=== PATIENT | male | born 1970 | race Caucasian/White ===

== ENCOUNTER 2016-11-20 14:47 | Inpatient (IN) | payer BC, OTHER ==
[~2016-11-20] VITALS: Ht 172.7 cm; Wt 168.8 kg
[2016-11-20] VITALS (13 sets, daily range): BP systolic 85–150; BP diastolic 31–77; PULSE 80–100; TEMP 36.4–36.6; O2SAT 91–98; BMI 57.7
[2016-11-20] MEDS: HEPARIN SOD (PORCINE) 1000 UNIT/ML 10 ML VIAL IV SCH ×2 (01:00→23:15)
[2016-11-20] MEDS ORDERED: BUPR75TA20 PO (15:43)
[2016-11-20] MEDS ORDERED: GLC/500 PO (15:43)
[2016-11-20] MEDS ORDERED: GABA-112 PO (15:43)
[2016-11-20] MEDS ORDERED: ASPI81TA28 PO (15:43)
[2016-11-20] MEDS ORDERED: AMT50 PO (15:43)
[2016-11-20] MEDS ORDERED: ATOR10TA88 PO (15:43)
[2016-11-20] MEDS ORDERED: AZITHROMYCIN IV 500 MG in DEXTROSE 5% 250ML 250 ML IV STA (15:52)
[2016-11-20] MEDS ORDERED: ALBUT/IPRATROP 3MG/0.5MG NEB 3 ML VIAL INH STA (15:52)
[2016-11-20] MEDS ORDERED: MAGNESIUM SULFATE 1GM / D5W 1 GM BAG IV STA (15:52)
[2016-11-20 15:57] LABS: BASO % 0.1 %; BASO ABS # 0.02 K/uL (0-0.2); COMPLETE YES; EOS % 0.9 %; HEMATOCRIT 40.3 % (42-52); IG% 0.5 %; LYMPH ABS # 1.81 K/uL (1.2-3.4); MEAN CORPUSCULAR HEMOGLOBIN 31.1 pg (25-34); MEAN CORPUSCULAR HGB CONC 33.7 g/dl (32-36); MEAN PLATELET VOLUME 9.9 fL (7.4-10.4); NEUT % 80.5 %; PLATELET COUNT 272 K/uL (130-400); RED BLOOD COUNT 4.38 M/uL (4.7-6.1); WHITE BLOOD COUNT 15.06 K/uL (4.8-10.8)
[2016-11-20] MEDS ORDERED: METHYLPREDNISOLONE IV 125 MG in SYRINGE 0 ML IV SCH (16:00)
[2016-11-20] MEDS: ALBUT/IPRATROP 3MG/0.5MG NEB 3 ML VIAL INH SCH ×2 (16:00→16:57)
[2016-11-20] MEDS ORDERED: PIPERACILLIN/TAZOBACTAM 4.5 GM/100ML D5W IV STA (16:07)
[2016-11-20] MEDS ORDERED: VANCOMYCIN INJ 2,750 MG in SODIUM CHLORIDE 0.9% 500ML 500 ML IV STA (16:07)
--- NOTE | 2016-11-20 16:28 | EMERGENCY ROOM VISIT NOTE ---
History Report prepared by Duane: Terrance Payne Under the Supervision of: Dr. Lion Cota M.D. First contact with patient: 14:54 Chief Complaint: DIZZY Stated Complaint: DIZZY, WEAK, KNEE FALLING, DIFF BREATHING, SHAKEY Nursing Triage Summary: pt for the last 2 wks he has had dizziness, falling, SOB pt was told by coworkers to come in and sig other states he has been confused History of Present Illness The patient is a 46 year old male who presents to the Emergency Room with complaints of worsening shortness of breath beginning two weeks ago. The patient also complains of dizziness, and a productive cough. His cough produces a yellow or "dark-white" sputum. He notes that his coworkers and family have found the patient to be confused recently with some slurred speech, and has been falling asleep very easily. The patient denies any fevers, chills, nausea, vomiting, or abnormal diarrhea. He is a smoker and smokes 15 cigarettes per day. He is chronically on Ativan and Percocet. The patient states that he has fallen a few times recently as well. He states that fell out of bed while sleeping, and fell after getting up from a chair quickly. He denies any recent prolonged immobilization. The patient has no history of blood clots. Source of History: patient Onset: Two weeks ago Quality: other (shortness of breath) Timing: worsening Associated Symptoms: + cough, No fevers, No chills, No nausea, No vomiting, No diarrhea (abnormal) Note: Additional symptoms: dizziness, confusion, slurred speech. Review of Systems See HPI for pertinent positives and negatives. A total of ten systems were reviewed and were otherwise negative. Past Medical & Surgical Medical Problems: (1) Anxiety (2) Depression (3) Diabetes mellitus, type II (4) Dyslipidemia (5) HTN (hypertension) (6) Morbid obesity with BMI of 45.0-49.9, adult Surgical Problems: (1) H/O foot surgery (2) History of back surgery Family History No pertinent family history stated. Social History Occupation Status: employed Current/Historical Medications Scheduled Amitriptyline Hcl (Elavil), 25 MG PO HS Aspirin (Aspirin Ec), 81 MG PO DAILY Atorvastatin (Lipitor), 10 MG PO DAILY Bupropion (Wellbutrin), 75 MG PO DAILY Gabapentin (Neurontin), 100 MG PO TID Metformin Hcl (Glucophage), 500 MG PO BID Allergies Coded Allergies: No Known Allergies (Unverified , 11/20/16) Physical Exam Vital Signs Date Time Temp Pulse Resp B/P (MAP) Pulse Ox O2 Delivery O2 Flow Rate FiO2 11/20/16 16:53 96 26 106/62 93 BiPAP 11/20/16 16:53 100 93 4.0 11/20/16 16:18 88 24 91 Nasal Cannula 2.0 11/20/16 15:16 100 11/20/16 14:59 91 Nasal Cannula 4.0 11/20/16 14:59 91 Nasal Cannula 4.0 11/20/16 14:51 36.5 109 22 146/73 87 Room Air Physical Exam GENERAL: Awake, alert, Dyspneic in mild distress HENT: Normocephalic, atraumatic. Oropharynx unremarkable. Dry mucous membranes. EYES: Normal conjunctiva. Sclera non-icteric. NECK: Supple. No nuchal rigidity. FROM. No JVD. RESPIRATORY: Diminished breath sounds throughout with wheezes. Labored breathing with accessory muscle use. CARDIAC: Regular rate, normal rhythm. Extremities warm and well perfused. Pulses equal. ABDOMEN: Obese, soft, non-distended. No tenderness to palpation. No rebound or guarding. No masses. RECTAL: Deferred. MUSCULOSKELETAL: Chest examination reveals no tenderness. The back is symmetrical on inspection without obvious abnormality. There is no CVA tenderness to palpation. No joint edema. LOWER EXTREMITIES: No discoloration. Symmetric 1+ lower extremity edema. NEURO: Normal sensorium. No sensory or motor deficits noted. SKIN: No rash or jaundice noted. Medical Decision & Procedures ER Provider Diagnostic Interpretation: X-ray: Per my interpretation, radiologist review. CHEST ONE VIEW PORTABLE FINDINGS: The study is significantly limited secondary to the patient's body habitus. The heart is enlarged. There is mediastinal widening, possibly secondary to mediastinal fat deposition. There are hazy bibasilar opacities. While likely relating to overlying soft tissue, a right basal airspace opacity cannot be excluded. A PA and lateral study is recommended in follow-up.[ IMPRESSION: 1. Technically limited study 2. Mild cardiomegaly 3. Mediastinal widening, possibly secondary to fat deposition 4. Right basal airspace opacity versus overlying chest wall tissues. A PA and lateral study should be considered in follow-up. Electronically signed by: Immanuel Taylor M.D. 11/20/2016 5:07 PM Laboratory Results 11/20/16 15:40 Red Blood Count 4.38, Mean Corpuscular Volume 92.0, Mean Corpuscular Hemoglobin 31.1, Mean Corpuscular Hemoglobin Concent 33.7, Mean Platelet Volume 9.9, Neutrophils (%) (Auto) 80.5, Lymphocytes (%) (Auto) 12.0, Monocytes (%) (Auto) 6.0, Eosinophils (%) (Auto) 0.9, Basophils (%) (Auto) 0.1, Neutrophils # (Auto) 12.12, Lymphocytes # (Auto) 1.81, Monocytes # (Auto) 0.91, Eosinophils # (Auto) 0.13, Basophils # (Auto) 0.02 Test 11/20/16 00:00 11/20/16 15:40 11/20/16 15:44 11/20/16 16:40 Urine Color YELLOW Urine Appearance CLOUDY (CLEAR) Urine pH 5.0 (4.5-7.5) Urine Specific [place] >= 1.030 (1.000-1.030) Urine Protein 1+ (NEG) Urine Glucose (UA) NEG (NEG) Urine Ketones TRACE (NEG) Urine Occult Blood 2+ (NEG) Urine Nitrite NEG (NEG) Urine Bilirubin NEG (NEG) Urine Urobilinogen NEG (NEG) Urine Leukocyte Esterase NEG (NEG) Urine RBC >30 /hpf (0-4) Urine WBC 5-10 /hpf (0-5) Urine Epithelial Cells >30 /lpf (0-5) Urine Calcium Oxalate Crystals PRESENT (NONE PRSENT) Urine Bacteria NEG (NEG) White Blood Count 15.06 K/uL (4.8-10.8) Red Blood Count 4.38 M/uL (4.7-6.1) Hemoglobin 13.6 g/dL (14.0-18.0) Hematocrit 40.3 % (42-52) Mean Corpuscular Volume 92.0 fL (80-100) Mean Corpuscular Hemoglobin 31.1 pg (25-34) Mean Corpuscular Hemoglobin Concent 33.7 g/dl (32-36) Platelet Count 272 K/uL (130-400) Mean Platelet Volume 9.9 fL (7.4-10.4) Neutrophils (%) (Auto) 80.5 % Lymphocytes (%) (Auto) 12.0 % Monocytes (%) (Auto) 6.0 % Eosinophils (%) (Auto) 0.9 % Basophils (%) (Auto) 0.1 % Neutrophils # (Auto) 12.12 K/uL (1.4-6.5) Lymphocytes # (Auto) 1.81 K/uL (1.2-3.4) Monocytes # (Auto) 0.91 K/uL (0.11-0.59) Eosinophils # (Auto) 0.13 K/uL (0-0.5) Basophils # (Auto) 0.02 K/uL (0-0.2) RDW Standard Deviation 50.9 fL (36.4-46.3) RDW Coefficient of Variation 15.2 % (11.5-14.5) Immature Granulocyte % (Auto) 0.5 % Immature Granulocyte # (Auto) 0.07 K/uL (0.00-0.02) Direct Bilirubin 0.1 mg/dl (0-0.2) Pro-B-Type Natriuretic Peptide 4492 pg/ml (0-450) Procalcitonin 0.26 ng/ml (0-0.5) Hepatitis B Surface Antigen NEG (NEG) Hepatitis B Surface Antibody NEG Bedside Lactic Acid Venous 2.22 mmol/L (0.90-1.70) Venous Blood pH 7.19 (7.36-7.41) Venous Blood Partial Pressure CO2 59 mmHg (38.0-50.0) Venous Blood Partial Pressure O2 38 mmHg Venous Blood HCO3 22 mmol/L Venous Blood Oxygen Saturation < 60.0 % Venous Blood Base Excess -7.1 mEq/L Laboratory results reviewed by me Medications Administered Medications (Trade) Dose Ordered Sig/Marcell Route Start Time Stop Time Status Last Admin Dose Admin Azithromycin 500 mg/Dextrose 255 ml @ 125 mls/hr NOW STAT IV 11/20/16 15:52 11/20/16 17:54 DC 11/20/16 16:53 125 MLS/HR Magnesium Sulfate (Magnesium Sulfate) 2 gm NOW STAT IV 11/20/16 15:52 11/20/16 16:08 DC 11/20/16 15:52 2 GM Vancomycin HCl 2750 mg/Sodium Chloride 555 ml @ 200 mls/hr ONE STAT IV 11/20/16 16:07 11/20/16 18:53 DC 11/20/16 16:53 200 MLS/HR Piperacillin Sod/ Tazobactam Sod (Zosyn Iv) 4.5 gm NOW STAT IV 11/20/16 16:07 11/20/16 16:11 DC 11/20/16 17:24 4.5 GM Calcium Gluconate 2000 mg/Sodium Chloride 70 ml @ 240 mls/hr NOW STAT IV 11/20/16 17:10 11/20/16 17:27 DC 11/20/16 17:51 240 MLS/HR Dextrose (Dextrose 50% 50ML Syringe) 100 ml NOW STAT IV 11/20/16 17:10 11/20/16 17:13 DC 11/20/16 17:52 100 ML Sodium Polystyrene Sulfonate (Kayexalate Susp) 30 gm NOW STAT PO 11/20/16 17:10 11/20/16 17:13 DC 11/20/16 17:53 30 GM Methylprednisolone Sodium Succinate 125 mg/Syringe 2 ml @ 1.5 mls/min 1730 ONCE IV 11/20/16 17:30 11/20/16 17:31 DC 11/20/16 17:49 1.5 MLS/MIN Insulin Human Regular 10 units/ Syringe 10 ml @ 30 mls/min TODAY@1745 ONCE IV 11/20/16 17:45 11/20/16 17:46 DC 11/20/16 17:52 30 MLS/MIN ECG Indication: SOB/dyspnea Rate (beats per minute): 100 Rhythm: normal sinus Findings: other (QRS of 174) Comparison ECG Date: June 22, 2010 Change: QRS significantly prolonged. ED Course 1506: The patient was evaluated in room A10. A complete history and physical exam was performed. 1552: Ordered DuoNeb 45 mL INH, Magnesium Sulfate 2 gm IV, Azithromycin 500 mg/ Dextrose 255 mL @ 125 mL/hr IV. 1600: Ordered DuoNeb 3 mL INH. 1607: Ordered Zosyn 4.5 gm IV, Vancomycin 555 mL @ 200 mL/hr IV. 1710: Ordered Kayexalate Susp 30 gm PO, Dextrose 50% 100 mL IV, Calcium Gluconate 2000 mg/Sodium Chloride 70 ml @ 240 mls/hr IV. 1725: Upon reexamination, the patient was resting comfortably. I discussed the test results and treatment plan with him. The patient will be evaluated for further management. 1730: Ordered Methylprednisolone Sodium Succinate 125 mg 2 mL @ 1.5 mL/min 1745: Ordered Insulin Human Regular 10 units/syringe 10 mL @ 30 mL/min IV. Medical Decision Triage Nursing notes reviewed. The patient's presentation and history were concerning for COPD exacerbation, pneumonia, bronchitis, PE, sepsis, ACS, and renal failure. The patient is a 46-year-old gentleman with a past medical history of 20 years of one pack per day who presents emergency Department with worsening fatigue dyspnea, lightheadedness for the past 3 weeks that became worse today per history of present illness. While the patient is dyspneic in mild distress one or 2 words in in between breath taking, patient is diminished with diffuse wheezes throughout. Bedside echo is limited secondary to body habitus but LV and RV function appear grossly intact. His most consistent with a undiagnosed COPD and exacerbation. 2 with continuous steroids mag, azithro. Lactate elevated at 2. therefore we'll treat with broad-spectrum antibiotics for sepsis. The patient's dyspnea persists despite nebs, placed on BiPAP. VBG with CO2 59, pH 7.19. Received call from lab regarding chemistry, which had been delayed. Cr. 7 and potassium 9. Labs momentarily not pushing over to [employer]. Eventually labs printed confirmed Cr. 7 but with K 6.6 In setting of hyperkalemia patient's EKG concerning for related changes with QRS 170s with RBBB different from prior EkG 2010. Given Calcium, Insulin, dextrose, Kayexalate. I d/w Dr. Barrientos nephrology who will evaluate the patient. I d/w Dr. Gonzalez , ICU rat culturist, and Dr. Arrieta, Medicine hospitalist who will admit the patient to the ICU for further management. Medication Reconcilliation Current Medication List: was personally reviewed by me Blood Pressure Screening Patient's blood pressure: Elevated blood pressure Blood pressure disposition: Elevated BP felt to be situational Consults Time Called: 1715 Consulting Physician: Dr. Barrientos -Nephrology Returned Call: [phone] Discussed the patient's case. Dr. Barrientos will evaluate the patient. Additional Consults: Time Called: 1715 Consulted Physician: Dr. Gonzalez -ICU Returned Call: [phone] Additional Comments: Discussed the patient's case. The patient will be evaluated in the ICU. Time Called: 1723 Consulted Physician: Dr. Berny Hernandez Returned Call: [phone] Additional Comments: Discussed the patient's case. The patient will be evaluated for further treatment and disposition. Impression Primary Impression: Respiratory failure with hypercapnia Additional Impressions: Sepsis Acute renal failure Critical Care I have personally spent greater than 125 minutes of critical care time in the direct management of this patient. This includes bedside care, interpretation of diagnostic studies, and testing, discussion with consultants, patient, and family members, and other required patient management activities. This 125 minutes is in excess of all separately billable procedures. Scribe Attestation The scribe's documentation has been prepared under my direction and personally reviewed by me in its entirety. I confirm that the note above accurately reflects all work, treatment, procedures, and medical decision making performed by me. Departure Information Dispostion Being Evaluated By Hospitalist Referrals Syed Wolff M.D.([facility]) (PCP) Patient Instructions My [facility] Problem Qualifiers
[2016-11-20 16:55] LABS: VEN BLOOD GAS BASE EXCESS -7.1 mEq/L; VENOUS BLOOD GAS PCO2 59 mmHg (38.0-50.0); VENOUS BLOOD GAS PO2 38 mmHg
[2016-11-20 16:57] LABS: VEN BLD GAS O2 SATURATION < 60.0 %
--- NOTE | 2016-11-20 17:05 | EMERGENCY ROOM VISIT NOTE ---
History First contact with patient: 14:55 Chief Complaint: DIZZY Stated Complaint: DIZZY, WEAK, KNEE FALLING, DIFF BREATHING, SHAKEY Nursing Triage Summary: pt for the last 2 wks he has had dizziness, falling, SOB pt was told by coworkers to come in and sig other states he has been confused History of Present Illness The patient is a 46 year old male who presents to the Emergency Room with complaints of two weeks of shortness of breath and wheezing -Pt is accompanied by his sister. -Pt says he came into today because coworkers and family have noticed that he had been confused lately -Pt complains of productive cough during this duration. -Pt has smoked 1 ppd for 23 years -Pt has a PMHx of HTN, HLD, T2DM, anxiety -Pt describes trouble sleeping in the evening and day time somnolence. -Pt denies CP, fevers and upper respiratory symptoms -Pt denies N/V/D Review of Systems see below Constitutional: No fever, No chills, No sweats Respiratory: + cough, + sputum, + wheezing, + shortness of breath, + dyspnea on exertion, + dyspnea at rest Cardiovascular: No chest pain Abdomen: No pain, No nausea, No vomiting Past Medical/Surgical History Medical Problems: (1) Diabetes (2) HTN (hypertension) (3) Hyperkalemia (4) Hyperlipemia (5) Renal failure Social History Smoking Status: Current Every Day Smoker Alcohol Use: none Drug Use: none Marital Status: single Housing Status: lives alone Pt lives alone, works as a gate clerk Current/Historical Medications Scheduled Amitriptyline Hcl (Elavil), 25 MG PO HS Aspirin (Aspirin Ec), 81 MG PO DAILY Atorvastatin (Lipitor), 10 MG PO DAILY Bupropion (Wellbutrin), 75 MG PO DAILY Gabapentin (Neurontin), 100 MG PO TID Metformin Hcl (Glucophage), 500 MG PO BID Physical Exam Vital Signs Date Time Temp Pulse Resp B/P (MAP) Pulse Ox O2 Delivery O2 Flow Rate FiO2 11/20/16 16:53 96 26 106/62 93 BiPAP 11/20/16 16:53 100 93 4.0 11/20/16 16:18 88 24 91 Nasal Cannula 2.0 11/20/16 15:16 100 11/20/16 14:59 91 Nasal Cannula 4.0 11/20/16 14:59 91 Nasal Cannula 4.0 11/20/16 14:51 36.5 109 22 146/73 87 Room Air Physical Exam see below General Appearance: + moderate distress, + obese Head: normocephalic, atraumatic Eyes: normal inspection, sclerae normal ENT: normal ENT inspection, hearing grossly normal, pharynx normal Neck: supple, no adenopathy, + pertinent finding (Pt has thick neck ) Respiratory/Chest: chest non-tender, + respiratory distress, + accessory muscle use, + wheezing (throughout, bilaterally on inspiration and expiration ) Cardiovascular: regular rate, rhythm, no edema, no murmur, + pertinent finding Abdomen / GI: normal bowel sounds, non tender, + distended Extremities: + pedal edema, + swelling Medical Decision & Procedures Laboratory Results 11/20/16 15:40 Red Blood Count 4.38, Mean Corpuscular Volume 92.0, Mean Corpuscular Hemoglobin 31.1, Mean Corpuscular Hemoglobin Concent 33.7, Mean Platelet Volume 9.9, Neutrophils (%) (Auto) 80.5, Lymphocytes (%) (Auto) 12.0, Monocytes (%) (Auto) 6.0, Eosinophils (%) (Auto) 0.9, Basophils (%) (Auto) 0.1, Neutrophils # (Auto) 12.12, Lymphocytes # (Auto) 1.81, Monocytes # (Auto) 0.91, Eosinophils # (Auto) 0.13, Basophils # (Auto) 0.02 11/20/16 15:40 Test 11/20/16 15:40 11/20/16 15:44 11/20/16 16:40 White Blood Count 15.06 K/uL (4.8-10.8) Red Blood Count 4.38 M/uL (4.7-6.1) Hemoglobin 13.6 g/dL (14.0-18.0) Hematocrit 40.3 % (42-52) Mean Corpuscular Volume 92.0 fL (80-100) Mean Corpuscular Hemoglobin 31.1 pg (25-34) Mean Corpuscular Hemoglobin Concent 33.7 g/dl (32-36) Platelet Count 272 K/uL (130-400) Mean Platelet Volume 9.9 fL (7.4-10.4) Neutrophils (%) (Auto) 80.5 % Lymphocytes (%) (Auto) 12.0 % Monocytes (%) (Auto) 6.0 % Eosinophils (%) (Auto) 0.9 % Basophils (%) (Auto) 0.1 % Neutrophils # (Auto) 12.12 K/uL (1.4-6.5) Lymphocytes # (Auto) 1.81 K/uL (1.2-3.4) Monocytes # (Auto) 0.91 K/uL (0.11-0.59) Eosinophils # (Auto) 0.13 K/uL (0-0.5) Basophils # (Auto) 0.02 K/uL (0-0.2) RDW Standard Deviation 50.9 fL (36.4-46.3) RDW Coefficient of Variation 15.2 % (11.5-14.5) Immature Granulocyte % (Auto) 0.5 % Immature Granulocyte # (Auto) 0.07 K/uL (0.00-0.02) Anion Gap 10.0 mmol/L (3-11) Est Creatinine Clear Calc Drug Dose 18.9 ml/min Estimated GFR () 10.0 Estimated GFR (Non- 8.6 BUN/Creatinine Ratio 9.5 (10-20) Calcium Level 8.2 mg/dl (8.5-10.1) Total Bilirubin 0.3 mg/dl (0.2-1) Direct Bilirubin 0.1 mg/dl (0-0.2) Aspartate Amino Transf (AST/SGOT) 17 U/L (15-37) Alanine Aminotransferase (ALT/SGPT) 24 U/L (12-78) Alkaline Phosphatase 66 U/L (45-117) Troponin I < 0.015 ng/ml (0-0.045) Pro-B-Type Natriuretic Peptide 4492 pg/ml (0-450) Total Protein 8.4 gm/dl (6.4-8.2) Albumin 3.6 gm/dl (3.4-5.0) Bedside Lactic Acid Venous 2.22 mmol/L (0.90-1.70) Venous Blood pH 7.19 (7.36-7.41) Venous Blood Partial Pressure CO2 59 mmHg (38.0-50.0) Venous Blood Partial Pressure O2 38 mmHg Venous Blood HCO3 22 mmol/L Venous Blood Oxygen Saturation < 60.0 % Venous Blood Base Excess -7.1 mEq/L Medications Administered Medications (Trade) Dose Ordered Sig/Marcell Route Start Time Stop Time Status Last Admin Dose Admin Azithromycin 500 mg/Dextrose 255 ml @ 125 mls/hr NOW STAT IV 11/20/16 15:52 11/20/16 17:54 DC 11/20/16 16:53 125 MLS/HR Magnesium Sulfate (Magnesium Sulfate) 2 gm NOW STAT IV 11/20/16 15:52 11/20/16 16:08 DC 11/20/16 15:52 2 GM Vancomycin HCl 2750 mg/Sodium Chloride 555 ml @ 200 mls/hr ONE STAT IV 11/20/16 16:07 11/20/16 18:53 11/20/16 16:53 200 MLS/HR Piperacillin Sod/ Tazobactam Sod (Zosyn Iv) 4.5 gm NOW STAT IV 11/20/16 16:07 11/20/16 16:11 DC 11/20/16 17:24 4.5 GM Calcium Gluconate 2000 mg/Sodium Chloride 70 ml @ 240 mls/hr NOW STAT IV 11/20/16 17:10 11/20/16 17:27 DC 11/20/16 17:51 240 MLS/HR Dextrose (Dextrose 50% 50ML Syringe) 100 ml NOW STAT IV 11/20/16 17:10 11/20/16 17:13 DC 11/20/16 17:52 100 ML Sodium Polystyrene Sulfonate (Kayexalate Susp) 30 gm NOW STAT PO 11/20/16 17:10 11/20/16 17:13 DC 11/20/16 17:53 30 GM Methylprednisolone Sodium Succinate 125 mg/Syringe 2 ml @ 1.5 mls/min 1730 ONCE IV 11/20/16 17:30 11/20/16 17:31 DC 11/20/16 17:49 1.5 MLS/MIN Insulin Human Regular 10 units/ Syringe 10 ml @ 30 mls/min TODAY@1745 ONCE IV 11/20/16 17:45 11/20/16 17:46 DC 11/20/16 17:52 30 MLS/MIN ED Course Considering the following differential: New onset obstructive disease: COPD, Asthma, CHF, renal failure 1500 history and physical Ordered preliminary labs and EKG Ordered Duonebs, Bipap, 125 mg Solumedrol IV 1544 Lactate--2.22, WBC--15.06 Started patient empirically on: Azithromycin, Vancomycin and Zosyn Ordered CXR Pt found to have Cr 7 of and K of 6.6. Medical Decision 46 yo male presented today c/o shortness of breath, confusion and dizziness for the past 2 weeks. Initially in the ED course the patient was treated for respiratory distress with Duonebs, solumedrol and BIPAP In addition, as lab works showed elevated lactate and WBC. With this, the patient was started on empiric antibiotic treatment. The patients was found to have an elevated Cr of 7 and K of 6.6. Pt had EKG changes compared with a previous hospitalizations with a RBBB. Thus measures to temporize hyperkalemia with insulin. Additionally, Kayexalate and Ca gluconate were ordered. As precaution, pads were also placed on the patient. Patient was determined to be in renal failure and subsequently consult with nephrology was initiated. In addition, consults with the hospitalist team and the ICU were also initiated. Impression Primary Impression: Renal failure Additional Impressions: Respiratory failure Sepsis Departure Information Dispostion Admitted as an inpatient Referrals Syed Wolff M.D.([facility]) (PCP) Patient Instructions My [facility] Problem Qualifiers
--- NOTE | 2016-11-20 17:08 | DIAGNOSTIC IMAGING REPORT ---
CHEST ONE VIEW PORTABLE CLINICAL HISTORY: Shortness of breath COMPARISON STUDY: 06/22/2010 FINDINGS: The study is significantly limited secondary to the patient's body habitus. The heart is enlarged. There is mediastinal widening, possibly secondary to mediastinal fat deposition. There are hazy bibasilar opacities. While likely relating to overlying soft tissue, a right basal airspace opacity cannot be excluded. A PA and lateral study is recommended in follow-up.[ IMPRESSION: 1. Technically limited study 2. Mild cardiomegaly 3. Mediastinal widening, possibly secondary to fat deposition 4. Right basal airspace opacity versus overlying chest wall tissues. A PA and lateral study should be considered in follow-up. Electronically signed by: Immanuel Taylor M.D. 11/20/2016 5:07 PM Dictated Date/Time: 11/20/2016 5:05 PM
[2016-11-20] MEDS ORDERED: CALCIUM GLUCONATE 10% 2,000 MG in SODIUM CHLORIDE 0.9% 50ML 50 ML IV STA (17:10)
[2016-11-20] MEDS ORDERED: INSULIN HUMAN REGULAR PER UNIT 10 UNITS in SYRINGE 9.9 ML IV STA (17:10)
[2016-11-20] MEDS ORDERED: SODIUM POLYST. SULF SUSP 15G/60ML PO STA (17:10)
[2016-11-20] MEDS ORDERED: DEXTROSE 50% 50 ML SYR IV STA (17:10)
[2016-11-20] MEDS ORDERED: FENTANYL CITRATE 100 MCG 2 ML CARP IV ONE (17:23)
[2016-11-20] MEDS ORDERED: VECURONIUM BROMIDE 10 MG VIAL IV ONE (17:23)
[2016-11-20] MEDS ORDERED: ETOMIDATE 2 MG/ML 20 ML VIAL IV ONE ×2 (17:23→20:00)
[2016-11-20] MEDS ORDERED: ROCURONIUM BROMIDE 10 MG/ML 10 ML VIAL IV ONE (17:23)
[2016-11-20] MEDS ORDERED: METHYLPREDNISOLONE 125 MG in SYRINGE 0 ML IV ONE (17:30)
[2016-11-20] MEDS ORDERED: INSULIN HUMAN REGULAR PER UNIT 10 UNITS in SYRINGE 9.9 ML IV ONE (17:45)
[2016-11-20 17:59] LABS: ALKALINE PHOSPHATASE 66 U/L (45-117); ALT/SGPT 24 U/L (12-78); AST/SGOT 17 U/L (15-37); BLOOD UREA NITROGEN 66 mg/dl (7-18); BUN/CREATININE RATIO 9.5 (10-20); CALCIUM 8.2 mg/dl (8.5-10.1); CARBON DIOXIDE 19 mmol/L (21-32); CHLORIDE 99 mmol/L (98-107); GLUCOSE 93 mg/dl (70-99); POTASSIUM 6.6 mmol/L (3.5-5.1); SODIUM 129 mmol/L (136-145)
[2016-11-20] MEDS ORDERED: HEPARIN SOD 5000 UNIT/0.5 ML CARP SQ SCH (18:15)
[2016-11-20] MEDS ORDERED: ONDANSETRON INJ 2 MG/ML 2 ML VIAL IV PRN (18:15)
[2016-11-20] MEDS ORDERED: LEVALBUTEROL/IPRATROPIUM NEB INH PRN (18:30)
[2016-11-20] MEDS ORDERED: CONSULT PHARMACY STA (18:38)
[2016-11-20] MEDS ORDERED: GLUCOSE 40% GEL 15 GM TUBE PO PRN (18:45)
[2016-11-20] MEDS ORDERED: GLUCAGON FOR INJ 1 MG VIAL SQ PRN (18:45)
[2016-11-20] MEDS ORDERED: GLUCOSE 10 TABS/TUBE PO PRN (18:45)
[2016-11-20] MEDS ORDERED: DEXTROSE 50% 50 ML SYR IV PRN (18:45)
[2016-11-20] MEDS ORDERED: IPRATROPIUM BROMIDE NEB SOLN 0.02% 2.5 ML VIAL INH PRN ×2 (19:00→21:00)
[2016-11-20] MEDS ORDERED: LEVALBUTEROL 1.25MG/0.5ML NEB INH PRN ×2 (19:00→21:00)
[2016-11-20] MEDS: FENTANYL CITRATE INJ 50 MCG/1 ML 2 ML VIAL IV PRN ×2 (19:30→22:51)
[2016-11-20] MEDS ORDERED: PIPERACILL/TAZOBAC CONSULT ACTIVE PRN (19:45)
[2016-11-20] MEDS ORDERED: CIPROFLOXACIN CONSULT ACTIVE PRN ×2 (19:45)
[2016-11-20] MEDS ORDERED: VANCOMYCIN CONSULT ACTIVE PRN (19:45)
[2016-11-20] MEDS ORDERED: RAPID SEQUENCE INDUCTION BAG ONE (19:46)
[2016-11-20] MEDS ORDERED: MIDAZOLAM 125MG/250ML D5W 250 ML IV SCH (19:48)
--- NOTE | 2016-11-20 19:57 | Nephrology Consultation ---
Nephrology Consultation Date of Consultation: Nov 20, 2016. Attending Physician: Dr Cota Requesting Physician: Dr Cota Reason for Consultation: Hyperkalemia History of Present Illness 46 year old male on whom we have few recent records came to ER today w/ confusion reported at work and a few weeks of wheezing and shortness of breath and productive cough w/ yellow sputum. Other PMH includes NIDDM, HTN, HL, 1PPD cigarettes, chronic pain, morbid obesity, depression and anxiety. Labs in ER remarkable for creatinine 7 and K 6.6, C02 19; WBC 15K. His 02 sats were in 80s on arrival; he needed bipap to improve/maintain them. His ECG shows RBBB. He was given kayexalate, calcium, insulin IV, long neb treatment. Repeat bmp is pending as is ABG. He has been here for 3 hrs and has not yet voided. Denies nsaid use. The med list in [facility] reports that he takes hctz, lisinopril; however none of these are listed on meds he reports at hospital today. His sister reports he has been having vertiginal sx for several weeks prior to presentation. The pt denies new/changing voiding sx or flank pain or gross hematuria or recent med change. He is sitting up/leaning forward in mild distress mostly from being restless on bipap. He speaks in full sentences and gives some hx. Does relate, for example, recent fall out of bed and scraped his R conklin doing this. Most recent [facility] records show creatinine of 1.1 in 02/2015. he can give some history tonight but is also confused. Past Medical/Surgical History Medical Problems: (1) Acute kidney injury Status: Acute (2) Hyperkalemia Status: Acute (3) Respiratory failure with hypercapnia Status: Acute (4) Sepsis Status: Acute -as per HPI Family History unable to obtain d/t clinical condition Social History Smoking Status: Current Every Day Smoker Alcohol Use: none Drug Use: none Marital Status: single Housing Status: lives alone Occupation Status: employed Allergies Coded Allergies: No Known Allergies (Unverified , 11/20/16) Medications Current Inpatient Medications Medications (Trade) Dose Ordered Sig/Marcell Route Start Time Stop Time Status Last Admin Dose Admin Albuterol/ Ipratropium (Duoneb) 3 ml Q4R INH 11/20/16 16:00 12/20/16 15:59 Ondansetron HCl (Zofran Inj) 4 mg Q6H PRN IV 11/20/16 18:15 12/20/16 18:14 Methylprednisolone Sodium Succinate 125 mg/Syringe 2 ml @ 1.5 mls/min Q8 IV 11/21/16 02:00 12/21/16 01:59 UNV Miscellaneous Information (Pharmacy Consult) 1 ea NOW STAT N/A 11/20/16 18:38 11/20/16 18:39 UNV Insulin Aspart (novoLOG ASPART) SLIDING SCALE If C... ACHS SC 11/20/16 21:00 12/20/16 20:59 UNV Glucose (Glucose 40% Gel) 15-30 GRAMS 15 GRAMS... UD PRN PO 11/20/16 18:45 12/20/16 18:44 Glucose (Glucose Chew Tab) 4-8 Tablets 4 Tabl... UD PRN PO 11/20/16 18:45 12/20/16 18:44 Dextrose (Dextrose 50% 50ML Syringe) 25-50ML OF 50% DW IV FOR... UD PRN IV 11/20/16 18:45 12/20/16 18:44 Glucagon (Glucagon Inj) 1 mg UD PRN SQ 11/20/16 18:45 12/20/16 18:44 Ipratropium [place] (Atrovent 0.02% 0.5MG/2.5ML Neb) 0.5 mg Q6R INH 11/20/16 21:00 12/20/16 20:59 Levalbuterol (Xopenex 1.25MG/ 0.5ML Neb) 1.25 mg Q6R INH 11/20/16 21:00 12/20/16 20:59 Ipratropium [place] (Atrovent 0.02% 0.5MG/2.5ML Neb) 0.5 mg Q2H PRN INH 11/20/16 19:00 12/20/16 18:59 Levalbuterol (Xopenex 1.25MG/ 0.5ML Neb) 1.25 mg Q2H PRN INH 11/20/16 19:00 12/20/16 18:59 Home Meds and Scripts Medications Dose Route/Sig Max Daily Dose Days Date Category Aspirin Ec (Aspirin) 81 Mg Tab 81 Mg PO DAILY 11/20/16 Reported Elavil (Amitriptyline HCl) 50 Mg Tab 25 Mg PO HS 11/20/16 Reported Neurontin (Gabapentin) 100 Mg Cap 100 Mg PO TID 11/20/16 Reported Wellbutrin (Bupropion HCl) 75 Mg Tab 75 Mg PO DAILY 11/20/16 Reported Glucophage (Metformin Hcl) 500 Mg Tab 500 Mg PO BID 11/20/16 Reported Lipitor (Atorvastatin Calcium) 10 Mg Tab 10 Mg PO DAILY 11/20/16 Reported Review of Systems Constitutional: + weakness, No fever, No chills Eyes: No worsening of vision ENT: No hearing loss Respiratory: + see HPI, + cough, + sputum, + wheezing, + shortness of breath Cardiac: No chest pain, No edema, No palpitations Abdomen: No pain, No nausea, No vomiting, No diarrhea, No constipation Musculoskeletal: No joint pain, No muscle pain Male : No dysuria, No urinary frequency, No hematuria Neuro: + weakness, + balance problems, No memory loss Psych: No depression symptoms, No anxiety Heme: No abnormal bleeding/bruising Endo: + fatigue Skin: No rash, No itch Physical Exam Date Time Temp Pulse Resp B/P (MAP) Pulse Ox O2 Delivery O2 Flow Rate FiO2 11/20/16 19:01 89/61 11/20/16 18:57 94 21 87/36 93 Room Air 11/20/16 18:14 90 24 113/70 94 BiPAP 11/20/16 16:53 96 26 106/62 93 BiPAP 11/20/16 16:53 100 93 4.0 11/20/16 16:18 88 24 91 Nasal Cannula 2.0 11/20/16 15:16 100 11/20/16 14:59 91 Nasal Cannula 4.0 11/20/16 14:59 91 Nasal Cannula 4.0 11/20/16 14:51 36.5 109 22 146/73 87 Room Air General Appearance: WD/WN, + mild distress, + obese, + pertinent finding ( restless on bipap; doses off for 1-2 seconds frequently) Eyes: EOMI ENT: hearing grossly normal Neck: supple Respiratory/Chest: no accessory muscle use, + decreased breath sounds, + wheezing, + expiration Cardiovascular: regular rate, rhythm, no edema Abdomen: normal bowel sounds, non tender, soft Extremities: no pedal edema Neurologic/Psych: alert, oriented x 3, + pertinent finding (oriented x 3 and mostly reasonable historian) Skin: + pertinent finding (abrasion R conklin) Diagnostics Last 24 Hours Test 11/20/16 15:40 11/20/16 15:44 11/20/16 16:40 11/20/16 18:19 White Blood Count 15.06 K/uL Red Blood Count 4.38 M/uL Hemoglobin 13.6 g/dL Hematocrit 40.3 % Mean Corpuscular Volume 92.0 fL Mean Corpuscular Hemoglobin 31.1 pg Mean Corpuscular Hemoglobin Concent 33.7 g/dl Platelet Count 272 K/uL Mean Platelet Volume 9.9 fL Neutrophils (%) (Auto) 80.5 % Lymphocytes (%) (Auto) 12.0 % Monocytes (%) (Auto) 6.0 % Eosinophils (%) (Auto) 0.9 % Basophils (%) (Auto) 0.1 % Neutrophils # (Auto) 12.12 K/uL Lymphocytes # (Auto) 1.81 K/uL Monocytes # (Auto) 0.91 K/uL Eosinophils # (Auto) 0.13 K/uL Basophils # (Auto) 0.02 K/uL RDW Standard Deviation 50.9 fL RDW Coefficient of Variation 15.2 % Immature Granulocyte % (Auto) 0.5 % Immature Granulocyte # (Auto) 0.07 K/uL Sodium Level 129 mmol/L Potassium Level 6.6 mmol/L Chloride Level 99 mmol/L Carbon Dioxide Level 19 mmol/L Anion Gap 10.0 mmol/L Blood Urea Nitrogen 66 mg/dl Creatinine 7.00 mg/dl Est Creatinine Clear Calc Drug Dose 18.9 ml/min Estimated GFR () 10.0 Estimated GFR (Non- 8.6 BUN/Creatinine Ratio 9.5 Random Glucose 93 mg/dl Calcium Level 8.2 mg/dl Total Bilirubin 0.3 mg/dl Direct Bilirubin 0.1 mg/dl Aspartate Amino Transf (AST/SGOT) 17 U/L Alanine Aminotransferase (ALT/SGPT) 24 U/L Alkaline Phosphatase 66 U/L Troponin I < 0.015 ng/ml Pro-B-Type Natriuretic Peptide 4492 pg/ml Total Protein 8.4 gm/dl Albumin 3.6 gm/dl Bedside Lactic Acid Venous 2.22 mmol/L Venous Blood pH 7.19 Venous Blood Partial Pressure CO2 59 mmHg Venous Blood Partial Pressure O2 38 mmHg Venous Blood HCO3 22 mmol/L Venous Blood Oxygen Saturation < 60.0 % Venous Blood Base Excess -7.1 mEq/L Test 11/20/16 18:25 Diagnostic Radiology: cxr > limited by body habitus; ?R base opacity EKG: RBBB Assessment & Plan 46 y/o M w/ NIDDM, HTN, BMI 50, active tobacco abuse, anxiety/depression admitted for hyperkalemia and acute renal and respiratory failure. He reports several weeks of productive cough prior to admission and orthostatic symptoms. Multiple data are pending, including ABG, repeat bmp after initial therapy. Baseline creatinine from about 18 mos ago is 1.1. he may have been using ELIZA/ hctz as outpt; outpt meds still not clear. -place velázquez; strict I/O -f/u pending ABG, f/u pending repeat bmp -check CK -ideally we should attempt a trial of gentle fluids if possible (no pulmonary edema CXR) >> need to see f/u labs to make best recommendation which type; start w/ NS at 100 mL hourly while these are pending -follow bmp q 6h urgent -added mag to admission labs -renal diet when taking po -no indication for emergent dialysis though I cannot rule out need; consent obtained/ on chart in case it is needed Appreciate consult; will follow with you; care coordinated w/ Dr. Gonzalez and w / [facility] hospitalist team
[2016-11-20] MEDS ORDERED: ROCURONIUM BROMIDE 10 MG/ML 10 ML VIAL IV SCH (20:00)
--- NOTE | 2016-11-20 20:00 | History and Physical ---
History & Physical Date & Time of Service: Nov 20, 2016 at 18:54 Chief Complaint: Dizzy, Weak, Knee Falling, Diff Breathing, Shakey Primary Care Physician: Syed Wolff M.D.(ANIYAH) History of Present Illness Source: patient, clinic records This is a 46 y/o male with PMH of DM 2, HTN, morbid obesity, depression, chronic smoker, and other problems listed below who presents to the ED with shortness of breath. Pt reports 2 week history of SOB which worsens with talking , movement, and supine position. He reports associated cough with yellow sputum , dizziness, 2 falls out of bed overnight. He reports chronic diarrhea with 2-3 liquid BM per day. States bilateral LE edema is unchanged from baseline. He reports chronic diarrhea 2-3 episodes per day. Last voided at 3:30 pm today. Denies fever, chills, rhinorrhea, sore throat, chest pain, palpitations, abdominal pain, N/V, dysuria, frequency, urgency. Denies recent abx or hospitalization. Denies hx of pulmonary or renal disease. Denies use of NSAIDs. Past Medical/Surgical History Medical Problems: (1) Anxiety Status: Chronic (2) Depression Status: Chronic (3) Diabetes mellitus, type II Status: Chronic (4) Dyslipidemia Status: Chronic (5) HTN (hypertension) Status: Chronic (6) Morbid obesity with BMI of 45.0-49.9, adult Status: Chronic Family History FH: CAD (coronary artery disease) MOTHER FH: cancer FATHER (prostate) Social History Smoking Status: Current Every Day Smoker (15 cigarettes/ day) Alcohol Use: none Drug Use: none Marital Status: single Immunizations History of Influenza Vaccine: Unknown History of Tetanus Vaccine?: Unknown History of Pneumococcal: Unknown History of Hepatitis B Vaccine: No Allergies Coded Allergies: No Known Allergies (Unverified , 11/20/16) Home Medications Scheduled Amitriptyline Hcl (Elavil), 25 MG PO HS Aspirin (Aspirin Ec), 81 MG PO DAILY Atorvastatin (Lipitor), 10 MG PO DAILY Bupropion (Wellbutrin), 75 MG PO DAILY Gabapentin (Neurontin), 100 MG PO TID Metformin Hcl (Glucophage), 500 MG PO BID Review of Systems Ten systems reviewed and negative except as noted in HPI. Physical Exam Vital Signs Date Time Temp Pulse Resp B/P (MAP) Pulse Ox O2 Delivery O2 Flow Rate FiO2 11/20/16 18:14 90 24 113/70 94 BiPAP 11/20/16 16:53 96 26 106/62 93 BiPAP 11/20/16 16:53 100 93 4.0 11/20/16 16:18 88 24 91 Nasal Cannula 2.0 11/20/16 15:16 100 11/20/16 14:59 91 Nasal Cannula 4.0 11/20/16 14:59 91 Nasal Cannula 4.0 11/20/16 14:51 36.5 109 22 146/73 87 Room Air General Appearance: + mild distress, + obese (morbidly obese), + pertinent finding (sitting up in bed, on BiPAP) Head: normocephalic, atraumatic Eyes: normal inspection, sclerae normal ENT: hearing grossly normal, + pertinent finding (BiPAP in place) Neck: supple, trachea midline Respiratory/Chest: normal breath sounds, no accessory muscle use, + rhonchi, + wheezing, + pertinent finding (mild respiratory distress. speaks in short sentences. saturating well on BiPAP.) Cardiovascular: no murmur, + tachycardia (regular rhythm) Abdomen/GI: normal bowel sounds, non tender, soft Back: normal inspection Extremities/Musculoskelatal: no calf tenderness, + pertinent finding (1+ swelling bilateral LE- chronic per patient) Neurologic/Psych: alert, normal mood/affect, oriented x 3, + pertinent finding (grossly nonfocal) Skin: normal color, warm/dry, + pertinent finding (2 skin tears right anterior lower leg) Diagnostics Laboratory Results Results Past 24 Hours Test 11/20/16 15:40 11/20/16 15:44 11/20/16 16:40 11/20/16 18:19 Range/Units White Blood Count 15.06 4.8-10.8 K/uL Red Blood Count 4.38 4.7-6.1 M/uL Hemoglobin 13.6 14.0-18.0 g/dL Hematocrit 40.3 42-52 % Mean Corpuscular Volume 92.0 80-100 fL Mean Corpuscular Hemoglobin 31.1 25-34 pg Mean Corpuscular Hemoglobin Concent 33.7 32-36 g/dl Platelet Count 272 130-400 K/uL Mean Platelet Volume 9.9 7.4-10.4 fL Neutrophils (%) (Auto) 80.5 % Lymphocytes (%) (Auto) 12.0 % Monocytes (%) (Auto) 6.0 % Eosinophils (%) (Auto) 0.9 % Basophils (%) (Auto) 0.1 % Neutrophils # (Auto) 12.12 1.4-6.5 K/uL Lymphocytes # (Auto) 1.81 1.2-3.4 K/uL Monocytes # (Auto) 0.91 0.11-0.59 K/uL Eosinophils # (Auto) 0.13 0-0.5 K/uL Basophils # (Auto) 0.02 0-0.2 K/uL RDW Standard Deviation 50.9 36.4-46.3 fL RDW Coefficient of Variation 15.2 11.5-14.5 % Immature Granulocyte % (Auto) 0.5 % Immature Granulocyte # (Auto) 0.07 0.00-0.02 K/uL Sodium Level 129 136-145 mmol/L Potassium Level 6.6 3.5-5.1 mmol/L Chloride Level 99 98-107 mmol/L Carbon Dioxide Level 19 21-32 mmol/L Anion Gap 10.0 3-11 mmol/L Blood Urea Nitrogen 66 7-18 mg/dl Creatinine 7.00 0.60-1.40 mg/dl Est Creatinine Clear Calc Drug Dose 18.9 ml/min Estimated GFR () 10.0 Estimated GFR (Non- 8.6 BUN/Creatinine Ratio 9.5 10-20 Random Glucose 93 70-99 mg/dl Calcium Level 8.2 8.5-10.1 mg/dl Total Bilirubin 0.3 0.2-1 mg/dl Direct Bilirubin 0.1 0-0.2 mg/dl Aspartate Amino Transf (AST/SGOT) 17 15-37 U/L Alanine Aminotransferase (ALT/SGPT) 24 12-78 U/L Alkaline Phosphatase 66 45-117 U/L Troponin I < 0.015 0-0.045 ng/ml Pro-B-Type Natriuretic Peptide 4492 0-450 pg/ml Total Protein 8.4 6.4-8.2 gm/dl Albumin 3.6 3.4-5.0 gm/dl Bedside Lactic Acid Venous 2.22 0.90-1.70 mmol/L Venous Blood pH 7.19 7.36-7.41 Venous Blood Partial Pressure CO2 59 38.0-50.0 mmHg Venous Blood Partial Pressure O2 38 mmHg Venous Blood HCO3 22 mmol/L Venous Blood Oxygen Saturation < 60.0 % Venous Blood Base Excess -7.1 mEq/L Test 11/20/16 18:25 Range/Units Microbiology Results 11/20/16 Blood Culture, Received Pending 11/20/16 Blood Culture, Received Pending Diagnostic Radiology CHEST ONE VIEW PORTABLE CLINICAL HISTORY: Shortness of breath COMPARISON STUDY: 06/22/2010 FINDINGS: The study is significantly limited secondary to the patient's body habitus. The heart is enlarged. There is mediastinal widening, possibly secondary to mediastinal fat deposition. There are hazy bibasilar opacities. While likely relating to overlying soft tissue, a right basal airspace opacity cannot be excluded. A PA and lateral study is recommended in follow-up.[ IMPRESSION: 1. Technically limited study 2. Mild cardiomegaly 3. Mediastinal widening, possibly secondary to fat deposition 4. Right basal airspace opacity versus overlying chest wall tissues. A PA and lateral study should be considered in follow-up. EKG sinus rhythm, 100 bpm, RBBB, left posterior fascicular block, Abnormal ECG, When compared with ECG of 22-JUN-2010 10:32, Bifascicular block is now present, as confirmed by cardiology read, also reviewed by me Impression Assessment and Plan ACUTE HYPOXIC RESPIRATORY FAILURE Likely 2/2 COPD exacerbation, possible right sided infiltrate on CXR Placed on BiPAP in ER and treated with Azithromycin, Vancomycin, Zosyn for possible sepsis, pulmonary source (tachycardia, leukocytosis, POC lactic acid 2.22) Blood cultures pending Continue BiPAP, nebs, IV Solu-Medrol, broad spectrum IV abx Check repeat CXR and lactic acid Consult ID ACUTE RENAL FAILURE Creatinine is 7, last creatinine in [facility] was 1.1 in 2016 Unclear etiology. Has underlying HTN and DM Consult nephrology, appreciate recommendations Castañeda catheter Consider adding IVF's HYPERKALEMIA K+ is 6.6 EKG shows RBBB Treated in ER with calcium gluconate, insulin with dextrose, Kayexalate Monitor PRP with mag and phos q6h Telemetry monitoring BORDERLINE HYPOTENSION Possibly due to hypovolemia Hold lisinopril/ HCTZ Noted to have widened mediastinum on CXR, considered stat echo to assess for dissection, discussed with cardiology, echo would be of limited diagnostic value for dissection, considered CTA chest, but unable to obtain due to ARF, recommended noncontrast CT chest, unable to do currently as too unstable to be off the unit Monitor, consider IVF's DM TYPE 2 Hold metformin Novolog sliding scale coverage Anticipate rising BSG's while on IV steroids DEPRESSION Hold home meds while NPO DVT PROPHYLAXIS SCD's FULL CODE Patient seen in collaboration with Dr. Simpson. Please see his addendum. Internal Medicine Attending Physician This is a 46 year old M with morbid obesity and smoking history seen in the ED on BIPAP for acute respiratory distress likely multifactorial from COPD exacerbation, may also have obstructive sleep apnea history and obesity hypoventilation given large body habitus, without clear lobar consolidation on C XR but still may have underlying infectious pulmonary process and has been in the ED given azithromycin, vancomycin, and zosyn. There is a right basal airspace opacity versus overlying chest wall tissues. However there is also mediastinal widening for which this is attributed to fat deposition. While it is less likely to be of vascular concern given lack of chest pain, may be worthwhile to perform imaging studies to rule out cardiac problems such as aortic injuries or pericardial effusions and trend troponins. However, patient appears to be clinically unstable to proceed for imaging study tests given problems with breathing , his large body size habitus possibly difficult to image with ultrasound, patient also found to have acute kidney injury and therefor IV contrast at this time for imaging appears to be detrimental ,with the concern that he may need to be on dialysis. Broad spectrum antibiotics such as vancomycin/zosyn and possibly addition of ciprofloxacin for atypical coverage for pulmonary or inhalation infections may also cause renal injury. Will appreciate renal consultation, ICU physician care and management, and likely will need antibiotics consultation with infectious disease consult. Patient continuing treatment with BIPAP and nebulizer and steroid treatments for respiratory distress and admitted to ICU. High risk for requiring intubation. Will need serial blood gases Resuscitation Status FULL RESUSCITATION VTE Prophylaxis VTE Risk Assessment Done? Y/N: Yes Risk Level: Moderate
[2016-11-20 20:06] LABS: IPAP 12; ISTAT ALLEN TEST Pass; ISTAT ARTERIAL BLOOD GAS HCO3 16 meq/L (19-24); ISTAT ARTERIAL BLOOD GAS PCO2 36 mmHg (35-46); ISTAT ARTERIAL BLOOD GAS PO2 135 mmHg (80-95); ISTAT ARTERIAL BLOOD GAS pH 7.26 (7.35-7.45); ISTAT CARBON DIOXIDE 17 mEq/l (24-31); ISTAT DELIVERY SYSTEM BIPAP; ISTAT FIO2 40 %; ISTAT RATE 12; ISTAT SITE L Radial
[2016-11-20] MEDS ORDERED: SODIUM CHLORIDE 0.9% 1000ML 1,000 ML IV SCH (20:15)
--- NOTE | 2016-11-20 20:41 | Critical Care Consultation ---
Critical Care Consultation Date of Consultation: Nov 20, 2016. Attending Physician: Jun Viveros M.D. Reason for Consultation: Hyperkalemia and NOEMY History of Present Illness Dayo Lemus is a 46-year-old male who presented to the emergency department today with complaints of worsening shortness of breath (worsened with talking, movement and supine position), dizziness or productive cough with yellow/dark white sputum. At that time he stated that had begun approximately 2 weeks earlier. He reported at that time the coworkers, family and his significant other have stated that he has been confused recently and demonstrating slurred speech. He has been falling asleep very easily. Patient stated in the emergency department that he is chronically takes Ativan and Percocet. He stated he has had several falls recently; one, out of bed while sleeping and the second, after getting up out of a chair quickly. Labs in the emergency department demonstrated creatinine of 7, potassium of 6.6, carbon dioxide of 19 and white blood cells of 15,000. His oxygen saturations on arrival were in the 80s and he was placed on BiPAP at that time. The emergency department he was treated for his hyperkalemia with Kayexalate, calcium gluconate, insulin IV and a nebulizer treatment. Per nephrology notes February [address] [facility] records was 1.1. Per my examination of the patient when he arrived to the ICU; his level of confusion has increased to where he is difficult to arouse. Upon reexamination , patient is more altered. With sternal rub he does reach for his chest; however, no corneal reflex is noted. At this time for airway protection due to ultimate status, we elected to intubate the patient. Under rapid sequence intubation patient received 50mg of etomidate, 100 mcg of fentanyl and 20 mg of rocuronium. He was successfully intubated with a 8.0 endotracheal tube via glydescope and is sedated on a Versed drip. Due to patient sedation, intubation and prior altered mental status; I am unable to obtain review of systems. Other background history includes non-insulin dependent diabetes, hypertension, hyperlipidemia and can tin used to smoke 1 pack per day. Diagnosis of chronic pain on medications as listed above. Suspicion of pickwickian and sleep apnea secondary to morbid obesity. Patient suffers from depression and anxiety. Past Medical/Surgical History Medical Problems: Anxiety Depression Diabetes mellitus, type II Dyslipidemia HTN (hypertension) Morbid obesity with BMI of 45.0-49.9, adult Surgical Problems: H/O foot surgery History of back surgery Family History FH: CAD (coronary artery disease) MOTHER FH: cancer FATHER (prostate) Social History Smoking Status: Current Every Day Smoker (15 cigarettes/ day) Alcohol Use: none Drug Use: none Marital Status: single Housing Status: lives alone Allergies Coded Allergies: No Known Allergies (Unverified , 11/20/16) Home Medications Scheduled Amitriptyline Hcl (Elavil), 50 MG PO HS Aspirin (Aspirin Ec), 81 MG PO DAILY Atorvastatin (Atorvastatin Calcium), 40 MG PO DAILY Bupropion Hcl (Wellbutrin Sr), 1 TAB PO BID Gabapentin (Gabapentin), 300 MG PO TID Metformin Hcl (Glucophage), 1 TAB PO BID Sertraline (Zoloft), 200 MG PO DAILY Valacyclovir Hcl (Valtrex), 1 GM PO BID Scheduled PRN Oxycodone/Acetaminophen 10MG/325MG (Percocet 10MG/325MG), 1 TAB PO TID PRN for Pain Current Inpatient Medications Current Inpatient Medications Medications (Trade) Dose Ordered Sig/Macrell Route Start Time Stop Time Status Last Admin Dose Admin Ondansetron HCl (Zofran Inj) 4 mg Q6H PRN IV 11/20/16 18:15 12/20/16 18:14 Methylprednisolone Sodium Succinate 125 mg/Syringe 2 ml @ 1.5 mls/min Q8H IV 11/21/16 02:00 12/21/16 01:59 Insulin Aspart (novoLOG ASPART) SLIDING SCALE If C... ACHS SC 11/20/16 21:00 12/20/16 20:59 Glucose (Glucose 40% Gel) 15-30 GRAMS 15 GRAMS... UD PRN PO 11/20/16 18:45 12/20/16 18:44 Glucose (Glucose Chew Tab) 4-8 Tablets 4 Tabl... UD PRN PO 11/20/16 18:45 12/20/16 18:44 Dextrose (Dextrose 50% 50ML Syringe) 25-50ML OF 50% DW IV FOR... UD PRN IV 11/20/16 18:45 12/20/16 18:44 Glucagon (Glucagon Inj) 1 mg UD PRN SQ 11/20/16 18:45 12/20/16 18:44 Ipratropium [place] (Atrovent 0.02% 0.5MG/2.5ML Neb) 0.5 mg Q6R PRN INH 11/20/16 21:00 12/20/16 20:59 Levalbuterol (Xopenex 1.25MG/ 0.5ML Neb) 1.25 mg Q6R PRN INH 11/20/16 21:00 12/20/16 20:59 Vancomycin HCl (Consult) 1 ea UD PRN N/A 11/20/16 19:45 12/20/16 19:44 Piperacillin Sod/ Tazobactam Sod (Consult) 1 ea UD PRN N/A 11/20/16 19:45 12/20/16 19:44 Ciprofloxacin (Consult) 1 ea UD PRN N/A 11/20/16 19:45 12/20/16 19:44 Piperacillin Sod/ Tazobactam Sod 4.5 gm/Dextrose 120 ml @ 30 mls/hr Q12H IV 11/21/16 02:00 11/27/16 17:59 Rocuronium [place] (Zemuron Inj) 50 mg ONE IV 11/20/16 20:00 11/20/16 23:00 Sodium Chloride 1,000 ml @ 80 mls/hr [id number] IV 11/20/16 20:00 12/20/16 19:59 Fentanyl Citrate (Fentanyl Inj) 100 mcg Q1H PRN IV 11/20/16 20:00 12/04/16 19:59 Midazolam HCl 250 ml @ 0 mls/hr Q0M IV 11/20/16 19:48 12/20/16 19:47 Pantoprazole Sodium 40 mg/ Syringe 10 ml @ 5 mls/min DAILY@2000 IV 11/20/16 20:00 12/20/16 19:59 Review of Systems ROS could not be obtained secondary to patient condition, sedation and intubation. Physical Exam Date Time Temp Pulse Resp B/P (MAP) Pulse Ox O2 Delivery O2 Flow Rate FiO2 11/20/16 19:16 93 98 40 11/20/16 19:01 89/61 11/20/16 18:57 94 21 87/36 93 Room Air 11/20/16 18:14 90 24 113/70 94 BiPAP 11/20/16 16:53 96 26 106/62 93 BiPAP 11/20/16 16:53 100 93 4.0 11/20/16 16:18 88 24 91 Nasal Cannula 2.0 11/20/16 15:16 100 11/20/16 14:59 91 Nasal Cannula 4.0 11/20/16 14:59 91 Nasal Cannula 4.0 11/20/16 14:51 36.5 109 22 146/73 87 Room Air Vital Signs - as noted Laboratory Data - as noted Physical Exam: General - Sedated and Intubated Eyes - pupils equal and slow to respond, No icterus, gaze conjugate ENT -8.[address] in place 28 cm at the teeth, no lesions or candidiasis noted during admission Neck - Supple, trachea midline, no masses or lymphadenopathy, no JVD or bruits Lungs - No paradoxical chest wall movement, coarse to auscultation bilaterally and decreased at bases, no wheezes, rales, or rhonchi Heart - Reg rate and rhythm, No murmur, rubs, clicks, or gallops appreciated Abdomen - BS present, no bruits noted, tympanic to percussion, soft, nontender, obese Extremities - No edema, pedal pulses intact, peripheral vascular disease noted with redness/bronzing of the ankles and calf, 2 open seeping areas on anterior portion of the lower right extremity Neuro - RASS - 3 CN:pupils equal and slow to respond, no facial asymmetry, uvula/tongue midline during intubation, no unilateral signs noted Laboratory Results Last 24 Hours Test 11/20/16 15:40 11/20/16 15:44 11/20/16 16:40 11/20/16 18:19 White Blood Count 15.06 K/uL Red Blood Count 4.38 M/uL Hemoglobin 13.6 g/dL Hematocrit 40.3 % Mean Corpuscular Volume 92.0 fL Mean Corpuscular Hemoglobin 31.1 pg Mean Corpuscular Hemoglobin Concent 33.7 g/dl Platelet Count 272 K/uL Mean Platelet Volume 9.9 fL Neutrophils (%) (Auto) 80.5 % Lymphocytes (%) (Auto) 12.0 % Monocytes (%) (Auto) 6.0 % Eosinophils (%) (Auto) 0.9 % Basophils (%) (Auto) 0.1 % Neutrophils # (Auto) 12.12 K/uL Lymphocytes # (Auto) 1.81 K/uL Monocytes # (Auto) 0.91 K/uL Eosinophils # (Auto) 0.13 K/uL Basophils # (Auto) 0.02 K/uL RDW Standard Deviation 50.9 fL RDW Coefficient of Variation 15.2 % Immature Granulocyte % (Auto) 0.5 % Immature Granulocyte # (Auto) 0.07 K/uL Sodium Level 129 mmol/L Potassium Level 6.6 mmol/L Chloride Level 99 mmol/L Carbon Dioxide Level 19 mmol/L Anion Gap 10.0 mmol/L Blood Urea Nitrogen 66 mg/dl Creatinine 7.00 mg/dl Est Creatinine Clear Calc Drug Dose 18.9 ml/min Estimated GFR () 10.0 Estimated GFR (Non- 8.6 BUN/Creatinine Ratio 9.5 Random Glucose 93 mg/dl Calcium Level 8.2 mg/dl Total Bilirubin 0.3 mg/dl Direct Bilirubin 0.1 mg/dl Aspartate Amino Transf (AST/SGOT) 17 U/L Alanine Aminotransferase (ALT/SGPT) 24 U/L Alkaline Phosphatase 66 U/L Troponin I < 0.015 ng/ml Pro-B-Type Natriuretic Peptide 4492 pg/ml Total Protein 8.4 gm/dl Albumin 3.6 gm/dl Procalcitonin 0.26 ng/ml Bedside Lactic Acid Venous 2.22 mmol/L Venous Blood pH 7.19 Venous Blood Partial Pressure CO2 59 mmHg Venous Blood Partial Pressure O2 38 mmHg Venous Blood HCO3 22 mmol/L Venous Blood Oxygen Saturation < 60.0 % Venous Blood Base Excess -7.1 mEq/L Test 11/20/16 18:25 11/20/16 19:05 11/20/16 19:49 11/20/16 20:02 Blood Gas Sample Site L Radial Bedside Blood Gas pH (LAB) 7.26 Bedside Blood Gas pCO2 (LAB) 36 mmHg Bedside Blood Gas pO2 (LAB) 135 mmHg Bedside Blood Gas HCO3 (LAB) 16 meq/L Bedside Blood Gas Total CO2 17 mEq/l Bedside Blood Gas Base Excess (LAB) -11.0 meq/L Bedside Blood Gas O2 Saturation 99.0 % Crispin Test Pass Oxygen Delivery Device BIPAP Bedside Oxygen Rate (breaths/min) 12 Bedside FiO2 40 % Blood Gas IPAP [address] HEAD WITHOUT CONTRAST (CT) CLINICAL HISTORY: Acute change in mental status COMPARISON STUDY: No previous studies for comparison. TECHNIQUE: Axial CT of the brain is performed from the vertex to the skull base. IV contrast was not administered for this examination. A dose lowering technique was utilized adhering to the principles of ALARA. CT DOSE: 1035.81 mGycm FINDINGS: No intra or extra-axial mass lesions are visualized. There is no CT evidence of acute cortical infarction. There is no evidence of midline shift. There is no acute hemorrhage. No calvarial fractures are visualized. There is no evidence of pathologic ventricular dilatation. There is no evidence of acute sinusitis IMPRESSION: No acute intracranial findings Electronically signed by: Immanuel Taylor M.D. 11/20/2016 8:43 PM Dictated Date/Time: 11/20/2016 8:42 PM CHEST ONE VIEW PORTABLE CLINICAL HISTORY: respiratory failure COMPARISON STUDY: 11/20/2016 FINDINGS: The examination is limited from a technical standpoint secondary to the patient's very large body habitus. This tracheal tube is been placed which is 32 mm above the florencio. A nasogastric tube is also been placed which appears to extend to the stomach. The heart is enlarged. There is mediastinal widening. There are right basilar airspace opacities.[ IMPRESSION: 1. Technically limited study secondary to patient's large body habitus 2. Endotracheal tube 32 mm above the florencio 3. Right basilar airspace opacities, atelectatic versus inflammatory 4. Faint visualization of a nasogastric tube which appears to extend to the stomach 5. Stable cardiomegaly and mediastinal widening Electronically signed by: Immanuel Taylor M.D. 11/20/2016 9:29 PM Dictated Date/Time: 11/20/2016 9:27 PM CHEST ONE VIEW PORTABLE CLINICAL HISTORY: Shortness of breath COMPARISON STUDY: 06/22/2010 FINDINGS: The study is significantly limited secondary to the patient's body habitus. The heart is enlarged. There is mediastinal widening, possibly secondary to mediastinal fat deposition. There are hazy bibasilar opacities. While likely relating to overlying soft tissue, a right basal airspace opacity cannot be excluded. A PA and lateral study is recommended in follow-up.[ IMPRESSION: 1. Technically limited study 2. Mild cardiomegaly 3. Mediastinal widening, possibly secondary to fat deposition 4. Right basal airspace opacity versus overlying chest wall tissues. A PA and lateral study should be considered in follow-up. Electronically signed by: Immanuel Taylor M.D. 11/20/2016 5:07 PM Dictated Date/Time: 11/20/2016 5:05 PM Assessment & Plan PLAN: Fluids/Renal: * Hyperkalemia worsening after treatment in ED: 6.6 to 7.5 * Dr. Gonzalez spoke with Dr. Barrientos: will begin Emergent HD * Dr. Gonzalez and Reyes Awad. PA-C to insert HD Temporary Catheter * Medically treat: CaCl 1g, Insulin 10units/hour, D10 @ 75mL/hr, BiCarb 2Amps, Duoneb * Repeat labs 1hr s/p completion of HD * NOEMY: Cr 7.1, Monitor closely * Avoid Nephrotoxic agents * CrCl improving 12.3 * Castañeda Catheter in place; >500cc out over 6hrs * Strict I&O's * Dr. Barrientos following; appreciate input Neuro: * Altered Mental Status progressing to unresponsive * Intubated and Sedated on Versed * CT Head without acute findings * Consider Neuro consult if no improvement * Obtain Ammonia Level * Monitor for unilateral changes Resp: * Intubated in ICU with Glydescope 10/10; 8.0 ET AC/CMV 16/550/8/60% * (ABG prior to intubation on BiPap: 7.260/36.3/135/16.3) Serial ABGs * Wean FIO2 as tolerated * CXR & ABG in AM * Solu-medrol 125mg q8h * Monitor on telemetry * Continue Respiratory Regimen: Albuterol/Ipratropium q 6h CV: * Hypotensive intermittently: Levophed ordered for HD now * GOAL Map >65 * NSR noted on telemetry, continue to monitor * Pro BNP elevated, Troponin negative x 2 * Stress dose steroids provided * ECHO pending tomorrow ID: * Temp 36.6, WBC 15.06 * Lactic Acid: 1.3 * Continue Broad-Spectrum antibiotics at this time: * Cipro, Azithromycin, Vanco, and Zosyn * Blood and Urine Culture Pending * Procalcitonin Negative * Infectious Disease Consulted GI/Nutrition: * NPO currently * Consider tube feeds in 24-72 hours * Albumin & LFTs WNL * Trend daily * Stress Ulcer Prophylaxis: Protonix 40mg IV push daily Heme: * No gross sign of bleeding, monitor for changes * DVT Prophylaxis: Heparin 5k Units BID * Secondary to skin issues and open wounds, will hold SCDs Endocrine: * Accu-Checks per protocol, started insulin infusion for 2 blood sugars greater than 180 * Know DM diagnosis, controlled without insulin * Insulin at 10u/hr & D10 @ 75mL/hr; Monitor glucose closely Access: Right HD Temp Cath, Left IJ Triple Lumen, Left Arterial Line CCT: 60 Minutes; This time is exclusive of all separately billable procedures. Thank you for involving us in the care of this patient. Please refer to Dr. Jesse Gonzalez's addendum for further recommendations. I have personally evaluated and examined this patient. I agree with assessment and plan of Gissell Gonzalez PA-C. I personally saw the patient in the emergency department initially on 2016. Patient had worsening mental status and became acutely encephalopathic requiring intubation.
--- NOTE | 2016-11-20 20:44 | DIAGNOSTIC IMAGING REPORT ---
CT HEAD WITHOUT CONTRAST (CT) CLINICAL HISTORY: Acute change in mental status COMPARISON STUDY: No previous studies for comparison. TECHNIQUE: Axial CT of the brain is performed from the vertex to the skull base. IV contrast was not administered for this examination. A dose lowering technique was utilized adhering to the principles of ALARA. CT DOSE: 1035.81 mGycm FINDINGS: No intra or extra-axial mass lesions are visualized. There is no CT evidence of acute cortical infarction. There is no evidence of midline shift. There is no acute hemorrhage. No calvarial fractures are visualized. There is no evidence of pathologic ventricular dilatation. There is no evidence of acute sinusitis IMPRESSION: No acute intracranial findings Electronically signed by: Immanuel Taylor M.D. 11/20/2016 8:43 PM Dictated Date/Time: 11/20/2016 8:42 PM
--- NOTE | 2016-11-20 20:45 | Procedure Note ---
Procedure Note Procedure Date Nov 20, 2016. Procedure Description Description: Procedure Date: 11/20/2016 Procedure: Endotracheal intubation Pre-procedure Diagnosis: Altered Mental Status, Respiratory Insufficiency Post-procedure Diagnosis: same as above Prior to Procedure: Informed Consent: Emergent Attending: Staff: Viridiana Gonzalez DO Procedure Performed by: Zohra Gonzalez PA-C Indications: Respiratory Insufficiency The identity of the patient was confirmed and a bedside time out was performed. Description of Procedure: Patient was evaluated and required intubation for respiratory failure. The patient was prepared in the usual fashion, a significant ramp was placed behind pts back to place the tragus at the level of the sternal notch. A MAC 3 via Glyde scope was used. An 8 Fr endotracheal tube was placed endotracheally with a Grade 1 view under fiberoptic view to 28 cm at the teeth. The endotracheal tube was noted to pass through the vocal cords. Chest rise was bilateral. Bilateral breath sounds were heard without air sounds in the abdomen. Mist was noted in the endotracheal tube. End-tidal CO2 measurement was positive. Chest x- ray shows proper endotracheal tube placement. Complications: None Findings: not applicable Specimens: not applicable Estimated blood loss: Zero
[2016-11-20] MEDS: INSULIN ASPART 100 UNITS/ML 3 ML PEN SC SCH (21:00)
[2016-11-20] MEDS ORDERED: LEVALBUTEROL 1.25MG/0.5ML NEB INH SCH (21:00)
[2016-11-20] MEDS ORDERED: IPRATROPIUM BROMIDE NEB SOLN 0.02% 2.5 ML VIAL INH SCH (21:00)
[2016-11-20] MEDS ORDERED: LEVALBUTEROL/IPRATROPIUM NEB INH SCH (21:00)
[2016-11-20] MEDS: PANTOprazole INJ 40 MG in SYRINGE 0 ML IV SCH (21:01)
[2016-11-20] MEDS: SODIUM CHLORIDE 0.9% 1000ML 1,000 ML IV SCH (21:04)
--- NOTE | 2016-11-20 21:31 | DIAGNOSTIC IMAGING REPORT ---
CHEST ONE VIEW PORTABLE CLINICAL HISTORY: respiratory failure COMPARISON STUDY: 11/20/2016 FINDINGS: The examination is limited from a technical standpoint secondary to the patient's very large body habitus. This tracheal tube is been placed which is 32 mm above the florencio. A nasogastric tube is also been placed which appears to extend to the stomach. The heart is enlarged. There is mediastinal widening. There are right basilar airspace opacities.[ IMPRESSION: 1. Technically limited study secondary to patient's large body habitus 2. Endotracheal tube 32 mm above the florencio 3. Right basilar airspace opacities, atelectatic versus inflammatory 4. Faint visualization of a nasogastric tube which appears to extend to the stomach 5. Stable cardiomegaly and mediastinal widening Electronically signed by: Immanuel Taylor M.D. 11/20/2016 9:29 PM Dictated Date/Time: 11/20/2016 9:27 PM
[2016-11-20 21:48] LABS: MAGNESIUM 2.9 mg/dl (1.8-2.4)
[2016-11-20 21:52] LABS: CKMB/CK RATIO 1.4 (0-3.0)
[2016-11-20 21:58] LABS: ALB/GLOB RATIO 0.7 (0.9-2); CALCIUM 8.1 mg/dl (8.5-10.1)
[2016-11-20 22:02] LABS: CREATININE 7.1 mg/dl (0.60-1.40); POTASSIUM 7.5 mmol/L (3.5-5.1)
[2016-11-20] MEDS ORDERED: INSULIN HUMAN REGULAR PER UNIT 10 UNITS in SYRINGE 0 ML IV STA (22:09)
[2016-11-20] MEDS ORDERED: ALBUTEROL 0.083% NEBU SOLN 3 ML VIAL INH STA (22:09)
[2016-11-20] MEDS ORDERED: ALBUMIN HUMAN 25% 12.5 GM/50 ML VIAL IV STA (22:12)
[2016-11-20] MEDS ORDERED: SODIUM BICARB 8.4% INJ 50 MEQ/50 ML SYR IV STA (22:14)
[2016-11-20] MEDS ORDERED: CALCIUM CHLORIDE 10% 10 ML SYR IV STA (22:14)
[2016-11-20] MEDS ORDERED: HEPARIN SOD (PORCINE) 1000 UNIT/ML 10 ML VIAL IV SCH (22:15)
[2016-11-20] MEDS ORDERED: DEXTROSE 10% 1,000 ML IV SCH (22:15)
--- NOTE | 2016-11-20 22:17 | Procedure Note ---
Procedure Note Procedure Date Nov 20, 2016. (Reyes Awad PA-C) I was present and assisted during the entire procedure. (Jesse Gonzalez, D.O.) Procedure Description Procedure Name: LEFT Radial Arterial Line Procedure time out: side/site verified, patient ID confirmed, correct procedure Consent obtained: written, emergent consent implied Time of procedure: 22:00 Performed by: physician library associate Indications: diagnostic, therapeutic Contraindications: none Description: Procedure: Arterial Line Placement Attending: Dr. Gonzalez APC: Reyes Awad PA-C Indication: Monitoring on Pressors Anesthesia: None/Lidocaine 1% A time-out was completed verifying correct patient, procedure, site, positioning , and implant(s) or special equipment if applicable. Allens test was performed to ensure adequate perfusion. Patients LEFT wrist was prepped and draped in the usual sterile fashion. Ultrasound guidance was used to aid needle placement. A 20g Arrow arterial line was introduced into the LEFT Radial artery. Catheter was threaded, and the needle was removed with appropriate blood return. Good waveform was observed. The patient tolerated the procedure well. Confirmation of placement with ultrasound. Images saved to medical record. Blood Loss: Minimal Complications: None Procedural Ultrasound Guidance: Procedure Date: 11/20/2016 Indication: Hemodynamic Monitoring, Serial ABGs Attending: Dr. Gonzalez APC: Reyes Awad PA-C Artery Identified: YES Line confirmed in Artery with ultrasound: YES Complications: NONE Patient tolerated procedure: WELL Complications: none Patient tolerated procedure: well Post-procedure vital signs: reviewed and stable (Reyes Awad PA-C)
--- NOTE | 2016-11-20 22:21 | Pharmacy Progress Note ---
Pharmacy Abx Initial Consult Date of Service Nov 20, 2016. Pharmacy Dosing Scope Date of Consult: 11/20/16 Consultation requested by: Calvin Arrieta Pharmacy is consulted to initiate Vanc, Zosyn and Cipro IV dosing therapy, order appropriate labs and adjust drug dose/frequency. Subjective The patient is a 46 year old male admitted on Nov 20, 2016 at 17:46. Objective Height (Feet): 5 Height (Inches): 8.00 Weight (Kilograms): 172.000 Vital Signs (Past 12Hrs) Vital Signs Past 12 Hours Date Time Temp Pulse Resp B/P (MAP) Pulse Ox O2 Delivery O2 Flow Rate FiO2 11/20/16 21:25 36.4 98 24 106/62 95 BiPAP 40 11/20/16 20:15 80 11/20/16 19:16 93 98 40 11/20/16 19:01 89/61 11/20/16 18:57 94 21 87/36 93 Room Air 11/20/16 18:14 90 24 113/70 94 BiPAP 11/20/16 16:53 96 26 106/62 93 BiPAP 11/20/16 16:53 100 93 4.0 11/20/16 16:18 88 24 91 Nasal Cannula 2.0 11/20/16 15:16 100 11/20/16 14:59 91 Nasal Cannula 4.0 11/20/16 14:59 91 Nasal Cannula 4.0 11/20/16 14:51 36.5 109 22 146/73 87 Room Air Lab Results (24Hrs) Laboratory Tests (24 Hours) Test 11/20/16 15:40 11/20/16 21:13 White Blood Count 15.06 K/uL (4.8-10.8) H Red Blood Count 4.38 M/uL (4.7-6.1) L Hemoglobin 13.6 g/dL (14.0-18.0) L Hematocrit 40.3 % (42-52) L Mean Corpuscular Volume 92.0 fL (80-100) Mean Corpuscular Hemoglobin 31.1 pg (25-34) Mean Corpuscular Hemoglobin Concent 33.7 g/dl (32-36) Platelet Count 272 K/uL (130-400) Mean Platelet Volume 9.9 fL (7.4-10.4) Neutrophils (%) (Auto) 80.5 % Lymphocytes (%) (Auto) 12.0 % Monocytes (%) (Auto) 6.0 % Eosinophils (%) (Auto) 0.9 % Basophils (%) (Auto) 0.1 % Neutrophils # (Auto) 12.12 K/uL (1.4-6.5) H Lymphocytes # (Auto) 1.81 K/uL (1.2-3.4) Monocytes # (Auto) 0.91 K/uL (0.11-0.59) H Eosinophils # (Auto) 0.13 K/uL (0-0.5) Basophils # (Auto) 0.02 K/uL (0-0.2) Procalcitonin 0.26 ng/ml (0-0.5) Lactic Acid Level 1.3 mmol/L (0.4-2.0) Total Creatine Kinase 218 U/L (39-308) Micro Results Date/Time Source Procedure Growth Status 11/20/16 16:40 Blood Blood Culture Pending Received 11/20/16 15:40 Blood Blood Culture Pending Received 11/20/16 19:21 Nasal MRSA DNA Surveillance Screen - Final Specimen Negative for MRSA by DNA Probe Complete Assessment & Plan Assessment 46 year old male ordered empiric antibiotics for treatment of sepsis, pulmonary source Plan Vancomycin IV * 2750 mg (19 mg/kg) IV x 1 dose * Goal trough level for sepsis/pnx : 15 to 20 mcg/mL * Further dosing will be based on random level due to NOEMY * Random level ordered for 11/21/16 Piperacillin/tazobactam * 4.5 g bolus administered over 30 minutes, then 4.5 g IV extended infusion every 12 hours for CrCl 20 mL/min or less and dialysis. * Aggressive dosing selected due to critically ill status/BMI 35 or more/ history of cystic fibrosis. Cipro * Dose of 400 mg IV q12h reduced to q24h for CrCl 5-29 ml/min Pharmacy will continue to follow and will adjust dose/frequency as necessary. Thank you.
[2016-11-20] MEDS ORDERED: CALCIUM CHLORIDE 10% 10 ML SYR ONE (22:22)
[2016-11-20 22:23] LABS: PHOSPHORUS 9.7 mg/dl (2.5-4.9)
[2016-11-20] MEDS ORDERED: NOREPINEPHRINE BIT INJ 8 MG in DEXTROSE 5% 500ML 500 ML IV PRN (22:44)
[2016-11-20] MEDS ORDERED: CIPROFLOXACIN 400MG / D5W IV SCH (23:00)
--- NOTE | 2016-11-20 23:21 | Procedure Note ---
Procedure Note Procedure Date Nov 20, 2016. (Reyes Awad PA-C) I was present and assisted during the entire procedure. (Jesse Gonzalez, D.O.) Central Line Procedure time out: side/site verified, patient ID confirmed, sterile procedure used Consent obtained: written, emergent consent implied Time of procedure: 22:45 Performed by: attending, physician solid waste facility supervisor Indications: poor venous access, long-term access Prep: chlorhexadine prep, sterile drape, sterile procedures used Anesthesia: lidocaine 1% without epi Volume anesthetic (ml's): 5 Central line lumen: double Central line location: other (RIGHT IJ Temporary HD Catheter) Additional details: percutaneous placement, ultrasound guidance, Selinger technique used, line sutured, good blood return CXR: appropriate position Complications: none Patient tolerated procedure: well Post-procedure vital signs: reviewed and stable Comments: Point of Care Bedside Ultrasound Procedure: Procedural Ultrasound Procedure Date: 11/20/2016 Indication: Emergent Hemodialysis Attending: Viridiana Gonzalez DO Resident/Physician Ticket Marker: Reyes Awad PA-C If for central venous access Artery AND Vein visualized: YES Compressible Vein: YES Guidewire or Short Catheter seen in vein prior to dilation: YES Line confirmed in Vein with ultrasound: YES If no lung sliding or not obtained has CXR been ordered: YES Images obtained are saved for permanent record (Reyes Awad PA-C)
--- NOTE | 2016-11-20 23:22 | Procedure Note ---
Procedure Note Procedure Date Nov 20, 2016. (Reyes Awad PA-C) I was present and assisted during the entire procedure. (Jesse Gonzalez, D.O.) Central Line Procedure time out: side/site verified, patient ID confirmed, sterile procedure used Consent obtained: written, emergent consent implied Time of procedure: 23:00 Performed by: physician senior painter Indications: poor venous access, central drug admin., long-term access Prep: chlorhexadine prep, sterile drape, sterile procedures used Anesthesia: lidocaine 1% without epi Volume anesthetic (ml's): 5 Central line lumen: triple Central line location: internal jugular (L) Additional details: percutaneous placement, ultrasound guidance, Selinger technique used, line sutured, good blood return CXR: appropriate position Complications: none Patient tolerated procedure: well Post-procedure vital signs: reviewed and stable Comments: Point of Care Bedside Ultrasound Procedure: Procedural Ultrasound Procedure Date: 11/20/2016 Indication: Central Drug Administration, Poor Venous Access Attending: Viridiana Gonzalez DO Resident/Physician Access Service Representative: Reyes Awad PA-C If for central venous access Artery AND Vein visualized: YES Compressible Vein: YES Guidewire or Short Catheter seen in vein prior to dilation: YES Line confirmed in Vein with ultrasound: YES If no lung sliding or not obtained has CXR been ordered: YES Images obtained are saved for permanent record (Reyes Awad PA-C)
[2016-11-20 23:25] LABS: HEPATITIS B AB NEG
[2016-11-20] MEDS ORDERED: INSULIN REGULAR 250 UNITS in SODIUM CHLORIDE 0.9% 250ML 250 ML IV SCH (23:30)
[2016-11-20 23:36] LABS: MANUAL MICROSCOPIC REQUIRED? YES; REVIEW REQ? NO; URINE APPEARANCE CLOUDY (CLEAR); URINE BILIRUBIN NEG (NEG); URINE COLOR YELLOW; URINE NITRITE NEG (NEG); URINE SPECIFIC GRAVITY >= 1.030 (1.000-1.030); UROBILINOGEN NEG (NEG)
[2016-11-21] VITALS (28 sets, daily range): BP systolic 103–174; BP diastolic 50–87; PULSE 71–103; TEMP 36.6–37.4; O2SAT 92–100; Ht 172.7 cm; Wt 168.8 kg
[2016-11-21] MEDS ORDERED: IPRATROPIUM BROMIDE HFA INHALER INH SCH
[2016-11-21] MEDS ORDERED: ALBUTEROL HFA 8 GM INHALER INH SCH
[2016-11-21 00:05] LABS: URINE RBC >30 /hpf (0-4)
[2016-11-21 00:14] LABS: URINE BACTERIA NEG (NEG)
[2016-11-21] MEDS: HEPARIN SOD (PORCINE) 1000 UNIT/ML 10 ML VIAL IV SCH (00:15)
[2016-11-21 01:19] LABS: ISTAT ARTERIAL BLOOD GAS HCO3 24 meq/L (19-24); ISTAT ARTERIAL BLOOD GAS PCO2 52 mmHg (35-46); ISTAT ARTERIAL BLOOD GAS PO2 96 mmHg (80-95); ISTAT ARTERIAL BLOOD GAS pH 7.27 (7.35-7.45); ISTAT CARBON DIOXIDE 25 mEq/l (24-31); ISTAT HEMATOCRIT 39 % (42-52); ISTAT HEMOGLOBIN 13.3 g/dl (14.0-18.0); ISTAT SODIUM 136 mEq/L (135-144)
[2016-11-21 01:26] LABS: BUN/CREATININE RATIO 11.3 (10-20); CALCIUM 8.4 mg/dl (8.5-10.1); CREATININE 5.2 mg/dl (0.60-1.40); MAGNESIUM 2.5 mg/dl (1.8-2.4); PHOSPHORUS 6.6 mg/dl (2.5-4.9); POTASSIUM 5.9 mmol/L (3.5-5.1)
[2016-11-21] MEDS ORDERED: METHYLPREDNISOLONE IV 125 MG in SYRINGE 0 ML IV SCH (02:00)
[2016-11-21] MEDS ORDERED: PIPERACILL/TAZOBAC IV 4.5 GM in DEXTROSE 5% 100ML IV SCH ×2 (02:00→10:00)
[2016-11-21] MEDS: ALBUTEROL HFA 8 GM INHALER INH SCH ×2 (02:18→07:25)
[2016-11-21] MEDS: IPRATROPIUM BROMIDE HFA INHALER INH SCH ×2 (02:19→07:25)
[2016-11-21 02:20] LABS: ISTAT ARTERIAL BLOOD GAS HCO3 25 meq/L (19-24); ISTAT ARTERIAL BLOOD GAS PCO2 53 mmHg (35-46); ISTAT ARTERIAL BLOOD GAS PO2 93 mmHg (80-95); ISTAT ARTERIAL BLOOD GAS pH 7.29 (7.35-7.45); ISTAT CARBON DIOXIDE 27 mEq/l (24-31); ISTAT HEMATOCRIT 39 % (42-52); ISTAT HEMOGLOBIN 13.3 g/dl (14.0-18.0); ISTAT SODIUM 137 mEq/L (135-144)
[2016-11-21] MEDS ORDERED: INFLUENZA VIRUS QUAD VACCINE 0.5 ML SYR IM. ONE (02:30)
[2016-11-21] MEDS ORDERED: INFLUENZA ADMINISTRATION CHARGE ONE (02:30)
[2016-11-21] MEDS ORDERED: PNEUMOCOCCAL POLYSACCHARIDES 25 MCG/0.5 ML VIAL/SYR IM. ONE (02:30)
[2016-11-21] MEDS ORDERED: PNEUMOCOCCAL ADMINISTRATION CHARGE ONE (02:30)
[2016-11-21 04:13] LABS: VEN BLD GAS O2 SATURATION 97.9 %; VEN BLOOD GAS BASE EXCESS -4.3 mEq/L
[2016-11-21 04:15] LABS: COMPLETE YES; HEMATOCRIT 33.4 % (42-52); IG% 0.4 %; LYMPH % 8.1 %; LYMPH ABS # 0.83 K/uL (1.2-3.4); MEAN CELL VOLUME 91.3 fL (80-100); MEAN CORPUSCULAR HEMOGLOBIN 30.6 pg (25-34); MEAN CORPUSCULAR HGB CONC 33.5 g/dl (32-36); MEAN PLATELET VOLUME 9.8 fL (7.4-10.4); MONO % 3.8 %; NEUT % 87.7 %; PLATELET COUNT 195 K/uL (130-400); RED BLOOD COUNT 3.66 M/uL (4.7-6.1)
[2016-11-21 04:23] LABS: INR 1.1 (0.9-1.1); PROTHROMBIN TIME (PATIENT) 11.4 SECONDS (9.0-12.0)
[2016-11-21 04:44] LABS: BLOOD UREA NITROGEN 39 mg/dl (7-18); CARBON DIOXIDE 23 mmol/L (21-32); CHLORIDE 106 mmol/L (98-107); GLUCOSE 146 mg/dl (70-99); MAGNESIUM 2.2 mg/dl (1.8-2.4); SODIUM 137 mmol/L (136-145)
[2016-11-21 04:49] LABS: CKMB/CK RATIO 1.4 (0-3.0)
[2016-11-21 05:28] LABS: CALCIUM 7.1 mg/dl (8.5-10.1)
--- NOTE | 2016-11-21 07:16 | DIAGNOSTIC IMAGING REPORT ---
BILATERAL LOWER EXTREMITY VENOUS DOPPLER HISTORY: Leg weakness. COMPARISON STUDY: None. FINDINGS: There is normal compressibility, flow, and augmentation within the bilateral lower extremity deep venous systems. Bilateral greater saphenous veins are not identified and may be due to prior vein stripping IMPRESSION: No DVT within the right or left lower extremity. Electronically signed by: Arnaud Aguilera M.D. 11/21/2016 7:15 AM Dictated Date/Time: 11/21/2016 7:15 AM
--- NOTE | 2016-11-21 07:18 | Critical Care Progress Note ---
Critical Care Progress Note Date of Service Nov 21, 2016. ICU Day ICU Day Number: [address] Gonzalez Subjective The patient was seen and examined at bedside. Pt is intubated and sedated. Pt received emergent dialysis yesterday evening. Pt does not respond to sternal rub. Pt is restrained. Urine output was 1200mLs overnight. * Pt was extubated around 1330 today, is now on 5-6L via face mask. Pt is intermittently confused as to where he is and states he is tired. No signs of acute distress. ROS: No chest pain, no SOB, no dyspnea on exertion, no palpitations, no fevers, no chills, no nausea, no vomiting, no diarrhea, no dysuria, no rash. +fatigue Objective Gen: No acute distress. Intubated and sedated. Likely extubation today. Restraints in place. Pt is slightly arousable in the AM - was arousing to echocardiogram but not on my exam which was prior to echo. Pt is morbidly obese. HEENT: Head - normocephalic and atraumatic. Pupils are equal, round, and reactive to light. Extraocular eye muscles are intact and sclera are anicteric. Ears - bilaterally patent canals with noninjected tympanic membranes and no evidence of hemotympanum. Nose - moist nasal mucosa without discharge. Mouth - moist buccal mucosa. Oropharynx is nonerythematous and there is no tonsillar exudate or edema noted. Neck: Supple; no JVD, nuchal rigidity, cervical lymphadenopathy, or auscultated bruits. Heart: Regular rate and rhythm. There is a normal S1 and S2 with no murmurs, clicks, or gallops appreciated. Lungs: Clear to auscultation bilaterally with no wheezes, rales, or rhonchi. Decreased breath sounds in all lung romo. Abdomen: Soft, completely nontender, nondistended, with good bowel sounds. There are no palpable pulsatile masses or hepatosplenomegaly. There is no guarding, rigidity, or rebound noted. Extremities: No evidence of cyanosis, clubbing, or edema. There are easily palpable peripheral pulses. Neuro: In the Afternoon after extubation pt was awake and alert but only oriented to person and not time or place. Muscle strength is 5/5 in all 4 extremities but he has poor fine motor control. The patient has equal television engineer strength and equal pedal push and pull. There are no cerebellar signs. Current SOFA Score SOFA Score Response (Comments) Value Platelets (x10) > 150 0 Bilirubin (mg/dL) < 1.2 0 [place] Coma Score 13 - 14 1 Level of Hypotension No Hypotension 0 Creatinine (mg/dL) 2.0 - 3.4 2 Total 3 Assessment & Plan 46M with a PMHx of smoking 23pk year history, DM2 (metformin), HTN, HLD, Anxiety p/w SOB and AMS (per coworkers). Pt was conversing in the ER. Pt was found to have an elevated potassium level (6.5). Repeat K+ was 7.5 and the pt received emergent dialysis. Mental and respiratory status deteriorated and the patient was intubated overnight 11/20/16. Pt was extubated approximately 1330 today. Continued treatment for COPD exacerbation and close monitoring of electrolytes/renal function. Fluids/Renal: * K+ in ED was 6.6 and increased to 7.5. Pt required emergent HD on 11/20/16 * Today K+ is still trending upwards (4.0-->4.7) * Will repeat BMP at 6pm, may need addition HD if K+ doesn't correct. * M.2, Phosphate 4-->5.2 * Na+ 137-->134 * NOEMY: Creatinine this AM was 3.3-->3.1 * Avoid Nephrotoxic agents * Castañeda Catheter in place; excellent urine output, >100mls/hr. * Dr. Barrientos following. * IVF NSS at 80mls/hr. Neuro: * Pt is Extubated yet is still confused, his encephalopathy in light of a normal procal, no fevers and normal WBC is most certainly metabolic. Aside from the obvious electrolyte abnormalities from renal function the patient was also found to have an elevated ammonia level that could be playing a part. Pt has a 23pack year smoking history yet on admission his ABG was not consistent with hypercarbic encephalopathy. * CT Head without acute findings * Consider Neuro consult if no improvement * Will trend ammonia level. * Monitor for unilateral changes * Mood: Pt was on Wellbutrin 75mg daily at home, will continue to hold due to AMS. * Chronic Pain: Pt is on Neurontin 100mg TID at home, pt is not complaining of any pain. Will continue to hold. Resp: * Currently on 6LNC via Facemask. * ABG in the AM showed metabolic acidosis pH of 7.29, PCO2 of 52 and PO2 of 100. * Will decrease Solu-medrol to 60mg q8h * Albuterol/Ipratropium nebulizers q 6h CV: * NSR noted on telemetry, continue to monitor * Pro BNP elevated, Troponin negative x 2 * Stress dose steroids provided * ECHO results pending. * CAD: Will hold ASA - do not want to further damage kidney. * HLD: Will hold Lipitor in light of elevated ammonia. * HTN: Pt has an A. Line in place, normotensive. ID: * Temp 36.6, WBC 15.06-->10.2, on steroids. * Lactic Acid: 1.3 * Procalcintonin negative. * Blood Cultures Pending. * ID (Dr. French): does not believe the encephalopathy is from an infectious source, no Abx recommended although empiric treatment pending culture results would be reasonable. * Holding all Abx GI/Nutrition: * Extubated, pt states he is hungry. * Albumin & LFTs WNL * Ammonia was 45-->38 * Stress Ulcer Prophylaxis: Protonix 40mg IV push daily * Ordered Low Potassium DM2 Diet. Heme: * No gross sign of bleeding, monitor for changes * DVT Prophylaxis: Heparin 7500 Units SQ TID * Secondary to skin issues and open wounds, will hold SCDs Endocrine: * HBA1C was 6.6 * Diabetic education was given. * ISS + carb coverage. FULL CODE Resident Physician Supervision Note: Dr. Junior was resident physician during care of patient. I separately evaluated patient and did history and exam. I discussed the case with the resident and generally agree with the findings and plan. Patient was able to be successfully extubated later this afternoon. I have stopped all antibiotics this time. I discussed the case with radiology regarding the widened mediastinum, acute renal failure, acute respiratory failure. At this time we will stick the patient for a noncontrast scan of the chest abdomen pelvis. If he is found to have aortic dilatation that will followed up with a contrasted scan.ct chest. We reviewed his CT scan from 2010 which did not demonstrate dilatation of the aorta. If the caliber of the aorta is normal it would highly be unlikely to be related to a aortic dissection, widened mediastinum is likely secondary to mediastinal fatty tissue. Patient is a smoker, does have some CO2 retention. CT scans would further elucidate any scarring of the lung parenchyma, patient is certainly at risk for obesity- related hypoventilation syndrome. I have personally spent 60 minutes of critical care time in the direct management of this patient. This is a life/limb threatening event. This includes time spent evaluating patient, direct bedside care, chart review, placing orders, interpretation of diagnostic studies, discussion with consultants, patient, and family members, as well as other required patient management activities. This time is exclusive of all separately billable procedures, and teaching time and separate from and in addition to any other critical care service time. Documented By: Jesse Gonzalez DO Consults & Procedures Consultants: Infectious Disease - Dr. French Nephrology - Dr. Barrientos Conciliator Procedures: Intubation - 11/20/16 Extubation - 11/21/16 Right HD Temp Cath Left IJ Triple Lumen Left Arterial Line Data Medications: Current Inpatient Medications Medications (Trade) Dose Ordered Sig/Marcell Route Start Time Stop Time Status Last Admin Dose Admin Ondansetron HCl (Zofran Inj) 4 mg Q6H PRN IV 11/20/16 18:15 12/20/16 18:14 Methylprednisolone Sodium Succinate 125 mg/Syringe 2 ml @ 1.5 mls/min Q8H IV 11/21/16 02:00 12/21/16 01:59 11/21/16 02:28 1.5 MLS/MIN Insulin Aspart (novoLOG ASPART) SLIDING SCALE If C... ACHS SC 11/20/16 21:00 12/20/16 20:59 Glucose (Glucose 40% Gel) 15-30 GRAMS 15 GRAMS... UD PRN PO 11/20/16 18:45 12/20/16 18:44 Glucose (Glucose Chew Tab) 4-8 Tablets 4 Tabl... UD PRN PO 11/20/16 18:45 12/20/16 18:44 Dextrose (Dextrose 50% 50ML Syringe) 25-50ML OF 50% DW IV FOR... UD PRN IV 11/20/16 18:45 12/20/16 18:44 Glucagon (Glucagon Inj) 1 mg UD PRN SQ 11/20/16 18:45 12/20/16 18:44 Vancomycin HCl (Consult) 1 ea UD PRN N/A 11/20/16 19:45 12/20/16 19:44 Piperacillin Sod/ Tazobactam Sod (Consult) 1 ea UD PRN N/A 11/20/16 19:45 12/20/16 19:44 Ciprofloxacin (Consult) 1 ea UD PRN N/A 11/20/16 19:45 12/20/16 19:44 Sodium Chloride 1,000 ml @ 80 mls/hr [id number] IV 11/20/16 20:00 12/20/16 19:59 11/20/16 21:04 80 MLS/HR Fentanyl Citrate (Fentanyl Inj) 100 mcg Q1H PRN IV 11/20/16 20:00 12/04/16 19:59 11/20/16 19:30 100 MCG Midazolam HCl 250 ml @ 0 mls/hr Q0M IV 11/20/16 19:48 12/20/16 19:47 11/20/16 21:03 8 MLS/HR Pantoprazole Sodium 40 mg/ Syringe 10 ml @ 5 mls/min DAILY@2000 IV 11/20/16 20:00 12/20/16 19:59 11/20/16 21:01 5 MLS/MIN Albuterol (Ventolin Hfa Inhaler) 4 puffs Q6R INH 11/21/16 03:00 12/21/16 00:00 11/21/16 02:18 4 PUFFS Ipratropium [place] (Atrovent Hfa Inhaler) 4 puffs Q6R INH 11/21/16 03:00 12/21/16 00:00 11/21/16 02:19 4 PUFFS Dextrose 1,000 ml @ 75 mls/hr [id number] IV 11/20/16 22:15 12/20/16 22:14 11/20/16 23:49 75 MLS/HR Ciprofloxacin/ Dextrose 400 mg/ Prmx 200 ml @ 100 mls/hr Q24H IV 11/20/16 23:00 11/27/16 22:59 11/21/16 00:02 100 MLS/HR Norepinephrine Bitartrate 8 mg/ Dextrose 508 ml @ 0 mls/hr Q0M PRN IV 11/20/16 22:44 12/20/16 22:43 11/20/16 23:07 32 MLS/HR Insulin Human Regular 250 units/ Sodium Chloride 252.5 ml @ 0 mls/hr DAILY@1130 IV 11/20/16 23:30 12/20/16 23:29 11/20/16 23:54 10 MLS/HR Heparin Sodium (Porcine) (Heparin Sq 5000 Unit/0.5ml) 5,000 unit Q12H SQ 11/21/16 09:00 12/21/16 08:59 Piperacillin Sod/ Tazobactam Sod 4.5 gm/Dextrose 120 ml @ 30 mls/hr Q8H IV 11/21/16 10:00 11/27/16 17:59 Vital Signs: Date Time Temp Pulse Resp B/P (MAP) Pulse Ox O2 Delivery O2 Flow Rate FiO2 11/21/16 06:00 72 18 123/72 (89) 97 Mechanical Ventilator 11/21/16 05:10 60 11/21/16 04:00 60 11/21/16 04:00 81 20 147/85 (105) 99 Mechanical Ventilator 60 11/21/16 04:00 100 60 11/21/16 03:00 79 18 142/86 (104) 99 Mechanical Ventilator 11/21/16 02:48 36.7 82 125/50 (75) 11/21/16 02:22 60 11/21/16 02:20 83 18 97 Mechanical Ventilator 60 11/21/16 02:00 82 120/52 11/21/16 02:00 82 18 135/77 (96) 97 60 11/21/16 01:45 84 114/50 11/21/16 01:30 84 134/55 11/21/16 01:15 81 149/64 11/21/16 01:04 87 19 103/60 (74) 97 Mechanical Ventilator 11/21/16 01:00 86 103/60 11/21/16 01:00 86 21 103/69 (80) 100 11/21/16 00:48 87 18 146/84 (104) 100 Mechanical Ventilator 11/21/16 00:45 85 174/71 11/21/16 00:30 82 171/67 11/21/16 00:30 84 17 169/70 (103) 100 11/21/16 00:15 81 158/64 11/21/16 00:00 36.6 78 18 141/60 (87) 100 Mechanical Ventilator 11/21/16 00:00 86 140/61 11/21/16 00:00 100 80 11/21/16 00:00 78 18 141/60 (87) 100 11/21/16 00:00 80 11/20/16 23:50 84 146/61 11/20/16 23:45 36.6 87 150/66 (94) 11/20/16 23:35 80 11/20/16 23:30 91 16 145/72 (96) 11/20/16 23:00 86 16 88/44 (59) 96 Mechanical Ventilator 11/20/16 22:42 80 16 85/31 (49) 95 11/20/16 22:30 100 20 116/39 (64) 96 Mechanical Ventilator 11/20/16 22:28 99 8 122/77 (92) 97 11/20/16 22:09 89 16 92 Mechanical Ventilator 11/20/16 22:00 95 12 94 Mechanical Ventilator 11/20/16 21:25 36.4 98 24 106/62 95 BiPAP 40 11/20/16 20:15 80 11/20/16 19:16 93 98 40 11/20/16 19:01 89/61 11/20/16 18:57 94 21 87/36 93 Room Air 11/20/16 18:14 90 24 113/70 94 BiPAP 11/20/16 16:53 96 26 106/62 93 BiPAP 11/20/16 16:53 100 93 4.0 11/20/16 16:18 88 24 91 Nasal Cannula 2.0 11/20/16 15:16 100 11/20/16 14:59 91 Nasal Cannula 4.0 11/20/16 14:59 91 Nasal Cannula 4.0 11/20/16 14:51 36.5 109 22 146/73 87 Room Air Laboratory Results: Last 24 Hours Test 11/20/16 15:40 11/20/16 15:44 11/20/16 16:40 11/20/16 17:51 White Blood Count 15.06 K/uL Red Blood Count 4.38 M/uL Hemoglobin 13.6 g/dL Hematocrit 40.3 % Mean Corpuscular Volume 92.0 fL Mean Corpuscular Hemoglobin 31.1 pg Mean Corpuscular Hemoglobin Concent 33.7 g/dl Platelet Count 272 K/uL Mean Platelet Volume 9.9 fL Neutrophils (%) (Auto) 80.5 % Lymphocytes (%) (Auto) 12.0 % Monocytes (%) (Auto) 6.0 % Eosinophils (%) (Auto) 0.9 % Basophils (%) (Auto) 0.1 % Neutrophils # (Auto) 12.12 K/uL Lymphocytes # (Auto) 1.81 K/uL Monocytes # (Auto) 0.91 K/uL Eosinophils # (Auto) 0.13 K/uL Basophils # (Auto) 0.02 K/uL RDW Standard Deviation 50.9 fL RDW Coefficient of Variation 15.2 % Immature Granulocyte % (Auto) 0.5 % Immature Granulocyte # (Auto) 0.07 K/uL Sodium Level 129 mmol/L Potassium Level 6.6 mmol/L Chloride Level 99 mmol/L Carbon Dioxide Level 19 mmol/L Anion Gap 10.0 mmol/L Blood Urea Nitrogen 66 mg/dl Creatinine 7.00 mg/dl Est Creatinine Clear Calc Drug Dose 18.9 ml/min Estimated GFR () 10.0 Estimated GFR (Non- 8.6 BUN/Creatinine Ratio 9.5 Random Glucose 93 mg/dl Calcium Level 8.2 mg/dl Total Bilirubin 0.3 mg/dl Direct Bilirubin 0.1 mg/dl Aspartate Amino Transf (AST/SGOT) 17 U/L Alanine Aminotransferase (ALT/SGPT) 24 U/L Alkaline Phosphatase 66 U/L Troponin I < 0.015 ng/ml Pro-B-Type Natriuretic Peptide 4492 pg/ml Total Protein 8.4 gm/dl Albumin 3.6 gm/dl Procalcitonin 0.26 ng/ml Hepatitis B Surface Antigen NEG Hepatitis B Surface Antibody NEG Bedside Lactic Acid Venous 2.22 mmol/L Venous Blood pH 7.19 Venous Blood Partial Pressure CO2 59 mmHg Venous Blood Partial Pressure O2 38 mmHg Venous Blood HCO3 22 mmol/L Venous Blood Oxygen Saturation < 60.0 % Venous Blood Base Excess -7.1 mEq/L Bedside Glucose 124 mg/dl Test 11/20/16 18:18 11/20/16 19:49 11/20/16 21:08 11/20/16 21:13 Bedside Glucose 240 mg/dl 156 mg/dl Blood Gas Sample Site L Radial Bedside Blood Gas pH (LAB) 7.26 Bedside Blood Gas pCO2 (LAB) 36 mmHg Bedside Blood Gas pO2 (LAB) 135 mmHg Bedside Blood Gas HCO3 (LAB) 16 meq/L Bedside Blood Gas Total CO2 17 mEq/l Bedside Blood Gas Base Excess (LAB) -11.0 meq/L Bedside Blood Gas O2 Saturation 99.0 % Crispin Test Pass Oxygen Delivery Device BIPAP Bedside Oxygen Rate (breaths/min) 12 Bedside FiO2 40 % Blood Gas IPAP 12 Sodium Level 127 mmol/L Potassium Level 7.5 mmol/L Chloride Level 100 mmol/L Carbon Dioxide Level 19 mmol/L Anion Gap 8.0 mmol/L Blood Urea Nitrogen 71 mg/dl Creatinine 7.10 mg/dl Est Creatinine Clear Calc Drug Dose 20.4 ml/min Estimated GFR () 9.8 Estimated GFR (Non- 8.5 BUN/Creatinine Ratio 10.0 Random Glucose 161 mg/dl Lactic Acid Level 1.3 mmol/L Calcium Level 8.1 mg/dl Phosphorus Level 9.7 mg/dl Magnesium Level 2.9 mg/dl Total Bilirubin 0.6 mg/dl Aspartate Amino Transf (AST/SGOT) 21 U/L Alanine Aminotransferase (ALT/SGPT) 26 U/L Alkaline Phosphatase 65 U/L Total Creatine Kinase 218 U/L Creatine Kinase MB 3.0 ng/ml Creatine Kinase MB Ratio 1.4 Troponin I < 0.015 ng/ml Total Protein 8.2 gm/dl Albumin 3.4 gm/dl Globulin 4.8 gm/dl Albumin/Globulin Ratio 0.7 Test 11/20/16 23:52 11/21/16 00:16 11/21/16 01:09 11/21/16 02:01 Bedside Glucose 158 mg/dl 141 mg/dl Sodium Level 131 mmol/L Potassium Level 5.9 mmol/L Chloride Level 101 mmol/L Carbon Dioxide Level 22 mmol/L Anion Gap 9.0 mmol/L Blood Urea Nitrogen 59 mg/dl Creatinine 5.20 mg/dl Est Creatinine Clear Calc Drug Dose 27.9 ml/min Estimated GFR () 14.3 Estimated GFR (Non- 12.3 BUN/Creatinine Ratio 11.3 Random Glucose 175 mg/dl Calcium Level 8.4 mg/dl Phosphorus Level 6.6 mg/dl Magnesium Level 2.5 mg/dl Bedside Hemoglobin 13.3 g/dl Bedside Hematocrit 39 % Bedside Blood Gas pH (LAB) 7.27 Bedside Blood Gas pCO2 (LAB) 52 mmHg Bedside Blood Gas pO2 (LAB) 96 mmHg Bedside Blood Gas HCO3 (LAB) 24 meq/L Bedside Blood Gas Total CO2 25 mEq/l Bedside Blood Gas Base Excess (LAB) -3.0 meq/L Bedside Blood Gas O2 Saturation 96.0 % Bedside Sodium 136 mEq/L Bedside Potassium 4.7 mEq/L Test 11/21/16 02:05 11/21/16 03:50 11/21/16 04:42 Bedside Hemoglobin 13.3 g/dl Bedside Hematocrit 39 % Bedside Blood Gas pH (LAB) 7.29 Bedside Blood Gas pCO2 (LAB) 53 mmHg Bedside Blood Gas pO2 (LAB) 93 mmHg Bedside Blood Gas HCO3 (LAB) 25 meq/L Bedside Blood Gas Total CO2 27 mEq/l Bedside Blood Gas Base Excess (LAB) -1.0 meq/L Bedside Blood Gas O2 Saturation 96.0 % Bedside Sodium 137 mEq/L Bedside Potassium 4.1 mEq/L White Blood Count 10.20 K/uL Red Blood Count 3.66 M/uL Hemoglobin 11.2 g/dL Hematocrit 33.4 % Mean Corpuscular Volume 91.3 fL Mean Corpuscular Hemoglobin 30.6 pg Mean Corpuscular Hemoglobin Concent 33.5 g/dl Platelet Count 195 K/uL Mean Platelet Volume 9.8 fL Neutrophils (%) (Auto) 87.7 % Lymphocytes (%) (Auto) 8.1 % Monocytes (%) (Auto) 3.8 % Eosinophils (%) (Auto) 0.0 % Basophils (%) (Auto) 0.0 % Neutrophils # (Auto) 8.94 K/uL Lymphocytes # (Auto) 0.83 K/uL Monocytes # (Auto) 0.39 K/uL Eosinophils # (Auto) 0.00 K/uL Basophils # (Auto) 0.00 K/uL RDW Standard Deviation 49.6 fL RDW Coefficient of Variation 14.9 % Immature Granulocyte % (Auto) 0.4 % Immature Granulocyte # (Auto) 0.04 K/uL Prothrombin Time 11.4 SECONDS Prothromb Time International Ratio 1.1 Venous Blood pH 7.33 Venous Blood Partial Pressure CO2 41 mmHg Venous Blood Partial Pressure O2 111 mmHg Venous Blood HCO3 21 mmol/L Venous Blood Oxygen Saturation 97.9 % Venous Blood Base Excess -4.3 mEq/L Sodium Level 137 mmol/L Potassium Level 4.0 mmol/L Chloride Level 106 mmol/L Carbon Dioxide Level 23 mmol/L Anion Gap 8.0 mmol/L Blood Urea Nitrogen 39 mg/dl Creatinine 3.30 mg/dl Est Creatinine Clear Calc Drug Dose 43.9 ml/min Estimated GFR () 24.8 Estimated GFR (Non- 21.4 BUN/Creatinine Ratio 12.0 Random Glucose 146 mg/dl Calcium Level 7.1 mg/dl Phosphorus Level 4.0 mg/dl Magnesium Level 2.2 mg/dl Ammonia 45.0 umol/L Total Creatine Kinase 138 U/L Creatine Kinase MB 2.0 ng/ml Creatine Kinase MB Ratio 1.4 Troponin I < 0.015 ng/ml Random Vancomycin Level 18.8 mcg/ml Bedside Glucose 146 mg/dl Resident Involvement: Resident Care Provided Care Provided: Adult Hospital Medicine
[2016-11-21] MEDS: INSULIN ASPART 100 UNITS/ML 3 ML PEN SC SCH ×4 (07:23→20:44)
--- NOTE | 2016-11-21 07:32 | DIAGNOSTIC IMAGING REPORT ---
CHEST ONE VIEW PORTABLE HISTORY: Right HD Cath and Left CVL Placement COMPARISON: Chest 11/20/2016. FINDINGS: The endotracheal tube terminates approximately 3.5 cm from the florencio. Nasogastric tube terminates below the diaphragm. The tip is not included on this study. Left jugular central venous catheter and right jugular central venous catheter remaining at the expected location of the SVC. No pneumothorax. Persistent mediastinal widening.. Small bilateral pleural effusions and bibasilar densities, right greater than left persist. Mild central pulmonary vascular congestion without overt edema. IMPRESSION: 1. Satisfactory support line placement. 2. No definite pneumothorax. 3. Bibasilar densities and small bilateral pleural effusions persist. 4. Persistent mediastinal widening. Electronically signed by: Arnaud Aguilera M.D. 11/21/2016 7:30 AM Dictated Date/Time: 11/21/2016 7:28 AM
[2016-11-21] MEDS ORDERED: PERFLUTREN LIPID MICROSPHERE (DEFINITY) IV ONE (07:51)
[2016-11-21 07:59] LABS: ESTIMATED AVERAGE GLUCOSE 143 mg/dl; HA1C FLAG Normal (Normal)
--- NOTE | 2016-11-21 08:28 | Clinical Documentation Query ---
CLINICAL DOCUMENTATION QUERY 46-y/o male with possible sepsis and acute respiratory failure who present with reported confusion and ultimately becoming more confused and lethargic requiring intubation. In your clinical opinion is this patient being managed for: ( ) Metabolic encephalopathy ( ) Septic encephalopathy ( ) Acute Hepatic encephalopathy ( ) Not Agree ( ) Other explanation of clinical findings (Please Explain) ( ) Unable to determine (Please Define) ( ) Need to Discuss The medical record reflects the following clinical findings, treatment, and risk factors. Clinical Indicators: Reported confusion. Became more unresponsive once transferred to ICU. WBC 15.06, Potassium 7.5, Creatinine 7.0, Calcium 8.2, Serum Lactic acid 2.22, Phosphorus 9.7, Magnesium 2.9, hypotension. Treatment: Intubation and mechanical ventilation, ICU hemodynamic monitoring, IV Solumedrol, IV Vancomycin, IV Zosyn, IV Calcium gluconate, IV Kayexalate, IV Insulin, IV Norepinephrine, IV Cipro, Risk Factors: Sepsis, hyperkalemia, Please clarify and document your clinical opinion in the progress notes and discharge summary. Terms such as "probable", "suspected", "likely", "questionable", "possible", or "still to be ruled out" are acceptable. IF IN AGREEMENT, YOU MUST DOCUMENT ABOVE DIAGNOSTIC STATEMENT IN DAILY PROGRESS NOTES AND DISCHARGE SUMMARY. This document is not part of the patient's record. Thank You, Jens García, GLORIA [phone]
--- NOTE | 2016-11-21 08:29 | Clinical Documentation Query ---
CLINICAL DOCUMENTATION QUERY 46-y/o male with possible sepsis and acute respiratory failure who present with reported confusion and ultimately becoming more confused and lethargic requiring intubation. In your clinical opinion is this patient being managed for: ( ) Metabolic encephalopathy ( ) Septic encephalopathy ( ) Acute Hepatic encephalopathy ( ) Not Agree (x ) Other explanation of clinical findings (Encephalopathy of unknown origin, metabolic vs hypercapnia - respiratory) ( ) Unable to determine (Please Define) ( ) Need to Discuss The medical record reflects the following clinical findings, treatment, and risk factors. Clinical Indicators: Reported confusion. Became more unresponsive once transferred to ICU. WBC 15.06, Potassium 7.5, Creatinine 7.0, Calcium 8.2, Serum Lactic acid 2.22, Phosphorus 9.7, Magnesium 2.9, hypotension. Treatment: Intubation and mechanical ventilation, ICU hemodynamic monitoring, IV Solumedrol, IV Vancomycin, IV Zosyn, IV Calcium gluconate, IV Kayexalate, IV Insulin, IV Norepinephrine, IV Cipro, Risk Factors: Sepsis, hyperkalemia, Please clarify and document your clinical opinion in the progress notes and discharge summary. Terms such as "probable", "suspected", "likely", "questionable", "possible", or "still to be ruled out" are acceptable. IF IN AGREEMENT, YOU MUST DOCUMENT ABOVE DIAGNOSTIC STATEMENT IN DAILY PROGRESS NOTES AND DISCHARGE SUMMARY. This document is not part of the patient's record. Thank You, Jens García, GLORIA [phone]
[2016-11-21] MEDS ORDERED: HEPARIN SOD 5000 UNIT/0.5 ML CARP SQ SCH (09:00)
[2016-11-21] MEDS: SODIUM CHLORIDE 0.9% 1000ML 1,000 ML IV SCH ×2 (09:25→20:42)
[2016-11-21] MEDS ORDERED: MIDAZOLAM HCL 1 MG/ML 2ML VIAL IV PRN ×2 (09:30→10:00)
--- NOTE | 2016-11-21 09:54 | DIAGNOSTIC IMAGING REPORT ---
CHEST ONE VIEW PORTABLE HISTORY: Intubation COMPARISON: Chest 11/20/2016. FINDINGS: Endotracheal tube terminates 4.5 cm from the florencio. Remaining lines and tubes remain unchanged in position. No pneumothorax. The heart and mediastinum remain enlarged. Mild pulmonary edema. Right basilar densities persist. IMPRESSION: 1. Satisfactory support line placement. 2. Mild pulmonary edema and right basilar densities persist. 3. No change in the mediastinal and cardiac enlargement. Electronically signed by: Arnaud Aguilera M.D. 11/21/2016 9:53 AM Dictated Date/Time: 11/21/2016 9:51 AM
[2016-11-21] MEDS ORDERED: HEPARIN SQ 5000 UNIT/0.5ML 7,500 UNIT in SYRINGE 0 ML SC SCH (10:00)
[2016-11-21] MEDS ORDERED: INSULIN GLARGINE SOLOSTAR 100 UNITS/ML 3 ML PEN SC ONE (10:00)
--- NOTE | 2016-11-21 10:10 | Nephrology Progress Note ---
Nephrology Progress Note Date of Service: Nov 21, 2016. Subjective K trended up last evening despite med tx > 7.5 >> pt had emergent HD middle of night 2.5 hr tx on large dialyzer, 1K bath w/ good response on K this am 4.0; had TTE today, results pending; required intubation shortly after ICU arrival d/ t worsening mental/resp status - ICU team hopeful for extubation today Objective Date Time Temp Pulse Resp B/P (MAP) Pulse Ox O2 Delivery O2 Flow Rate FiO2 11/21/16 07:26 60 11/21/16 06:00 72 18 123/72 (89) 97 Mechanical Ventilator 11/21/16 05:10 60 11/21/16 04:00 60 11/21/16 04:00 81 20 147/85 (105) 99 Mechanical Ventilator 60 11/21/16 04:00 100 60 11/21/16 03:00 79 18 142/86 (104) 99 Mechanical Ventilator 11/21/16 02:48 36.7 82 125/50 (75) 11/21/16 02:22 60 11/21/16 02:20 83 18 97 Mechanical Ventilator 60 11/21/16 02:00 82 120/52 11/21/16 02:00 82 18 135/77 (96) 97 60 11/21/16 01:45 84 114/50 11/21/16 01:30 84 134/55 11/21/16 01:15 81 149/64 11/21/16 01:04 87 19 103/60 (74) 97 Mechanical Ventilator 11/21/16 01:00 86 103/60 11/21/16 01:00 86 21 103/69 (80) 100 11/21/16 00:48 87 18 146/84 (104) 100 Mechanical Ventilator 11/21/16 00:45 85 174/71 11/21/16 00:30 82 171/67 11/21/16 00:30 84 17 169/70 (103) 100 11/21/16 00:15 81 158/64 11/21/16 00:00 36.6 78 18 141/60 (87) 100 Mechanical Ventilator 11/21/16 00:00 86 140/61 11/21/16 00:00 100 80 11/21/16 00:00 78 18 141/60 (87) 100 11/21/16 00:00 80 11/20/16 23:50 84 146/61 11/20/16 23:45 36.6 87 150/66 (94) 11/20/16 23:35 80 11/20/16 23:30 91 16 145/72 (96) 11/20/16 23:00 86 16 88/44 (59) 96 Mechanical Ventilator 11/20/16 22:42 80 16 85/31 (49) 95 11/20/16 22:30 100 20 116/39 (64) 96 Mechanical Ventilator 11/20/16 22:28 99 8 122/77 (92) 97 11/20/16 22:09 89 16 92 Mechanical Ventilator 11/20/16 22:00 95 12 94 Mechanical Ventilator 11/20/16 21:25 36.4 98 24 106/62 95 BiPAP 40 11/20/16 20:15 80 11/20/16 19:16 93 98 40 11/20/16 19:01 89/61 11/20/16 18:57 94 21 87/36 93 Room Air 11/20/16 18:14 90 24 113/70 94 BiPAP 11/20/16 16:53 96 26 106/62 93 BiPAP 11/20/16 16:53 100 93 4.0 11/20/16 16:18 88 24 91 Nasal Cannula 2.0 11/20/16 15:16 100 11/20/16 14:59 91 Nasal Cannula 4.0 11/20/16 14:59 91 Nasal Cannula 4.0 11/20/16 14:51 36.5 109 22 146/73 87 Room Air Physical Exam: General Appearance: WD/WN, intubated, sedated, obese Eyes: EOMI ENT: ett, og Neck: supple Respiratory/Chest: + decreased breath sounds, Cardiovascular: regular rate, rhythm, no edema Abdomen: normal bowel sounds, non tender, soft; velázquez w/ ample urine Extremities: no pedal edema Neurologic/Psych: sedated Skin: + pertinent finding (abrasion R conklin) Current Inpatient Medications Medications (Trade) Dose Ordered Sig/Marcell Route Start Time Stop Time Status Last Admin Dose Admin Ondansetron HCl (Zofran Inj) 4 mg Q6H PRN IV 11/20/16 18:15 12/20/16 18:14 Methylprednisolone Sodium Succinate 125 mg/Syringe 2 ml @ 1.5 mls/min Q8H IV 11/21/16 02:00 12/21/16 01:59 11/21/16 02:28 1.5 MLS/MIN Insulin Aspart (novoLOG ASPART) SLIDING SCALE If C... ACHS SC 11/20/16 21:00 12/20/16 20:59 Glucose (Glucose 40% Gel) 15-30 GRAMS 15 GRAMS... UD PRN PO 11/20/16 18:45 12/20/16 18:44 Glucose (Glucose Chew Tab) 4-8 Tablets 4 Tabl... UD PRN PO 11/20/16 18:45 12/20/16 18:44 Dextrose (Dextrose 50% 50ML Syringe) 25-50ML OF 50% DW IV FOR... UD PRN IV 11/20/16 18:45 12/20/16 18:44 Glucagon (Glucagon Inj) 1 mg UD PRN SQ 11/20/16 18:45 12/20/16 18:44 Vancomycin HCl (Consult) 1 ea UD PRN N/A 11/20/16 19:45 12/20/16 19:44 Piperacillin Sod/ Tazobactam Sod (Consult) 1 ea UD PRN N/A 11/20/16 19:45 12/20/16 19:44 Ciprofloxacin (Consult) 1 ea UD PRN N/A 11/20/16 19:45 12/20/16 19:44 Sodium Chloride 1,000 ml @ 80 mls/hr [id number] IV 11/20/16 20:00 12/20/16 19:59 11/21/16 09:25 80 MLS/HR Fentanyl Citrate (Fentanyl Inj) 100 mcg Q1H PRN IV 11/20/16 20:00 12/04/16 19:59 11/20/16 19:30 100 MCG Pantoprazole Sodium 40 mg/ Syringe 10 ml @ 5 mls/min DAILY@1999 IV 11/20/16 20:00 12/20/16 19:59 11/20/16 21:01 5 MLS/MIN Albuterol (Ventolin Hfa Inhaler) 4 puffs Q6R INH 11/21/16 03:00 12/21/16 00:00 11/21/16 07:25 4 PUFFS Ipratropium [place] (Atrovent Hfa Inhaler) 4 puffs Q6R INH 11/21/16 03:00 12/21/16 00:00 11/21/16 07:25 4 PUFFS Ciprofloxacin/ Dextrose 400 mg/ Prmx 200 ml @ 100 mls/hr Q24H IV 11/20/16 23:00 11/27/16 22:59 11/21/16 00:02 100 MLS/HR Norepinephrine Bitartrate 8 mg/ Dextrose 508 ml @ 0 mls/hr Q0M PRN IV 11/20/16 22:44 12/20/16 22:43 11/20/16 23:07 32 MLS/HR Insulin Human Regular 250 units/ Sodium Chloride 252.5 ml @ 0 mls/hr DAILY@1130 IV 11/20/16 23:30 12/20/16 23:29 11/20/16 23:54 10 MLS/HR Heparin Sodium (Porcine) (Heparin Sq 5000 Unit/0.5ml) 5,000 unit Q12H SQ 11/21/16 09:00 12/21/16 08:59 Piperacillin Sod/ Tazobactam Sod 4.5 gm/Dextrose 120 ml @ 30 mls/hr Q8H IV 11/21/16 10:00 11/27/16 17:59 Midazolam HCl (Versed Inj) 2 mg Q1H PRN IV 11/21/16 09:30 12/21/16 09:29 Heparin Sodium (Porcine) 7500 unit/Syringe 0.75 ml @ 0 mls/sec Q8H SC 11/21/16 10:00 12/21/16 09:59 Last 24 Hours Test 11/20/16 15:40 11/20/16 15:44 11/20/16 16:40 11/20/16 17:51 White Blood Count 15.06 K/uL Red Blood Count 4.38 M/uL Hemoglobin 13.6 g/dL Hematocrit 40.3 % Mean Corpuscular Volume 92.0 fL Mean Corpuscular Hemoglobin 31.1 pg Mean Corpuscular Hemoglobin Concent 33.7 g/dl Platelet Count 272 K/uL Mean Platelet Volume 9.9 fL Neutrophils (%) (Auto) 80.5 % Lymphocytes (%) (Auto) 12.0 % Monocytes (%) (Auto) 6.0 % Eosinophils (%) (Auto) 0.9 % Basophils (%) (Auto) 0.1 % Neutrophils # (Auto) 12.12 K/uL Lymphocytes # (Auto) 1.81 K/uL Monocytes # (Auto) 0.91 K/uL Eosinophils # (Auto) 0.13 K/uL Basophils # (Auto) 0.02 K/uL RDW Standard Deviation 50.9 fL RDW Coefficient of Variation 15.2 % Immature Granulocyte % (Auto) 0.5 % Immature Granulocyte # (Auto) 0.07 K/uL Sodium Level 129 mmol/L Potassium Level 6.6 mmol/L Chloride Level 99 mmol/L Carbon Dioxide Level 19 mmol/L Anion Gap 10.0 mmol/L Blood Urea Nitrogen 66 mg/dl Creatinine 7.00 mg/dl Est Creatinine Clear Calc Drug Dose 18.9 ml/min Estimated GFR () 10.0 Estimated GFR (Non- 8.6 BUN/Creatinine Ratio 9.5 Random Glucose 93 mg/dl Calcium Level 8.2 mg/dl Total Bilirubin 0.3 mg/dl Direct Bilirubin 0.1 mg/dl Aspartate Amino Transf (AST/SGOT) 17 U/L Alanine Aminotransferase (ALT/SGPT) 24 U/L Alkaline Phosphatase 66 U/L Troponin I < 0.015 ng/ml Pro-B-Type Natriuretic Peptide 4492 pg/ml Total Protein 8.4 gm/dl Albumin 3.6 gm/dl Procalcitonin 0.26 ng/ml Hepatitis B Surface Antigen NEG Hepatitis B Surface Antibody NEG Bedside Lactic Acid Venous 2.22 mmol/L Venous Blood pH 7.19 Venous Blood Partial Pressure CO2 59 mmHg Venous Blood Partial Pressure O2 38 mmHg Venous Blood HCO3 22 mmol/L Venous Blood Oxygen Saturation < 60.0 % Venous Blood Base Excess -7.1 mEq/L Bedside Glucose 124 mg/dl Test 11/20/16 18:18 11/20/16 19:49 11/20/16 21:08 11/20/16 21:13 Bedside Glucose 240 mg/dl 156 mg/dl Blood Gas Sample Site L Radial Bedside Blood Gas pH (LAB) 7.26 Bedside Blood Gas pCO2 (LAB) 36 mmHg Bedside Blood Gas pO2 (LAB) 135 mmHg Bedside Blood Gas HCO3 (LAB) 16 meq/L Bedside Blood Gas Total CO2 17 mEq/l Bedside Blood Gas Base Excess (LAB) -11.0 meq/L Bedside Blood Gas O2 Saturation 99.0 % Crispin Test Pass Oxygen Delivery Device BIPAP Bedside Oxygen Rate (breaths/min) 12 Bedside FiO2 40 % Blood Gas IPAP 12 Sodium Level 127 mmol/L Potassium Level 7.5 mmol/L Chloride Level 100 mmol/L Carbon Dioxide Level 19 mmol/L Anion Gap 8.0 mmol/L Blood Urea Nitrogen 71 mg/dl Creatinine 7.10 mg/dl Est Creatinine Clear Calc Drug Dose 20.4 ml/min Estimated GFR () 9.8 Estimated GFR (Non- 8.5 BUN/Creatinine Ratio 10.0 Random Glucose 161 mg/dl Lactic Acid Level 1.3 mmol/L Calcium Level 8.1 mg/dl Phosphorus Level 9.7 mg/dl Magnesium Level 2.9 mg/dl Total Bilirubin 0.6 mg/dl Aspartate Amino Transf (AST/SGOT) 21 U/L Alanine Aminotransferase (ALT/SGPT) 26 U/L Alkaline Phosphatase 65 U/L Total Creatine Kinase 218 U/L Creatine Kinase MB 3.0 ng/ml Creatine Kinase MB Ratio 1.4 Troponin I < 0.015 ng/ml Total Protein 8.2 gm/dl Albumin 3.4 gm/dl Globulin 4.8 gm/dl Albumin/Globulin Ratio 0.7 Test 11/20/16 23:52 11/21/16 00:16 11/21/16 01:09 11/21/16 02:01 Bedside Glucose 158 mg/dl 141 mg/dl Sodium Level 131 mmol/L Potassium Level 5.9 mmol/L Chloride Level 101 mmol/L Carbon Dioxide Level 22 mmol/L Anion Gap 9.0 mmol/L Blood Urea Nitrogen 59 mg/dl Creatinine 5.20 mg/dl Est Creatinine Clear Calc Drug Dose 27.9 ml/min Estimated GFR () 14.3 Estimated GFR (Non- 12.3 BUN/Creatinine Ratio 11.3 Random Glucose 175 mg/dl Calcium Level 8.4 mg/dl Phosphorus Level 6.6 mg/dl Magnesium Level 2.5 mg/dl Bedside Hemoglobin 13.3 g/dl Bedside Hematocrit 39 % Bedside Blood Gas pH (LAB) 7.27 Bedside Blood Gas pCO2 (LAB) 52 mmHg Bedside Blood Gas pO2 (LAB) 96 mmHg Bedside Blood Gas HCO3 (LAB) 24 meq/L Bedside Blood Gas Total CO2 25 mEq/l Bedside Blood Gas Base Excess (LAB) -3.0 meq/L Bedside Blood Gas O2 Saturation 96.0 % Bedside Sodium 136 mEq/L Bedside Potassium 4.7 mEq/L Test 11/21/16 02:05 11/21/16 03:50 11/21/16 04:42 Bedside Hemoglobin 13.3 g/dl Bedside Hematocrit 39 % Bedside Blood Gas pH (LAB) 7.29 Bedside Blood Gas pCO2 (LAB) 53 mmHg Bedside Blood Gas pO2 (LAB) 93 mmHg Bedside Blood Gas HCO3 (LAB) 25 meq/L Bedside Blood Gas Total CO2 27 mEq/l Bedside Blood Gas Base Excess (LAB) -1.0 meq/L Bedside Blood Gas O2 Saturation 96.0 % Bedside Sodium 137 mEq/L Bedside Potassium 4.1 mEq/L White Blood Count 10.20 K/uL Red Blood Count 3.66 M/uL Hemoglobin 11.2 g/dL Hematocrit 33.4 % Mean Corpuscular Volume 91.3 fL Mean Corpuscular Hemoglobin 30.6 pg Mean Corpuscular Hemoglobin Concent 33.5 g/dl Platelet Count 195 K/uL Mean Platelet Volume 9.8 fL Neutrophils (%) (Auto) 87.7 % Lymphocytes (%) (Auto) 8.1 % Monocytes (%) (Auto) 3.8 % Eosinophils (%) (Auto) 0.0 % Basophils (%) (Auto) 0.0 % Neutrophils # (Auto) 8.94 K/uL Lymphocytes # (Auto) 0.83 K/uL Monocytes # (Auto) 0.39 K/uL Eosinophils # (Auto) 0.00 K/uL Basophils # (Auto) 0.00 K/uL RDW Standard Deviation 49.6 fL RDW Coefficient of Variation 14.9 % Immature Granulocyte % (Auto) 0.4 % Immature Granulocyte # (Auto) 0.04 K/uL Prothrombin Time 11.4 SECONDS Prothromb Time International Ratio 1.1 Venous Blood pH 7.33 Venous Blood Partial Pressure CO2 41 mmHg Venous Blood Partial Pressure O2 111 mmHg Venous Blood HCO3 21 mmol/L Venous Blood Oxygen Saturation 97.9 % Venous Blood Base Excess -4.3 mEq/L Sodium Level 137 mmol/L Potassium Level 4.0 mmol/L Chloride Level 106 mmol/L Carbon Dioxide Level 23 mmol/L Anion Gap 8.0 mmol/L Blood Urea Nitrogen 39 mg/dl Creatinine 3.30 mg/dl Est Creatinine Clear Calc Drug Dose 43.9 ml/min Estimated GFR () 24.8 Estimated GFR (Non- 21.4 BUN/Creatinine Ratio 12.0 Random Glucose 146 mg/dl Estimated Average Glucose 143 mg/dl Hemoglobin A1c 6.6 % Calcium Level 7.1 mg/dl Phosphorus Level 4.0 mg/dl Magnesium Level 2.2 mg/dl Ammonia 45.0 umol/L Total Creatine Kinase 138 U/L Creatine Kinase MB 2.0 ng/ml Creatine Kinase MB Ratio 1.4 Troponin I < 0.015 ng/ml Random Vancomycin Level 18.8 mcg/ml Bedside Glucose 146 mg/dl Date/Time Source Procedure Growth Status 11/20/16 16:40 Blood Blood Culture Pending Received 11/20/16 15:40 Blood Blood Culture Pending Received 11/20/16 19:21 Nasal MRSA DNA Surveillance Screen - Final Specimen Negative for MRSA by DNA Probe Complete Assessment & Plan 46 y/o M w/ NIDDM, HTN, BMI 50, active tobacco abuse, anxiety/depression admitted 11/20 for hyperkalemia and acute renal and respiratory failure. He reported several weeks of productive cough prior to admission and orthostatic symptoms. His presenting K was 6.6, presenting creatinine 7. He was intubated on evening of admission d/t worsening mental/respiratory status > presenting sx most c/w COPD exacerbation. He needed emergent dialysis overnight on night of admission d/t K worsening to 7.5 despite medical therapy. Baseline creatinine from about 18 mos ago is 1.1. he may have been using ELIZA/hctz as outpt; outpt meds still not clear. Acute non oliguric renal failure > favor ischemia > prerenal versus progression to ATN; GN a remote possibility as well (need to be mindful of this with presenting respiratory sx); doubt interstitial nephritis based on this sediment (though AIN notoriously difficult to dx accurately w/o bx) ketones, >1030 sG, crystalluria > no UTI; could easily be prerenal; some blood and protein as well -brisk urine output a good sign as is improved BP (some hypotension on presentation/early last evening; needed pressor support during HD); no need for pressor support or IVF at this time -f/u repeat creatinine trend as we get further out from HD -do not remove temp HD cath just yet; no indication at this time for permanent one -no further HD planned currently but follow clinically for need -ordered repeat UACM today and get prot/creat ratio; hold off on serologies pending ratio; FENa, FE may be useful clinically <> will check -renal imaging when stable > not unreasonable to start w/ CT C/A/P 9see below) -if vancomycin therapy ongoing, monitor levels closely/frequently and avoid troughs >25 Hyperkalemia failed medical therapy; treated w/ emergent HD 11/20; other chemistries acceptable/near normal now (phos, Na, mag have normalized/improved w/ supportive care) -cause unclear >> CK wnl; lactate normalized quickly; possible offending outpt med (ACEI) + dehydration -cont q6h urgent bmp x at least 2 more checks Hypotension, reported orthostatic sx and observed progressive confusion prior to intubation -f/u pending cxs and TTE -?carotid studies -mediastinal widening persistently reported on imaging (may be artifact in large ?malpositioned pt) >> w/ respiratory and renal failure, low threshold for CT chest Appreciate consult; will follow with you
[2016-11-21] MEDS: HEPARIN SQ 5000 UNIT/0.5ML 7,500 UNIT in SYRINGE 0 ML SC SCH ×2 (10:15→19:48)
--- NOTE | 2016-11-21 10:30 | Progress Note ---
Progress Note Date of Service Nov 21, 2016. Progress Note ID Consult Dictated #[id number] A/P: 1. Leukocytosis -Suspect reactive, now improved. -No clear infection identified,cultures pending, could continue for additional 24-48 pending culture results -Continue supportive care -thank you
--- NOTE | 2016-11-21 11:35 | INFECT. DISEASE CONSULTATION ---
DATE OF CONSULTATION: 11/21/2016 REQUESTING PHYSICIAN: Dr. Viveros. HISTORY OF PRESENT ILLNESS: This is a 46-year-old gentleman who was admitted to the hospital with progressive shortness of breath over the period of the last 2 weeks. He did have a negative chest x-ray with the exception of an enlarged heart and widened mediastinum. He had a questionable infiltrate versus atelectasis; however, all of his imaging has been portable and poor quality secondary to his body habitus. He was found initially to have a white blood cell count of 15, which has improved to 10. His ammonia was elevated at 45. He also was found to be hyperkalemic with a creatinine of 7. He has been given fluids. Urinalysis was unremarkable with only 5-10 WBCs. Blood and urine cultures were ordered as part of his initial workup and he was placed on multiple antibiotics. Throughout the evening, he had worsening or change in mental status and subsequently was intubated. His procalcitonin is negative. Infectious disease was consulted because the patient is on broad spectrum antibiotics. On my examination, he is intubated and sedated on a ventilator and unable to provide any review of systems. He is being followed by nephrology and critical care as well. PAST MEDICAL HISTORY: Significant for anxiety, depression, type 2 diabetes, high cholesterol, hypertension and morbid obesity. FAMILY HISTORY: Noncontributory. SOCIAL HISTORY: Significant for daily tobacco use. There is no known history of alcohol or drug use. ALLERGIES: He has no known drug allergies. MEDICATIONS: Include Solu-Medrol, subQ heparin, Versed, albuterol, Atrovent, norepinephrine, insulin, Tylenol, Protonix and Zofran. He was given multiple antibiotics consisting of Zosyn, Cipro, vancomycin, and azithromycin, which have subsequently been discontinued this morning. PHYSICAL EXAMINATION: VITAL SIGNS: He is afebrile, pulse 72, respiratory rate 18, blood pressure 123/72, and oxygen saturation is 90% on 60% FiO2. GENERAL: He is sedated on the ventilator. HEART: Regular. LUNGS: Clear with decreased breath sounds at the bases bilaterally. ABDOMEN: Nondistended. There is no edema bilaterally. There are chronic stasis changes of his extremities and a superficial ulceration over the anterior conklin on the right lower extremity. LABORATORY STUDIES: CBC today reveals a white blood cell count of 10.2, hemoglobin 11.2, and platelets are 195. Chemistry panel this morning, sodium 137, potassium 4.0, chloride 106, bicarbonate 23, BUN 39, creatinine 3.3, and glucose 146. Urinalysis was negative. Hepatitis antibody for hepatitis B is negative. MRSA swab was negative. Blood and urine cultures are pending. His most recent chest x-ray was done this morning, which shows mild pulmonary edema. Echo is pending. ASSESSMENT AND PLAN: Leukocytosis. At this time, I suspect leukocytosis is secondary to other metabolic abnormalities, which are being treated in the intensive care unit. His procalcitonin is negative and he has been afebrile; however, cultures are pending. It would not be reasonable to continue antibiotics for the next 24-48 hours pending any culture results. I do not see any clear source of infection at this time. Thank you for this consultation. SOLEDAD
[2016-11-21] MEDS: METHYLPREDNISOLONE IV 60 MG in SYRINGE 0 ML IV SCH ×2 (11:37→19:47)
[2016-11-21 11:52] LABS: URINE APPEARANCE CLEAR (CLEAR); URINE BILIRUBIN NEG (NEG); URINE COLOR YELLOW; URINE EPITHELIAL CELL AUTO 0-5 /lpf (0-5); URINE NITRITE NEG (NEG); URINE SPECIFIC GRAVITY 1.025 (1.000-1.030); UROBILINOGEN NEG (NEG)
[2016-11-21 11:53] LABS: MANUAL MICROSCOPIC REQUIRED? NO; REVIEW REQ? NO
[2016-11-21 12:29] LABS: ISTAT ARTERIAL BLOOD GAS HCO3 24 meq/L (19-24); ISTAT ARTERIAL BLOOD GAS PCO2 52 mmHg (35-46); ISTAT ARTERIAL BLOOD GAS PO2 98 mmHg (80-95); ISTAT ARTERIAL BLOOD GAS pH 7.28 (7.35-7.45); ISTAT CARBON DIOXIDE 25 mEq/l (24-31); ISTAT DELIVERY SYSTEM Ventilator; ISTAT FIO2 50 %; ISTAT PEEP 8; ISTAT SITE Art Line
[2016-11-21 12:49] LABS: URINE PROTIEN/CREAT RATIO 0.3 (0-0.2); URINE TOTAL PROTEIN 65.3 mg/dl (0-11.9)
[2016-11-21 12:49] LABS: BUN/CREATININE RATIO 15.2 (10-20); CALCIUM 8.6 mg/dl (8.5-10.1); CREATININE 3.1 mg/dl (0.60-1.40); MAGNESIUM 2.4 mg/dl (1.8-2.4); PHOSPHORUS 5.2 mg/dl (2.5-4.9); POTASSIUM 4.7 mmol/L (3.5-5.1)
[2016-11-21] MEDS ORDERED: VALA1TAB31 PO (14:35)
[2016-11-21] MEDS ORDERED: OXYC-59 PO (14:35)
[2016-11-21] MEDS ORDERED: BUPR150T7 PO (14:35)
[2016-11-21] MEDS ORDERED: METF1000 PO (14:35)
[2016-11-21] MEDS ORDERED: LPT40 PO (14:35)
[2016-11-21] MEDS ORDERED: NRN300 PO (14:35)
[2016-11-21] MEDS ORDERED: AMT50 PO (14:35)
[2016-11-21] MEDS ORDERED: SERT-234 PO (14:35)
[2016-11-21] MEDS: ALBUTEROL 0.083% NEBU SOLN 3 ML VIAL INH SCH ×2 (15:00→20:27)
--- NOTE | 2016-11-21 15:08 | Pharmacy Progress Note ---
Glycemic Control Intl Consult Date of Service Nov 21, 2016. Scope Glycemic Pharmacist consulted by Dr Gonzalez on 11/21/16 for glycemic control and to write orders per [facility] inpatient glycemic control protocol Objective Weight (Kilograms): 171.700 Accuchecks BSG (last 24hrs): Test 11/20/16 15:40 11/20/16 17:51 11/20/16 18:18 11/20/16 21:08 Random Glucose 93 mg/dl (70-99) Bedside Glucose 124 mg/dl (70-99) 240 mg/dl (70-99) 156 mg/dl (70-99) Test 11/20/16 21:13 11/20/16 23:52 11/21/16 00:16 11/21/16 02:01 Random Glucose 161 mg/dl (70-99) 175 mg/dl (70-99) Bedside Glucose 158 mg/dl (70-99) 141 mg/dl (70-99) Test 11/21/16 03:50 11/21/16 04:42 11/21/16 11:43 11/21/16 12:03 Random Glucose 146 mg/dl (70-99) 128 mg/dl (70-99) Bedside Glucose 146 mg/dl (70-99) 124 mg/dl (70-99) Laboratory Data (last 24hrs) Test 11/20/16 15:40 11/20/16 21:13 11/21/16 00:16 11/21/16 03:50 Anion Gap 10.0 mmol/L 8.0 mmol/L 9.0 mmol/L 8.0 mmol/L BUN/Creatinine Ratio 9.5 10.0 11.3 12.0 Blood Urea Nitrogen 66 mg/dl 71 mg/dl 59 mg/dl 39 mg/dl Creatinine 7.00 mg/dl 7.10 mg/dl 5.20 mg/dl 3.30 mg/dl Potassium Level 6.6 mmol/L 7.5 mmol/L 5.9 mmol/L 4.0 mmol/L Sodium Level 129 mmol/L 127 mmol/L 131 mmol/L 137 mmol/L White Blood Count 15.06 K/uL 10.20 K/uL Red Blood Count 4.38 M/uL 3.66 M/uL Hemoglobin 13.6 g/dL 11.2 g/dL Hematocrit 40.3 % 33.4 % Mean Corpuscular Volume 92.0 fL 91.3 fL Mean Corpuscular Hemoglobin 31.1 pg 30.6 pg Mean Corpuscular Hemoglobin Concent 33.7 g/dl 33.5 g/dl Platelet Count 272 K/uL 195 K/uL Mean Platelet Volume 9.9 fL 9.8 fL Neutrophils (%) (Auto) 80.5 % 87.7 % Lymphocytes (%) (Auto) 12.0 % 8.1 % Monocytes (%) (Auto) 6.0 % 3.8 % Eosinophils (%) (Auto) 0.9 % 0.0 % Basophils (%) (Auto) 0.1 % 0.0 % Neutrophils # (Auto) 12.12 K/uL 8.94 K/uL Lymphocytes # (Auto) 1.81 K/uL 0.83 K/uL Monocytes # (Auto) 0.91 K/uL 0.39 K/uL Eosinophils # (Auto) 0.13 K/uL 0.00 K/uL Basophils # (Auto) 0.02 K/uL 0.00 K/uL Hemoglobin A1c 6.6 % Test 11/21/16 12:03 Anion Gap 9.0 mmol/L BUN/Creatinine Ratio 15.2 Blood Urea Nitrogen 47 mg/dl Creatinine 3.10 mg/dl Potassium Level 4.7 mmol/L Sodium Level 134 mmol/L HbA1c Test 11/21/16 03:50 Hemoglobin A1c 6.6 % (4.5-5.6) H Recent Pertinent Medications Outpatient Anti-diabetic Regimen: * Metformin 500mg PO BID * A1c = 6.6 % 11/21/16 The patient is currently receiving: * IV insulin infusion was running overnight at 10 units/hour * Novolog SQ Q 6 hrs * Goal range 140 - 180mg/dL * Correction factor 10mg/dL/unit * Carb ratio 1 unit per 4 grams carbs eaten Risk Factors for Insulin Resistance: * Steroids: Solu-Medrol 125mg IV Q 8 hrs --> decreased to 60mg IV Q 8 hrs * Pressors: did received Norepi infusion for a short while during HD session yesterday - this has remained off since * IVF: D10W @ 75cc/hr running until ~0900 * Diet: NPO * Mechanical Ventilation: possible extubation today Assessment & Plan ASSESSMENT: 11/21/16 * Type 2 diabetic, reasonably well controlled w/ metformin monotherapy - admitted with diarrhea, cough, SOB and increased sputum production; found to have NOEMY w/ hyperkalemia requiring hemodialysis. Also requiring intubation for hypoxemia. * Renal fxn appears to be improving based upon U.O. and SCr. Patient may be extubated later today. * IV insulin infusion + D10W initiated for management of hyperkalemia - both of which have been d/c'd this AM * BSGs ranged 140-150's on insulin infusion @10 units/hr + D10W at 75cc/hr * IV steroid therapy continues at this time. If he does begin enteral nutrition today he will likely become hyperglycemic without aggressive SQ regimen * Will begin a basal/bolus SQ regimen based upon an anticipated total daily insulin requirement of ~0.6+units/kg/day with current steroid dose PLAN FOR INPATIENT GLYCEMIC CONTROL: * Lantus 30 units SQ x 1 STAT, then begin 25 units SQ BID * Novolog SQ ACHS and at 0200 tonight * Correction factor 10 mg/dl/unit * Carb ratio to 1 unit per 4 grams CHO consumed * Goal range Low 140 mg/dL - High 180 mg/dL * Please note that the plan above was derived based on current level of insulin resistance and hospital stress. These recommendations are appropriate for inpatient admission only. Plan of care upon discharge will need to be reassessed to avoid potential outpatient hypo/hyperglycemia. Thank you.
[2016-11-21] MEDS ORDERED: PHARMACY GLYCEMIC MGMT CONSULT PRN (16:00)
--- NOTE | 2016-11-21 16:56 | ECHOCARDIOGRAM REPORT ---
*NOTICE TO RECEIVING CONSTITUTION PARTY AGENCY This information is strictly Confidential and protected under [place] law. [place] law prohibits you from making any further disclosure of this information unless further disclosure is expressly permitted by the written consent of the person to whom it pertains or is authorized by law. A general authorization for the release of medical or other information is not sufficient for this purpose. Hospital accepts no responsibility if the information is made available to any other person, INCLUDING THE PATIENT. Interpretation Summary * Name: KARL HANDLEY Study Date: 11/21/2016 06:37 AM BP: 147/85 mmHg * Patient Location: .MSICU\S\E103\S\1 HR: 81 * : 1970 (M/d/yyyy) Gender: Male Height: 68 in * Age: 46 yrs Ethnicity: CA Weight: 326 lb * Ordering Physician: Radha Arrieta * Referring Physician: Self, Referred * Performed By: Marco Antonio De León RCS * * Reason For Study: Respiratory Failure, Hypotension * BSA: 2.5 m2 * The study was technically limited. * Grossly normal valvular structure and function. * -- Conclusions -- * The study was technically limited. * The left ventricular ejection fraction is grossly normal. * Grossly normal valvular structure and function. Procedure Details * A complete two-dimensional transthoracic echocardiogram was performed (2D, M-mode, Doppler and color flow Doppler). * The study was technically difficult. * The study was technically limited. * There were technical limitations due to patient'ssupine positioning while on mechanical ventilation * A contrast injection of Definity was performed to improve assessment of LV function. * Contrast was injected into an intravenous site in the central line. * One vial of Definity ultrasound contrast was diluted in normal saline to a total volume of 10 ml. A total of '3' ml of solution was administered during imaging. * Lot # [id number] of Definity utilized for procedure. * Expiration date . * The attending nurse who injected the contrast agent was Viridiana Vergara RN. Left Ventricle * The left ventricle is not well visualized. * The left ventricle is grossly normal size. * The left ventricular ejection fraction is grossly normal. Right Ventricle * The right ventricle is not well visualized. Atria * The left atrium is not well visualized. * Right atrium not well visualized. Mitral Valve * The mitral valve is not well visualized. * Significant mitral regurgitation is absent. Tricuspid Valve * The tricuspid valve is not well visualized. * Significant tricuspid regurgitation is absent. Aortic Valve * The aortic valve is not well visualized. * No hemodynamically significant valvular aortic stenosis. * There is no significant aortic regurgitation. Pulmonic Valve * The pulmonic valve is not well visualized. MMode 2D Measurements and Calculations IVSd 1.1 cm IVSs 1.4 cm LVIDd 5.0 cm LVIDs 4.2 cm LVPWd 1.1 cm LVPWs 1.4 cm IVS/LVPW 0.98 FS 14.5 % EDV(Teich) 116.6 ml ESV(Teich) 80.7 ml EF(Teich) 30.8 % EDV(cubed) 122.7 ml ESV(cubed) 76.6 ml EF(cubed) 37.6 % % IVS thick 23.7 % % LVPW thick 25.3 % LV mass(C)d 208.2 grams LV mass(C)dI 82.8 grams/m\S\2 LV mass(C)s 224.3 grams LV mass(C)sI 89.2 grams/m\S\2 SV(Teich) 35.9 ml SI(Teich) 14.3 ml/m\S\2 SV(cubed) 46.1 ml SI(cubed) 18.3 ml/m\S\2 Ao root diam 3.6 cm Ao root area 9.9 cm\S\2 ACS 1.7 cm LA dimension 3.3 cm asc Aorta Diam 2.9 cm LA/Ao 0.94 LVAd ap4 37.1 cm\S\2 LVLd ap4 8.6 cm EDV(MOD-sp4) 136.1 ml EDV(sp4-el) 135.6 ml LVAs ap4 26.9 cm\S\2 LVLs ap4 7.2 cm ESV(MOD-sp4) 100.5 ml ESV(sp4-el) 85.8 ml EF(MOD-sp4) 26.1 % EF(sp4-el) 36.7 % LVAd ap2 31.2 cm\S\2 LVLd ap2 7.9 cm EDV(MOD-sp2) 118.2 ml EDV(sp2-el) 104.8 ml LVAs ap2 26.5 cm\S\2 LVLs ap2 7.9 cm ESV(MOD-sp2) 81.9 ml ESV(sp2-el) 75.3 ml EF(MOD-sp2) 30.7 % EF(sp2-el) 28.1 % LVLs %diff 9.2 % ESV(MOD-bp) 83.3 ml SV(MOD-sp4) 35.5 ml SI(MOD-sp4) 14.1 ml/m\S\2 SV(MOD-sp2) 36.3 ml SI(MOD-sp2) 14.4 ml/m\S\2 SV(sp4-el) 49.8 ml SI(sp4-el) 19.8 ml/m\S\2 SV(sp2-el) 29.5 ml SI(sp2-el) 11.7 ml/m\S\2 Doppler Measurements and Calculations MV E max nathalia 86.7 cm/sec MV A max nathalia 60.4 cm/sec MV E/A 1.4 MV P1/2t max nathalia 83.0 cm/sec MV P1/2t 96.2 msec MVA(P1/2t) 2.3 cm\S\2 MV dec slope 252.9 cm/sec\S\2 MV dec time 0.22 sec Ao V2 max 113.1 cm/sec Ao max PG 5.1 mmHg Ao max PG (full) 0.62 mmHg LV V1 max PG 4.5 mmHg LV V1 max 106.0 cm/sec PA V2 max 92.5 cm/sec PA max PG 3.4 mmHg TR max nathalia 189.7 cm/sec
--- NOTE | 2016-11-21 17:21 | Progress Note ---
Medicine Progress Note Date & Time of Visit: Nov 21, 2016 at 16:42. Subjective Pt was seen and examined Sedated and intubated on vent support Objective Last 8 Hrs Date Time Temp Pulse Resp B/P (MAP) Pulse Ox O2 Delivery O2 Flow Rate FiO2 11/21/16 14:27 83 18 95 Mask 4.0 11/21/16 14:00 102 20 107/64 (78) 98 Oxymask 6.0 11/21/16 12:00 Mechanical Ventilator 40 11/21/16 12:00 40 11/21/16 12:00 37.4 102 20 134/73 (93) 98 Mechanical Ventilator 40 113/65 (81) 11/21/16 11:44 60 11/21/16 10:25 Mechanical Ventilator 40 11/21/16 10:00 71 21 140/87 (104) 98 Mechanical Ventilator 50 Physical Exam: General- sedated Head- atraumatic Eyes- PERRL ENT- intubated Neck- supple, no JVD Lungs- coarse bs Heart- regular rhythm Abdomen- normal bowel sounds Extremities- +edema Neuro- Sedated Skin- warm & dry Laboratory Results: Last 24 Hours Test 11/20/16 17:51 11/20/16 18:18 11/20/16 19:49 11/20/16 21:08 Bedside Glucose 124 mg/dl 240 mg/dl 156 mg/dl Blood Gas Sample Site L Radial Bedside Blood Gas pH (LAB) 7.26 Bedside Blood Gas pCO2 (LAB) 36 mmHg Bedside Blood Gas pO2 (LAB) 135 mmHg Bedside Blood Gas HCO3 (LAB) 16 meq/L Bedside Blood Gas Total CO2 17 mEq/l Bedside Blood Gas Base Excess (LAB) -11.0 meq/L Bedside Blood Gas O2 Saturation 99.0 % Crispin Test Pass Oxygen Delivery Device BIPAP Bedside Oxygen Rate (breaths/min) 12 Bedside FiO2 40 % Blood Gas IPAP 12 Test 11/20/16 21:13 11/20/16 23:52 11/21/16 00:16 11/21/16 01:09 Sodium Level 127 mmol/L 131 mmol/L Potassium Level 7.5 mmol/L 5.9 mmol/L Chloride Level 100 mmol/L 101 mmol/L Carbon Dioxide Level 19 mmol/L 22 mmol/L Anion Gap 8.0 mmol/L 9.0 mmol/L Blood Urea Nitrogen 71 mg/dl 59 mg/dl Creatinine 7.10 mg/dl 5.20 mg/dl Est Creatinine Clear Calc Drug Dose 20.4 ml/min 27.9 ml/min Estimated GFR () 9.8 14.3 Estimated GFR (Non- 8.5 12.3 BUN/Creatinine Ratio 10.0 11.3 Random Glucose 161 mg/dl 175 mg/dl Lactic Acid Level 1.3 mmol/L Calcium Level 8.1 mg/dl 8.4 mg/dl Phosphorus Level 9.7 mg/dl 6.6 mg/dl Magnesium Level 2.9 mg/dl 2.5 mg/dl Total Bilirubin 0.6 mg/dl Aspartate Amino Transf (AST/SGOT) 21 U/L Alanine Aminotransferase (ALT/SGPT) 26 U/L Alkaline Phosphatase 65 U/L Total Creatine Kinase 218 U/L Creatine Kinase MB 3.0 ng/ml Creatine Kinase MB Ratio 1.4 Troponin I < 0.015 ng/ml Total Protein 8.2 gm/dl Albumin 3.4 gm/dl Globulin 4.8 gm/dl Albumin/Globulin Ratio 0.7 Bedside Glucose 158 mg/dl Bedside Hemoglobin 13.3 g/dl Bedside Hematocrit 39 % Bedside Blood Gas pH (LAB) 7.27 Bedside Blood Gas pCO2 (LAB) 52 mmHg Bedside Blood Gas pO2 (LAB) 96 mmHg Bedside Blood Gas HCO3 (LAB) 24 meq/L Bedside Blood Gas Total CO2 25 mEq/l Bedside Blood Gas Base Excess (LAB) -3.0 meq/L Bedside Blood Gas O2 Saturation 96.0 % Bedside Sodium 136 mEq/L Bedside Potassium 4.7 mEq/L Test 11/21/16 02:01 11/21/16 02:05 11/21/16 03:50 11/21/16 04:42 Bedside Glucose 141 mg/dl 146 mg/dl Bedside Hemoglobin 13.3 g/dl Bedside Hematocrit 39 % Bedside Blood Gas pH (LAB) 7.29 Bedside Blood Gas pCO2 (LAB) 53 mmHg Bedside Blood Gas pO2 (LAB) 93 mmHg Bedside Blood Gas HCO3 (LAB) 25 meq/L Bedside Blood Gas Total CO2 27 mEq/l Bedside Blood Gas Base Excess (LAB) -1.0 meq/L Bedside Blood Gas O2 Saturation 96.0 % Bedside Sodium 137 mEq/L Bedside Potassium 4.1 mEq/L White Blood Count 10.20 K/uL Red Blood Count 3.66 M/uL Hemoglobin 11.2 g/dL Hematocrit 33.4 % Mean Corpuscular Volume 91.3 fL Mean Corpuscular Hemoglobin 30.6 pg Mean Corpuscular Hemoglobin Concent 33.5 g/dl Platelet Count 195 K/uL Mean Platelet Volume 9.8 fL Neutrophils (%) (Auto) 87.7 % Lymphocytes (%) (Auto) 8.1 % Monocytes (%) (Auto) 3.8 % Eosinophils (%) (Auto) 0.0 % Basophils (%) (Auto) 0.0 % Neutrophils # (Auto) 8.94 K/uL Lymphocytes # (Auto) 0.83 K/uL Monocytes # (Auto) 0.39 K/uL Eosinophils # (Auto) 0.00 K/uL Basophils # (Auto) 0.00 K/uL RDW Standard Deviation 49.6 fL RDW Coefficient of Variation 14.9 % Immature Granulocyte % (Auto) 0.4 % Immature Granulocyte # (Auto) 0.04 K/uL Prothrombin Time 11.4 SECONDS Prothromb Time International Ratio 1.1 Venous Blood pH 7.33 Venous Blood Partial Pressure CO2 41 mmHg Venous Blood Partial Pressure O2 111 mmHg Venous Blood HCO3 21 mmol/L Venous Blood Oxygen Saturation 97.9 % Venous Blood Base Excess -4.3 mEq/L Sodium Level 137 mmol/L Potassium Level 4.0 mmol/L Chloride Level 106 mmol/L Carbon Dioxide Level 23 mmol/L Anion Gap 8.0 mmol/L Blood Urea Nitrogen 39 mg/dl Creatinine 3.30 mg/dl Est Creatinine Clear Calc Drug Dose 43.9 ml/min Estimated GFR () 24.8 Estimated GFR (Non- 21.4 BUN/Creatinine Ratio 12.0 Random Glucose 146 mg/dl Estimated Average Glucose 143 mg/dl Hemoglobin A1c 6.6 % Calcium Level 7.1 mg/dl Phosphorus Level 4.0 mg/dl Magnesium Level 2.2 mg/dl Ammonia 45.0 umol/L Total Creatine Kinase 138 U/L Creatine Kinase MB 2.0 ng/ml Creatine Kinase MB Ratio 1.4 Troponin I < 0.015 ng/ml Random Vancomycin Level 18.8 mcg/ml Test 11/21/16 10:50 11/21/16 11:43 11/21/16 12:03 11/21/16 12:17 Urine Color YELLOW Urine Appearance CLEAR Urine pH 5.0 Urine Specific [place] 1.025 Urine Protein TRACE Urine Glucose (UA) NEG Urine Ketones NEG Urine Occult Blood 3+ Urine Nitrite NEG Urine Bilirubin NEG Urine Urobilinogen NEG Urine Leukocyte Esterase NEG Urine WBC (Auto) 1-5 /hpf Urine RBC (Auto) 5-10 /hpf Urine Hyaline Casts (Auto) 0 /lpf Urine Epithelial Cells (Auto) 0-5 /lpf Urine Bacteria (Auto) NEG Urine Random Creatinine 200.0 mg/dl Urine Random Total Protein 65.3 mg/dl Urine Random Sodium 40 mEq/L Urine Protein/Creatinine Ratio 0.3 Bedside Glucose 124 mg/dl Sodium Level 134 mmol/L Potassium Level 4.7 mmol/L Chloride Level 101 mmol/L Carbon Dioxide Level 24 mmol/L Anion Gap 9.0 mmol/L Blood Urea Nitrogen 47 mg/dl Creatinine 3.10 mg/dl Est Creatinine Clear Calc Drug Dose 46.7 ml/min Estimated GFR () 26.7 Estimated GFR (Non- 23.0 BUN/Creatinine Ratio 15.2 Random Glucose 128 mg/dl Calcium Level 8.6 mg/dl Phosphorus Level 5.2 mg/dl Magnesium Level 2.4 mg/dl Ammonia 38.3 umol/L Blood Gas Sample Site Art Line Bedside Blood Gas pH (LAB) 7.28 Bedside Blood Gas pCO2 (LAB) 52 mmHg Bedside Blood Gas pO2 (LAB) 98 mmHg Bedside Blood Gas HCO3 (LAB) 24 meq/L Bedside Blood Gas Total CO2 25 mEq/l Bedside Blood Gas Base Excess (LAB) -3.0 meq/L Bedside Blood Gas O2 Saturation 96.0 % Crispin Test NA Oxygen Delivery Device Ventilator Bedside FiO2 50 % Blood Gas PEEP 8 Date/Time Source Procedure Growth Status 11/20/16 19:21 Nasal MRSA DNA Surveillance Screen - Final Specimen Negative for MRSA by DNA Probe Complete Assessment & Plan ACUTE HYPOXIC RESPIRATORY FAILURE Related to COPD exacerbation Intubated on vent support sedated with versed Blood cultures pending received empirical abx that was d/c after procalcitonin was normal CXR on admission showed Mediastinal widening, possibly secondary to fat deposition Right basal airspace opacity versus overlying chest wall tissues ID on board, recommended to d/c abx since there is any clear source of infection at this time. On solumedrol Plan to wean off vent today Continue monitor in the ICU ACUTE RENAL FAILURE Creatinine on admission 7, last creatinine in [facility] was 1.1 in 2016 Had emergent HD done last night after failed medical therapy for hyperkalemia Nephrology on board No further HD for now, will continue monitor Avoid nephrotoxic agent Continue to hold ACEI Monitor BMP HYPERKALEMIA K was 6.6 on admission In the ER received calcium gluconate, insulin with dextrose, Kayexalate, Repeat K last night was 7.5 Underwent emergent HD K today 4.7 continue monitor BMP HYPOTENSION Possibly due to hypovolemia Hold lisinopril/ HCTZ Off levophed Echo pending BP stable Widened Mediastinum Seen on CXR Consider CT chest once stable Encephalopathy Elevated ammonia, hypoxia, CT head was negative Unable to assess now since pt is sedated on versed Plan to titrate off sedation and reeval DM TYPE 2 Hold metformin Novolog sliding scale coverage Anticipate rising BSG's while on IV steroids DEPRESSION Hold home meds while NPO DVT PROPHYLAXIS on heparin subq CODE STATUS FULL CODE Consultants: Nephrology ID Critical care Current Inpatient Medications: Current Inpatient Medications Medications (Trade) Dose Ordered Sig/Marcell Route Start Time Stop Time Status Last Admin Dose Admin Insulin Aspart (novoLOG ASPART) SLIDING SCALE If C... ACHS SC 11/20/16 21:00 12/20/16 20:59 Glucose (Glucose 40% Gel) 15-30 GRAMS 15 GRAMS... UD PRN PO 11/20/16 18:45 12/20/16 18:44 Glucose (Glucose Chew Tab) 4-8 Tablets 4 Tabl... UD PRN PO 11/20/16 18:45 12/20/16 18:44 Dextrose (Dextrose 50% 50ML Syringe) 25-50ML OF 50% DW IV FOR... UD PRN IV 11/20/16 18:45 12/20/16 18:44 Glucagon (Glucagon Inj) 1 mg UD PRN SQ 11/20/16 18:45 12/20/16 18:44 Sodium Chloride 1,000 ml @ 80 mls/hr [id number] IV 11/20/16 20:00 12/20/16 19:59 11/21/16 09:25 80 MLS/HR Fentanyl Citrate (Fentanyl Inj) 100 mcg Q1H PRN IV 11/20/16 20:00 12/04/16 19:59 11/20/16 19:30 100 MCG Pantoprazole Sodium 40 mg/ Syringe 10 ml @ 5 mls/min DAILY@1999 IV 11/20/16 20:00 12/20/16 19:59 11/20/16 21:01 5 MLS/MIN Norepinephrine Bitartrate 8 mg/ Dextrose 508 ml @ 0 mls/hr Q0M PRN IV 11/20/16 22:44 12/20/16 22:43 11/20/16 23:07 32 MLS/HR Heparin Sodium (Porcine) 7500 unit/Syringe 0.75 ml @ 0 mls/sec Q8H SC 11/21/16 10:00 12/21/16 09:59 11/21/16 10:15 5,000 MLS/SEC Midazolam HCl (Versed Inj) 2 mg Q1H PRN IV 11/21/16 10:00 12/21/16 09:59 Methylprednisolone Sodium Succinate 60 mg/Syringe 0.96 ml @ 1.5 mls/min Q8H IV 11/21/16 12:00 12/21/16 11:59 11/21/16 11:37 1.5 MLS/MIN Albuterol Sulfate (Ventolin 0.083% 2.5MG/3ML Neb) 2.5 mg Q6R INH 11/21/16 15:00 12/21/16 14:59 11/21/16 15:00 2.5 MG Ipratropium [place] (Atrovent 0.02% 0.5MG/2.5ML Neb) 0.5 mg Q6R INH 11/21/16 21:00 12/21/16 20:59 Insulin Aspart (novoLOG ASPART) SLIDING SCALE If C... TODAY@0200 ONCE SC 11/22/16 02:00 11/22/16 02:01 Insulin Glargine (Lantus Solostar Pen) See Protocol Text BID SC 11/21/16 21:00 12/21/16 20:59 Miscellaneous Information (Consult Glycemic Management Pharmacy) 1 ea UD PRN N/A 11/21/16 16:00 12/21/16 15:59
--- NOTE | 2016-11-21 17:57 | DIAGNOSTIC IMAGING REPORT ---
CT OF THE CHEST WITHOUT IV CONTRAST CLINICAL HISTORY: Respiratory failure. Widened mediastinum. COMPARISON STUDY: Chest CT June 22, 2010 and chest radiograph performed earlier today. CT DOSE: 3524.01 mGy.cm TECHNIQUE: Axial images of the chest were obtained without IV contrast. Images were reviewed in the axial, sagittal, and coronal planes. IV contrast was not administered for this examination. A dose lowering technique was utilized adhering to the principles of ALARA. No intravenous contrast was administered given relative renal insufficiency. FINDINGS: The endotracheal tube has been removed. Bilateral internal jugular central lines remain in place. The size of the heart is normal. There is extensive mediastinal fat which accounts for mediastinal widening on prior chest radiographs. The caliber of the thoracic aorta is normal, measuring 3.4 cm at the level of the main pulmonary artery. There is extensive coronary artery calcification, greater than expected for age. There is no evidence for intramural hematoma within the thoracic aorta. The sensitivity for detection of thoracic aortic dissection is diminished on this unenhanced exam but the caliber of the thoracic aorta is normal. Central airways are patent. There is mild bronchial wall thickening. Subpleural right lower lobe opacity suggest atelectasis. There is no pneumothorax. There is no thoracic lymphadenopathy. There is a trace right pleural effusion. Mild groundglass opacities within the lungs are noted. IMPRESSION: 1. No evidence of intramural hematoma within the thoracic aorta. Decreased sensitivity for detection of thoracic aortic dissection on this unenhanced exam but normal caliber thoracic aorta. 2. Mild multifocal ground glass opacities within the lungs. The findings could reflect pulmonary edema or an infectious process such as bronchopneumonia. No lobar consolidation. 3. Extensive coronary artery calcification, greater than expected for age. 4. Trace right pleural effusion. No pneumothorax. Electronically signed by: William Chang M.D. 11/21/2016 5:55 PM Dictated Date/Time: 11/21/2016 5:49 PM
--- NOTE | 2016-11-21 18:00 | DIAGNOSTIC IMAGING REPORT ---
CT SCAN OF THE ABDOMEN AND PELVIS WITHOUT CONTRAST CLINICAL HISTORY: Acute renal failure. Mediastinal widening. Possible dissection. COMPARISON STUDY: No previous studies for comparison. TECHNIQUE: CT scan of the abdomen and pelvis was performed from the lung bases to the proximal femurs. Images are reviewed in the axial, sagittal, and coronal planes. IV contrast was not administered for this examination. A dose lowering technique was utilized adhering to the principles of ALARA. CT DOSE: FINDINGS: Lower chest: There are bibasilar opacities, likely atelectatic. There is a trace right pleural effusion. Liver: The unenhanced liver is normal in size, contour, and attenuation. There is no intrahepatic biliary ductal dilatation. Gallbladder: Cholelithiasis Spleen: Normal in size and attenuation. Pancreas: Unremarkable. Adrenal glands: Unremarkable. Kidneys: No renal, ureteral, or bladder calculi are visualized. There is mild bilateral perinephric stranding. There is minimal fullness the right renal pelvis. There is no ureteral dilatation. Bowel: There are no transition zones indicate bowel obstruction. There are no findings to indicate acute appendicitis. There are no findings to indicate acute diverticulitis. Peritoneum: No free air is visualized. There is a small amount of pelvic fluid present. There is a fat-containing umbilical hernia. Vasculature: There is no evidence of abdominal aortic dilatation. Adenopathy: None. Pelvic viscera: There is indwelling Castañeda catheter. Skeletal structures: No destructive osseous lesions are seen. IMPRESSION: 1. No evidence of abdominal aortic dilatation 2. Bibasilar opacities likely atelectatic. Trace right pleural effusion 3. No evidence of bowel obstruction. No evidence of free air 4. Cholelithiasis 5. Minimal fullness the right renal collecting system. Mild perinephric stranding. No renal, ureteral, or bladder calculi identified 6. Fat-containing umbilical hernia 7. Small amount of free fluid within the pelvis Electronically signed by: Immanuel Taylor M.D. 11/21/2016 5:59 PM Dictated Date/Time: 11/21/2016 5:54 PM
[2016-11-21 18:30] LABS: BUN/CREATININE RATIO 18.9 (10-20); CALCIUM 8.4 mg/dl (8.5-10.1); CREATININE 2.4 mg/dl (0.60-1.40); MAGNESIUM 2.3 mg/dl (1.8-2.4); PHOSPHORUS 4.9 mg/dl (2.5-4.9); POTASSIUM 4.9 mmol/L (3.5-5.1)
[2016-11-21] MEDS: PANTOprazole INJ 40 MG in SYRINGE 0 ML IV SCH (19:47)
[2016-11-21] MEDS: IPRATROPIUM BROMIDE NEB SOLN 0.02% 2.5 ML VIAL INH SCH (20:27)
[2016-11-21] MEDS: INSULIN GLARGINE SOLOSTAR 100 UNITS/ML 3 ML PEN SC SCH (20:44)
[2016-11-21] MEDS ORDERED: INSULIN GLARGINE SOLOSTAR 100 UNITS/ML 3 ML PEN SC SCH (21:00)
[2016-11-22] VITALS (19 sets, daily range): BP systolic 110–155; BP diastolic 59–89; PULSE 76–96; TEMP 36.6–36.9; O2SAT 92–98
[2016-11-22] MEDS: ALBUTEROL 0.083% NEBU SOLN 3 ML VIAL INH SCH ×4 (01:49→20:02)
[2016-11-22] MEDS: IPRATROPIUM BROMIDE NEB SOLN 0.02% 2.5 ML VIAL INH SCH ×4 (01:49→20:02)
[2016-11-22] MEDS ORDERED: INSULIN ASPART 100 UNITS/ML 3 ML PEN SC ONE (02:00)
[2016-11-22] MEDS: HEPARIN SQ 5000 UNIT/0.5ML 7,500 UNIT in SYRINGE 0 ML SC SCH ×3 (02:11→18:04)
[2016-11-22] MEDS ORDERED: OXYCODONE/ACETAMINOPHEN 5-325 TAB PO PRN (02:30)
[2016-11-22] MEDS ORDERED: OXYCODONE/ACETAMINOPHEN 5-325 TAB ONE (02:37)
[2016-11-22] MEDS: METHYLPREDNISOLONE IV 60 MG in SYRINGE 0 ML IV SCH (04:14)
[2016-11-22 06:01] LABS: HEMATOCRIT 38.1 % (42-52); MEAN CELL VOLUME 90.7 fL (80-100); MEAN CORPUSCULAR HEMOGLOBIN 30.5 pg (25-34); MEAN CORPUSCULAR HGB CONC 33.6 g/dl (32-36); MEAN PLATELET VOLUME 9.9 fL (7.4-10.4); PLATELET COUNT 255 K/uL (130-400); WHITE BLOOD COUNT 13.38 K/uL (4.8-10.8)
[2016-11-22 06:34] LABS: BUN/CREATININE RATIO 29.1 (10-20); CALCIUM 8.2 mg/dl (8.5-10.1); CREATININE 1.7 mg/dl (0.60-1.40); MAGNESIUM 2.4 mg/dl (1.8-2.4); POTASSIUM 4.8 mmol/L (3.5-5.1)
[2016-11-22 06:38] LABS: PHOSPHORUS 3.3 mg/dl (2.5-4.9)
--- NOTE | 2016-11-22 06:42 | Nephrology Progress Note ---
Nephrology Progress Note Date of Service: Nov 22, 2016. Subjective 46 yo male with obesity, hypertension, diabetes who presented with copd exacerbation and found to have merry and hyperkalemia requiring emergent dialysis treatment. pt urinating well over 2 liters yesterday and creatinine continues to trend down. pt comfortable. ate dinner last night. has not had a bm yet since being admitted. passing gas. Objective Date Time Temp Pulse Resp B/P (MAP) Pulse Ox O2 Delivery O2 Flow Rate FiO2 11/22/16 04:00 Nasal Cannula 3.0 11/22/16 04:00 36.6 88 22 111/63 (79) 93 Nasal Cannula 3.0 11/22/16 03:00 94 23 115/62 (79) 92 Nasal Cannula 3.0 11/22/16 02:00 93 25 112/59 (76) 98 Nasal Cannula 3.0 11/22/16 01:50 96 18 96 Nasal Cannula 3.0 11/22/16 01:00 92 22 133/68 (89) 95 Nasal Cannula 3.0 11/22/16 00:00 36.6 96 18 110/72 (85) 94 Nasal Cannula 3.0 11/22/16 00:00 Nasal Cannula 3.0 11/21/16 22:00 102 25 113/81 (92) 93 Nasal Cannula 3.0 11/21/16 20:27 103 18 97 Nasal Cannula 5.0 11/21/16 20:00 Nasal Cannula 5.0 11/21/16 20:00 36.8 102 21 130/83 (99) 96 Nasal Cannula 5.0 11/21/16 18:01 99 21 119/75 (90) 96 Nasal Cannula 5.0 11/21/16 17:00 103 23 128/87 (101) 94 Oxymask 5.0 11/21/16 16:00 37.0 101 22 119/75 (90) 95 Oxymask 5.0 11/21/16 16:00 Oxymask 5.0 11/21/16 15:00 102 24 131/86 (101) 92 Oxymask 5.0 11/21/16 14:27 83 18 95 Mask 4.0 11/21/16 14:00 102 20 107/64 (78) 98 Oxymask 6.0 11/21/16 12:00 Mechanical Ventilator 40 11/21/16 12:00 40 11/21/16 12:00 37.4 102 20 134/73 (93) 98 Mechanical Ventilator 40 113/65 (81) 11/21/16 11:44 60 11/21/16 10:25 Mechanical Ventilator 40 11/21/16 10:00 71 21 140/87 (104) 98 Mechanical Ventilator 50 11/21/16 08:00 60 11/21/16 08:00 Mechanical Ventilator 60 11/21/16 08:00 37.0 81 20 134/73 (93) 100 Mechanical Ventilator 60 11/21/16 07:26 60 Physical Exam: General-aaox3, obese Eyes-no scleral icterus ENT-mmm Neck-supple Lungs-+end expiratory wheezing Heart-distant heart sounds Abdomen-bs+ s/nt/nd Extremities-no c/c/e Neuro-nonfocal Current Inpatient Medications Medications (Trade) Dose Ordered Sig/Marcell Route Start Time Stop Time Status Last Admin Dose Admin Insulin Aspart (novoLOG ASPART) SLIDING SCALE If C... ACHS SC 11/20/16 21:00 12/20/16 20:59 Glucose (Glucose 40% Gel) 15-30 GRAMS 15 GRAMS... UD PRN PO 11/20/16 18:45 12/20/16 18:44 Glucose (Glucose Chew Tab) 4-8 Tablets 4 Tabl... UD PRN PO 11/20/16 18:45 12/20/16 18:44 Dextrose (Dextrose 50% 50ML Syringe) 25-50ML OF 50% DW IV FOR... UD PRN IV 11/20/16 18:45 12/20/16 18:44 Glucagon (Glucagon Inj) 1 mg UD PRN SQ 11/20/16 18:45 12/20/16 18:44 Sodium Chloride 1,000 ml @ 80 mls/hr [id number] IV 11/20/16 20:00 12/20/16 19:59 11/21/16 20:42 80 MLS/HR Fentanyl Citrate (Fentanyl Inj) 100 mcg Q1H PRN IV 11/20/16 20:00 12/04/16 19:59 11/20/16 19:30 100 MCG Pantoprazole Sodium 40 mg/ Syringe 10 ml @ 5 mls/min DAILY@2000 IV 11/20/16 20:00 11/9/17 19:59 11/21/16 19:47 5 MLS/MIN Norepinephrine Bitartrate 8 mg/ Dextrose 508 ml @ 0 mls/hr Q0M PRN IV 11/20/16 22:44 12/20/16 22:43 11/20/16 23:07 32 MLS/HR Heparin Sodium (Porcine) 7500 unit/Syringe 0.75 ml @ 0 mls/sec Q8H SC 11/21/16 10:00 12/21/16 09:59 11/22/16 02:11 0.75 MLS/SEC Midazolam HCl (Versed Inj) 2 mg Q1H PRN IV 11/21/16 10:00 12/21/16 09:59 Methylprednisolone Sodium Succinate 60 mg/Syringe 0.96 ml @ 1.5 mls/min Q8H IV 11/21/16 12:00 12/21/16 11:59 11/22/16 04:14 1.5 MLS/MIN Albuterol Sulfate (Ventolin 0.083% 2.5MG/3ML Neb) 2.5 mg Q6R INH 11/21/16 15:00 12/21/16 14:59 11/22/16 01:49 2.5 MG Ipratropium [place] (Atrovent 0.02% 0.5MG/2.5ML Neb) 0.5 mg Q6R INH 11/21/16 21:00 12/21/16 20:59 11/22/16 01:49 0.5 MG Insulin Glargine (Lantus Solostar Pen) See Protocol Text BID SC 11/21/16 21:00 12/21/16 20:59 11/21/16 20:44 12 UNITS Miscellaneous Information (Consult Glycemic Management Pharmacy) 1 ea UD PRN N/A 11/21/16 16:00 12/21/16 15:59 Heparin Sodium (Porcine) (Heparin 10 Unit/ ml 5 ml Flush) 5 ml PRN PRN FLUSH 11/22/16 01:30 12/22/16 01:29 Oxycodone/ Acetaminophen (Percocet 5-325mg Tab) 1 tab Q6 PRN PO 11/22/16 02:30 12/06/16 02:29 Last 24 Hours Test 11/21/16 10:50 11/21/16 11:43 11/21/16 12:03 11/21/16 12:17 Urine Color YELLOW Urine Appearance CLEAR Urine pH 5.0 Urine Specific [place] 1.025 Urine Protein TRACE Urine Glucose (UA) NEG Urine Ketones NEG Urine Occult Blood 3+ Urine Nitrite NEG Urine Bilirubin NEG Urine Urobilinogen NEG Urine Leukocyte Esterase NEG Urine WBC (Auto) 1-5 /hpf Urine RBC (Auto) 5-10 /hpf Urine Hyaline Casts (Auto) 0 /lpf Urine Epithelial Cells (Auto) 0-5 /lpf Urine Bacteria (Auto) NEG Urine Random Creatinine 200.0 mg/dl Urine Random Total Protein 65.3 mg/dl Urine Random Sodium 40 mEq/L Urine Protein/Creatinine Ratio 0.3 Bedside Glucose 124 mg/dl Sodium Level 134 mmol/L Potassium Level 4.7 mmol/L Chloride Level 101 mmol/L Carbon Dioxide Level 24 mmol/L Anion Gap 9.0 mmol/L Blood Urea Nitrogen 47 mg/dl Creatinine 3.10 mg/dl Est Creatinine Clear Calc Drug Dose 46.7 ml/min Estimated GFR () 26.7 Estimated GFR (Non- 23.0 BUN/Creatinine Ratio 15.2 Random Glucose 128 mg/dl Calcium Level 8.6 mg/dl Phosphorus Level 5.2 mg/dl Magnesium Level 2.4 mg/dl Ammonia 38.3 umol/L Blood Gas Sample Site Art Line Bedside Blood Gas pH (LAB) 7.28 Bedside Blood Gas pCO2 (LAB) 52 mmHg Bedside Blood Gas pO2 (LAB) 98 mmHg Bedside Blood Gas HCO3 (LAB) 24 meq/L Bedside Blood Gas Total CO2 25 mEq/l Bedside Blood Gas Base Excess (LAB) -3.0 meq/L Bedside Blood Gas O2 Saturation 96.0 % Crispin Test NA Oxygen Delivery Device Ventilator Bedside FiO2 50 % Blood Gas PEEP 8 Test 11/21/16 16:57 11/21/16 17:58 11/21/16 20:40 11/22/16 02:09 Bedside Glucose 130 mg/dl 129 mg/dl 118 mg/dl Sodium Level 136 mmol/L Potassium Level 4.9 mmol/L Chloride Level 103 mmol/L Carbon Dioxide Level 26 mmol/L Anion Gap 7.0 mmol/L Blood Urea Nitrogen 45 mg/dl Creatinine 2.40 mg/dl Est Creatinine Clear Calc Drug Dose 60.3 ml/min Estimated GFR () 36.4 Estimated GFR (Non- 31.4 BUN/Creatinine Ratio 18.9 Random Glucose 128 mg/dl Calcium Level 8.4 mg/dl Phosphorus Level 4.9 mg/dl Magnesium Level 2.3 mg/dl Ammonia 32.0 umol/L Test 11/22/16 05:52 White Blood Count 13.38 K/uL Red Blood Count 4.20 M/uL Hemoglobin 12.8 g/dL Hematocrit 38.1 % Mean Corpuscular Volume 90.7 fL Mean Corpuscular Hemoglobin 30.5 pg Mean Corpuscular Hemoglobin Concent 33.6 g/dl RDW Standard Deviation 48.2 fL RDW Coefficient of Variation 14.6 % Platelet Count 255 K/uL Mean Platelet Volume 9.9 fL Sodium Level 135 mmol/L Potassium Level 4.8 mmol/L Chloride Level 102 mmol/L Carbon Dioxide Level 25 mmol/L Anion Gap 8.0 mmol/L Blood Urea Nitrogen 50 mg/dl Creatinine 1.70 mg/dl Est Creatinine Clear Calc Drug Dose 85.1 ml/min Estimated GFR () 55.2 Estimated GFR (Non- 47.6 BUN/Creatinine Ratio 29.1 Random Glucose 134 mg/dl Calcium Level 8.2 mg/dl Phosphorus Level 3.3 mg/dl Magnesium Level 2.4 mg/dl Assessment & Plan JWD-ihn-wgdlyiei-creatinine improving. continue low rate normal saline. tolerating it well. ok from renal perspective to remove temporary dialysis catheter. creatinine improved from 7 to 1.7 with baseline of 1.1. hyperkalemia-k levels improving. did require emergent dialysis on admission. no dialysis indicated at this time.
[2016-11-22] MEDS: INSULIN GLARGINE SOLOSTAR 100 UNITS/ML 3 ML PEN SC SCH ×2 (08:19→21:00)
--- NOTE | 2016-11-22 08:23 | Critical Care Progress Note ---
Critical Care Progress Note Date of Service Nov 22, 2016. ICU Day ICU Day Number: [address] Gonzalez Subjective Feels much better, does not have much memory of initial ICU admission. Objective Gen: No acute distress. HEENT: Head - normocephalic and atraumatic. Neck: Supple; no JVD, nuchal rigidity, cervical lymphadenopathy, or auscultated bruits. Bilateral central venous catheters Heart: Regular rate and rhythm. There is a normal S1 and S2 with no murmurs, clicks, or gallops appreciated. Lungs: Clear to auscultation bilaterally with no wheezes, rales, or rhonchi. Abdomen: Soft, completely nontender, nondistended, with good bowel sounds. There are no palpable pulsatile masses or hepatosplenomegaly. There is no guarding, rigidity, or rebound noted. Extremities: No evidence of cyanosis, clubbing, or edema. There are easily palpable peripheral pulses. Current SOFA Score SOFA Score Response (Comments) Value Platelets (x10) > 150 0 Bilirubin (mg/dL) < 1.2 0 Douglas Coma Score 15 0 Level of Hypotension No Hypotension 0 Creatinine (mg/dL) 1.2 - 1.9 1 Total 1 Previous SOFA Scores 3: 11/21/2016 Assessment & Plan PLAN: Neuro: Restarting Wellbutrin and Neurontin today Resp: Will require follow-up with primary care doc for possible elective sleep apnea evaluation, tobacco cessation education CV: Restarting Lipitor and baby aspirin Fluids/Renal: Discontinuing IV fluids, able to take meds orally. Discontinue Velázquez catheter ID: No evidence of active infection at this time GI/Nutrition: Diabetic diet, still holding metformin, will possibly restart tomorrow, insulin coverage and meantime Heme: Heparin 7500 3 times a day Endocrine: Insulin coverage, discontinuing steroids. Discontinuing central venous catheters and velázquez today. Physical and occupational therapy consult. Stable for downgraded out of ICU today. Consults & Procedures Consultants: Infectious Disease - Dr. French Nephrology - Dr. Barrientos Information Coordinator Procedures: Intubation - 11/20/16 Extubation - 11/21/16 Right HD Temp Cath Left IJ Triple Lumen Left Arterial Line Data Medications: Current Inpatient Medications Medications (Trade) Dose Ordered Sig/Marcell Route Start Time Stop Time Status Last Admin Dose Admin Insulin Aspart (novoLOG ASPART) SLIDING SCALE If C... ACHS SC 11/20/16 21:00 12/20/16 20:59 Glucose (Glucose 40% Gel) 15-30 GRAMS 15 GRAMS... UD PRN PO 11/20/16 18:45 12/20/16 18:44 Glucose (Glucose Chew Tab) 4-8 Tablets 4 Tabl... UD PRN PO 11/20/16 18:45 12/20/16 18:44 Dextrose (Dextrose 50% 50ML Syringe) 25-50ML OF 50% DW IV FOR... UD PRN IV 11/20/16 18:45 12/20/16 18:44 Glucagon (Glucagon Inj) 1 mg UD PRN SQ 11/20/16 18:45 12/20/16 18:44 Sodium Chloride 1,000 ml @ 80 mls/hr [id number] IV 11/20/16 20:00 12/20/16 19:59 11/21/16 20:42 80 MLS/HR Fentanyl Citrate (Fentanyl Inj) 100 mcg Q1H PRN IV 11/20/16 20:00 12/04/16 19:59 11/20/16 19:30 100 MCG Pantoprazole Sodium 40 mg/ Syringe 10 ml @ 5 mls/min DAILY@2000 IV 11/20/16 20:00 12/20/16 19:59 11/21/16 19:47 5 MLS/MIN Norepinephrine Bitartrate 8 mg/ Dextrose 508 ml @ 0 mls/hr Q0M PRN IV 11/20/16 22:44 12/20/16 22:43 11/20/16 23:07 32 MLS/HR Heparin Sodium (Porcine) 7500 unit/Syringe 0.75 ml @ 0 mls/sec Q8H SC 11/21/16 10:00 12/21/16 09:59 11/22/16 02:11 0.75 MLS/SEC Midazolam HCl (Versed Inj) 2 mg Q1H PRN IV 11/21/16 10:00 12/21/16 09:59 Methylprednisolone Sodium Succinate 60 mg/Syringe 0.96 ml @ 1.5 mls/min Q8H IV 11/21/16 12:00 12/21/16 11:59 11/22/16 04:14 1.5 MLS/MIN Albuterol Sulfate (Ventolin 0.083% 2.5MG/3ML Neb) 2.5 mg Q6R INH 11/21/16 15:00 12/21/16 14:59 11/22/16 07:24 2.5 MG Ipratropium [place] (Atrovent 0.02% 0.5MG/2.5ML Neb) 0.5 mg Q6R INH 11/21/16 21:00 12/21/16 20:59 11/22/16 07:24 0.5 MG Insulin Glargine (Lantus Solostar Pen) See Protocol Text BID SC 11/21/16 21:00 12/21/16 20:59 11/21/16 20:44 12 UNITS Miscellaneous Information (Consult Glycemic Management Pharmacy) 1 ea UD PRN N/A 11/21/16 16:00 12/21/16 15:59 Heparin Sodium (Porcine) (Heparin 10 Unit/ ml 5 ml Flush) 5 ml PRN PRN FLUSH 11/22/16 01:30 12/22/16 01:29 Oxycodone/ Acetaminophen (Percocet 5-325mg Tab) 1 tab Q6 PRN PO 11/22/16 02:30 12/06/16 02:29 Vital Signs: Date Time Temp Pulse Resp B/P (MAP) Pulse Ox O2 Delivery O2 Flow Rate FiO2 11/22/16 07:25 76 21 96 Nasal Cannula 3.0 11/22/16 06:00 79 22 126/80 (95) 95 Nasal Cannula 3.0 11/22/16 04:00 Nasal Cannula 3.0 11/22/16 04:00 36.6 88 22 111/63 (79) 93 Nasal Cannula 3.0 11/22/16 03:00 94 23 115/62 (79) 92 Nasal Cannula 3.0 11/22/16 02:00 93 25 112/59 (76) 98 Nasal Cannula 3.0 11/22/16 01:50 96 18 96 Nasal Cannula 3.0 11/22/16 01:00 92 22 133/68 (89) 95 Nasal Cannula 3.0 11/22/16 00:00 36.6 96 18 110/72 (85) 94 Nasal Cannula 3.0 11/22/16 00:00 Nasal Cannula 3.0 11/21/16 22:00 102 25 113/81 (92) 93 Nasal Cannula 3.0 11/21/16 20:27 103 18 97 Nasal Cannula 5.0 11/21/16 20:00 Nasal Cannula 5.0 11/21/16 20:00 36.8 102 21 130/83 (99) 96 Nasal Cannula 5.0 11/21/16 18:01 99 21 119/75 (90) 96 Nasal Cannula 5.0 11/21/16 17:00 103 23 128/87 (101) 94 Oxymask 5.0 11/21/16 16:00 37.0 101 22 119/75 (90) 95 Oxymask 5.0 11/21/16 16:00 Oxymask 5.0 11/21/16 15:00 102 24 131/86 (101) 92 Oxymask 5.0 11/21/16 14:27 83 18 95 Mask 4.0 11/21/16 14:00 102 20 107/64 (78) 98 Oxymask 6.0 11/21/16 12:00 Mechanical Ventilator 40 11/21/16 12:00 40 11/21/16 12:00 37.4 102 20 134/73 (93) 98 Mechanical Ventilator 40 113/65 (81) 11/21/16 11:44 60 11/21/16 10:25 Mechanical Ventilator 40 11/21/16 10:00 71 21 140/87 (104) 98 Mechanical Ventilator 50 Laboratory Results: Last 24 Hours Test 11/21/16 10:50 11/21/16 11:43 11/21/16 12:03 11/21/16 12:17 Urine Color YELLOW Urine Appearance CLEAR Urine pH 5.0 Urine Specific [place] 1.025 Urine Protein TRACE Urine Glucose (UA) NEG Urine Ketones NEG Urine Occult Blood 3+ Urine Nitrite NEG Urine Bilirubin NEG Urine Urobilinogen NEG Urine Leukocyte Esterase NEG Urine WBC (Auto) 1-5 /hpf Urine RBC (Auto) 5-10 /hpf Urine Hyaline Casts (Auto) 0 /lpf Urine Epithelial Cells (Auto) 0-5 /lpf Urine Bacteria (Auto) NEG Urine Random Creatinine 200.0 mg/dl Urine Random Total Protein 65.3 mg/dl Urine Random Sodium 40 mEq/L Urine Protein/Creatinine Ratio 0.3 Bedside Glucose 124 mg/dl Sodium Level 134 mmol/L Potassium Level 4.7 mmol/L Chloride Level 101 mmol/L Carbon Dioxide Level 24 mmol/L Anion Gap 9.0 mmol/L Blood Urea Nitrogen 47 mg/dl Creatinine 3.10 mg/dl Est Creatinine Clear Calc Drug Dose 46.7 ml/min Estimated GFR () 26.7 Estimated GFR (Non- 23.0 BUN/Creatinine Ratio 15.2 Random Glucose 128 mg/dl Calcium Level 8.6 mg/dl Phosphorus Level 5.2 mg/dl Magnesium Level 2.4 mg/dl Ammonia 38.3 umol/L Blood Gas Sample Site Art Line Bedside Blood Gas pH (LAB) 7.28 Bedside Blood Gas pCO2 (LAB) 52 mmHg Bedside Blood Gas pO2 (LAB) 98 mmHg Bedside Blood Gas HCO3 (LAB) 24 meq/L Bedside Blood Gas Total CO2 25 mEq/l Bedside Blood Gas Base Excess (LAB) -3.0 meq/L Bedside Blood Gas O2 Saturation 96.0 % Crispin Test NA Oxygen Delivery Device Ventilator Bedside FiO2 50 % Blood Gas PEEP 8 Test 11/21/16 16:57 11/21/16 17:58 11/21/16 20:40 11/22/16 02:09 Bedside Glucose 130 mg/dl 129 mg/dl 118 mg/dl Sodium Level 136 mmol/L Potassium Level 4.9 mmol/L Chloride Level 103 mmol/L Carbon Dioxide Level 26 mmol/L Anion Gap 7.0 mmol/L Blood Urea Nitrogen 45 mg/dl Creatinine 2.40 mg/dl Est Creatinine Clear Calc Drug Dose 60.3 ml/min Estimated GFR () 36.4 Estimated GFR (Non- 31.4 BUN/Creatinine Ratio 18.9 Random Glucose 128 mg/dl Calcium Level 8.4 mg/dl Phosphorus Level 4.9 mg/dl Magnesium Level 2.3 mg/dl Ammonia 32.0 umol/L Test 11/22/16 05:52 White Blood Count 13.38 K/uL Red Blood Count 4.20 M/uL Hemoglobin 12.8 g/dL Hematocrit 38.1 % Mean Corpuscular Volume 90.7 fL Mean Corpuscular Hemoglobin 30.5 pg Mean Corpuscular Hemoglobin Concent 33.6 g/dl RDW Standard Deviation 48.2 fL RDW Coefficient of Variation 14.6 % Platelet Count 255 K/uL Mean Platelet Volume 9.9 fL Sodium Level 135 mmol/L Potassium Level 4.8 mmol/L Chloride Level 102 mmol/L Carbon Dioxide Level 25 mmol/L Anion Gap 8.0 mmol/L Blood Urea Nitrogen 50 mg/dl Creatinine 1.70 mg/dl Est Creatinine Clear Calc Drug Dose 85.1 ml/min Estimated GFR () 55.2 Estimated GFR (Non- 47.6 BUN/Creatinine Ratio 29.1 Random Glucose 134 mg/dl Calcium Level 8.2 mg/dl Phosphorus Level 3.3 mg/dl Magnesium Level 2.4 mg/dl
[2016-11-22] MEDS: INSULIN ASPART 100 UNITS/ML 3 ML PEN SC SCH ×4 (08:27→21:00)
[2016-11-22] MEDS: BuPROPion SR 150 MG TABCR PO SCH ×2 (10:12→19:46)
--- NOTE | 2016-11-22 12:40 | Pharmacy Progress Note ---
Glycemic Control Progress Note Date of Service Nov 22, 2016. Scope Glycemic Pharmacist consulted for glycemic control to write orders per [facility] inpatient glycemic control protocol. Objective Accuchecks BSG (last 24hrs): Test 11/21/16 16:57 11/21/16 17:58 11/21/16 20:40 11/22/16 02:09 Bedside Glucose 130 mg/dl (70-99) 129 mg/dl (70-99) 118 mg/dl (70-99) Random Glucose 128 mg/dl (70-99) Test 11/22/16 05:52 11/22/16 10:56 Random Glucose 134 mg/dl (70-99) Bedside Glucose 117 mg/dl (70-99) HbA1c: Test 11/21/16 03:50 Hemoglobin A1c 6.6 % (4.5-5.6) H Recent Pertinent Medications Outpatient Anti-diabetic Regimen: * Metformin 500mg PO BID * A1c = 6.6 % 11/21/16 The patient is currently receiving: * Lantus: 30 units in the AM + 12 units in the PM yesterday * Novolog SQ Q 6 hrs * Goal range 140 - 180mg/dL * Correction factor 10mg/dL/unit * Carb ratio 1 unit per 4 grams carbs eaten Risk Factors for Insulin Resistance: * Steroids: Solu-Medrol 60mg IV Q 8 hrs --> d/c'd after 0400 dose * Diet: ordered T2DM diet, ate 28gm CHO this AM Outpatient Anti-Diabetic Meds Metformin 500mg PO BID Assessment & Plan ASSESSMENT: 11/21/16 * Type 2 diabetic, reasonably well controlled w/ metformin monotherapy - admitted with diarrhea, cough, SOB and increased sputum production; found to have NOEMY w/ hyperkalemia requiring hemodialysis. Also requiring intubation for hypoxemia. * Renal fxn appears to be improving based upon U.O. and SCr. Patient may be extubated later today. * IV insulin infusion + D10W initiated for management of hyperkalemia - both of which have been d/c'd this AM * BSGs ranged 140-150's on insulin infusion @10 units/hr + D10W at 75cc/hr * IV steroid therapy continues at this time. If he does begin enteral nutrition today he will likely become hyperglycemic without aggressive SQ regimen * Will begin a basal/bolus SQ regimen based upon an anticipated total daily insulin requirement of ~0.6+units/kg/day with current steroid dose 11/22/16 * Patient extubated yesterday, IV steroids stopped this AM, renal fxn improving...risk factors for insulin resistance decreasing * BSGs well controlled over the last 24 hrs: BSGs ranged 118-134 all while fasting and w/ 42 units of basal insulin on board * With lessening stressors, will begin to titrate insulin doses downward somewhat. Of note, he was well controlled w/ metformin monotherapy prior to admission * Continue Lantus BID w/ dosing scale to protect against hypoglycemia PLAN FOR INPATIENT GLYCEMIC CONTROL: * Lantus SQ BID: * BSG less than 100, give 0 units * BSG 100-139, give 12 units * BSG 140 or greater, give 25units * Change correction factor to 15 mg/dl/unit * Change carb ratio to 1 unit per 5 grams CHO consumed * Continue goal range Low 140 mg/dL - High 180 mg/dL * Please note that the plan above was derived based on current level of insulin resistance and hospital stress. These recommendations are appropriate for inpatient admission only. Plan of care upon discharge will need to be reassessed to avoid potential outpatient hypo/hyperglycemia. Thank you.
--- NOTE | 2016-11-22 13:56 | Progress Note ---
Medicine Progress Note Date & Time of Visit: Nov 22, 2016 at 13:35. Subjective Pt was seen and examined Lying in bed with no distress he was extubated yesterday He said that he feels much better denies any chest pain, palpitation, dizziness Objective Last 8 Hrs Date Time Temp Pulse Resp B/P (MAP) Pulse Ox O2 Delivery O2 Flow Rate FiO2 11/22/16 10:45 90 23 132/73 (92) 98 Nasal Cannula 3.0 11/22/16 10:30 91 155/79 (104) 11/22/16 10:15 91 18 155/79 (104) 97 Nasal Cannula 3.0 11/22/16 10:00 91 18 155/79 (104) 97 Nasal Cannula 3.0 11/22/16 10:00 95 24 132/89 (103) 93 Nasal Cannula 3.0 11/22/16 08:00 Oxymask 3.0 11/22/16 08:00 Nasal Cannula 11/22/16 08:00 36.7 96 16 134/78 (96) 96 Nasal Cannula 3.0 11/22/16 07:25 76 21 96 Nasal Cannula 3.0 11/22/16 06:00 79 22 126/80 (95) 95 Nasal Cannula 3.0 Physical Exam: General- no acute distress Head- atraumatic Eyes- PERRL ENT- intubated Neck- supple, no JVD Lungs- coarse bs Heart- regular rhythm Abdomen- normal bowel sounds Extremities- +edema Neuro- follow commands, speech fluent, no focal neuro deficit Skin- warm & dry Laboratory Results: Last 24 Hours Test 11/21/16 16:57 11/21/16 17:58 11/21/16 20:40 11/22/16 02:09 Bedside Glucose 130 mg/dl 129 mg/dl 118 mg/dl Sodium Level 136 mmol/L Potassium Level 4.9 mmol/L Chloride Level 103 mmol/L Carbon Dioxide Level 26 mmol/L Anion Gap 7.0 mmol/L Blood Urea Nitrogen 45 mg/dl Creatinine 2.40 mg/dl Est Creatinine Clear Calc Drug Dose 60.3 ml/min Estimated GFR () 36.4 Estimated GFR (Non- 31.4 BUN/Creatinine Ratio 18.9 Random Glucose 128 mg/dl Calcium Level 8.4 mg/dl Phosphorus Level 4.9 mg/dl Magnesium Level 2.3 mg/dl Ammonia 32.0 umol/L Test 11/22/16 05:52 11/22/16 10:56 White Blood Count 13.38 K/uL Red Blood Count 4.20 M/uL Hemoglobin 12.8 g/dL Hematocrit 38.1 % Mean Corpuscular Volume 90.7 fL Mean Corpuscular Hemoglobin 30.5 pg Mean Corpuscular Hemoglobin Concent 33.6 g/dl RDW Standard Deviation 48.2 fL RDW Coefficient of Variation 14.6 % Platelet Count 255 K/uL Mean Platelet Volume 9.9 fL Sodium Level 135 mmol/L Potassium Level 4.8 mmol/L Chloride Level 102 mmol/L Carbon Dioxide Level 25 mmol/L Anion Gap 8.0 mmol/L Blood Urea Nitrogen 50 mg/dl Creatinine 1.70 mg/dl Est Creatinine Clear Calc Drug Dose 85.1 ml/min Estimated GFR () 55.2 Estimated GFR (Non- 47.6 BUN/Creatinine Ratio 29.1 Random Glucose 134 mg/dl Calcium Level 8.2 mg/dl Phosphorus Level 3.3 mg/dl Magnesium Level 2.4 mg/dl Bedside Glucose 117 mg/dl Assessment & Plan ACUTE HYPOXIC RESPIRATORY FAILURE Related to COPD exacerbation Intubated on vent support sedated with versed Blood cultures pending received empirical abx that was d/c after procalcitonin was normal CXR on admission showed Mediastinal widening, possibly secondary to fat deposition Right basal airspace opacity versus overlying chest wall tissues ID on board, recommended to d/c abx since there is any clear source of infection at this time. On solumedrol Plan to wean off vent today Continue monitor in the ICU 11/22 S/P day 1 extubation Clinically improved Off sedation since yesterday blood cx and urine cx no growth IV solumedrol d/c will transfer to telemetry ACUTE RENAL FAILURE Creatinine on admission 7, last creatinine in [facility] was 1.1 in 2016 Had emergent HD done last night after failed medical therapy for hyperkalemia Nephrology on board No further HD for now, will continue monitor Avoid nephrotoxic agent Continue to hold ACEI Monitor BMP 11/22 Creatine continue to improve to 1.7 Dialysis catheter removed has good urinary output continue monitor BMP HYPERKALEMIA K was 6.6 on admission In the ER received calcium gluconate, insulin with dextrose, Kayexalate, Repeat K last night was 7.5 Underwent emergent HD K today 4.8 continue monitor BMP avoid nephrotoxic agent HYPOTENSION Possibly due to hypovolemia Hold lisinopril/ HCTZ Off levophed BP started to elevated will add low dose hydralazine prn ECHO done showed * The study was technically limited. * The left ventricular ejection fraction is grossly normal. * Grossly normal valvular structure and function. Widened Mediastinum Seen on CXR CT chest showed no evidence of intramural hematoma within the thoracic aorta. Decreased sensitivity for detection of thoracic aortic dissection on this unenhanced exam but normal caliber thoracic aorta. Encephalopathy Elevated ammonia, hypoxia, CT head was negative Unable to assess now since pt is sedated on versed Plan to titrate off sedation and reeval 11/22 Off sedation yesterday mental status is at baseline Resolved DM TYPE 2 Hold metformin Novolog sliding scale coverage Anticipate rising BSG's while on IV steroids IV Solumedrol was d/c DEPRESSION will resume home psych med DVT PROPHYLAXIS on heparin subq CODE STATUS FULL CODE DISPOSITION will transfer to Telemetry Consultants: Nephrology ID Critical care Current Inpatient Medications: Current Inpatient Medications Medications (Trade) Dose Ordered Sig/Marcell Route Start Time Stop Time Status Last Admin Dose Admin Insulin Aspart (novoLOG ASPART) SLIDING SCALE If C... ACHS SC 11/20/16 21:00 12/20/16 20:59 11/22/16 12:37 12 UNITS Glucose (Glucose 40% Gel) 15-30 GRAMS 15 GRAMS... UD PRN PO 11/20/16 18:45 12/20/16 18:44 Glucose (Glucose Chew Tab) 4-8 Tablets 4 Tabl... UD PRN PO 11/20/16 18:45 12/20/16 18:44 Dextrose (Dextrose 50% 50ML Syringe) 25-50ML OF 50% DW IV FOR... UD PRN IV 11/20/16 18:45 12/20/16 18:44 Glucagon (Glucagon Inj) 1 mg UD PRN SQ 11/20/16 18:45 12/20/16 18:44 Heparin Sodium (Porcine) 7500 unit/Syringe 0.75 ml @ 0 mls/sec Q8H SC 11/21/16 10:00 12/21/16 09:59 11/22/16 10:11 5,000 MLS/SEC Albuterol Sulfate (Ventolin 0.083% 2.5MG/3ML Neb) 2.5 mg Q6R INH 11/21/16 15:00 12/21/16 14:59 11/22/16 07:24 2.5 MG Ipratropium [employer] (Atrovent 0.02% 0.5MG/2.5ML Neb) 0.5 mg Q6R INH 11/21/16 21:00 12/21/16 20:59 11/22/16 07:24 0.5 MG Insulin Glargine (Lantus Solostar Pen) See Protocol Text BID SC 11/21/16 21:00 12/21/16 20:59 11/22/16 08:19 12 UNITS Miscellaneous Information (Consult Glycemic Management Pharmacy) 1 ea UD PRN N/A 11/21/16 16:00 12/21/16 15:59 Oxycodone/ Acetaminophen (Percocet 5-325mg Tab) 1 tab Q6 PRN PO 11/22/16 02:30 12/06/16 02:29 11/22/16 08:18 1 TAB Aspirin (Ecotrin Tab) 81 mg QAM PO 11/22/16 14:00 12/22/16 13:59 Atorvastatin Calcium (Lipitor Tab) 40 mg QAM PO 11/23/16 09:00 12/23/16 08:59 Gabapentin (Neurontin Cap) 300 mg TID PO 11/22/16 14:00 12/22/16 13:59 Bupropion HCl (Wellbutrin-Sr Tab) 150 mg BID PO 11/22/16 11:00 12/22/16 10:59 11/22/16 10:12 150 MG
[2016-11-22] MEDS: ASPIRIN 81 MG ECTAB PO SCH (13:59)
[2016-11-22] MEDS: GABAPENTIN 300 MG CAP PO SCH ×2 (13:59→19:46)
[2016-11-23] VITALS (12 sets, daily range): BP systolic 99–141; BP diastolic 72–88; PULSE 77–99; TEMP 36.4–36.8; O2SAT 90–96
[2016-11-23] MEDS: HEPARIN SQ 5000 UNIT/0.5ML 7,500 UNIT in SYRINGE 0 ML SC SCH ×3 (01:53→17:46)
[2016-11-23 05:49] LABS: HEMATOCRIT 39.3 % (42-52); MEAN CELL VOLUME 92.7 fL (80-100); MEAN CORPUSCULAR HGB CONC 32.3 g/dl (32-36); MEAN PLATELET VOLUME 9.8 fL (7.4-10.4); PLATELET COUNT 254 K/uL (130-400); RED BLOOD COUNT 4.24 M/uL (4.7-6.1); WHITE BLOOD COUNT 12.66 K/uL (4.8-10.8)
[2016-11-23 06:21] LABS: BUN/CREATININE RATIO 35.8 (10-20); CALCIUM 8.6 mg/dl (8.5-10.1); CREATININE 1.5 mg/dl (0.60-1.40); MAGNESIUM 2.5 mg/dl (1.8-2.4); POTASSIUM 4.6 mmol/L (3.5-5.1)
[2016-11-23] MEDS: INSULIN ASPART 100 UNITS/ML 3 ML PEN SC SCH ×4 (06:26→20:16)
[2016-11-23] MEDS: ALBUT/IPRATROP 3MG/0.5MG NEB 3 ML VIAL INH SCH ×4 (07:28→18:59)
--- NOTE | 2016-11-23 09:22 | Progress Note ---
Subjective Date of Service: Nov 23, 2016. Subjective abx stopped, pt remains afebrile. all cultures negative. for likely transfer from ICU. remains stable off of abx. Problem List Medical Problems: (1) Acute kidney injury Status: Acute (2) Acute renal failure Status: Acute (3) Hyperkalemia Status: Acute (4) Respiratory failure with hypercapnia Status: Acute (5) Sepsis Status: Acute Objective Vital Signs Date Time Temp Pulse Resp B/P (MAP) Pulse Ox O2 Delivery O2 Flow Rate FiO2 11/23/16 07:29 83 20 94 Mask 3.0 11/23/16 06:00 92 23 121/80 (94) 90 Room Air 11/23/16 05:00 81 16 141/88 (105) 95 Room Air 11/23/16 04:00 36.8 77 17 111/76 (88) 96 Room Air 11/23/16 04:00 Room Air 11/23/16 00:01 Room Air 11/23/16 00:01 36.4 85 16 99/74 (82) 91 Room Air 11/22/16 20:03 92 20 92 Nasal Cannula 3.0 11/22/16 20:00 Room Air 11/22/16 19:50 36.8 82 16 119/74 (89) 95 Room Air 11/22/16 16:00 36.9 78 20 129/80 (96) 96 Room Air 11/22/16 16:00 Room Air 11/22/16 14:14 88 20 93 Room Air 11/22/16 14:05 93 11/22/16 12:00 Nasal Cannula 3.0 11/22/16 12:00 36.7 89 20 144/84 (104) 96 Nasal Cannula 3.0 11/22/16 10:45 90 23 132/73 (92) 98 Nasal Cannula 3.0 11/22/16 10:30 91 155/79 (104) 11/22/16 10:15 91 18 155/79 (104) 97 Nasal Cannula 3.0 11/22/16 10:00 91 18 155/79 (104) 97 Nasal Cannula 3.0 11/22/16 10:00 95 24 132/89 (103) 93 Nasal Cannula 3.0 Laboratory Results Item Value Date Time Blood Culture - Preliminary Resulted 11/20/16 1640 Blood NO GROWTH TO DATE. Blood Culture - Preliminary Resulted 11/20/16 1540 Blood NO GROWTH TO DATE. Last 24 Hours Test 11/22/16 10:56 11/22/16 16:20 11/22/16 21:02 11/23/16 05:25 Bedside Glucose 117 mg/dl 94 mg/dl 76 mg/dl White Blood Count 12.66 K/uL Red Blood Count 4.24 M/uL Hemoglobin 12.7 g/dL Hematocrit 39.3 % Mean Corpuscular Volume 92.7 fL Mean Corpuscular Hemoglobin 30.0 pg Mean Corpuscular Hemoglobin Concent 32.3 g/dl RDW Standard Deviation 50.0 fL RDW Coefficient of Variation 14.9 % Platelet Count 254 K/uL Mean Platelet Volume 9.8 fL Sodium Level 137 mmol/L Potassium Level 4.6 mmol/L Chloride Level 103 mmol/L Carbon Dioxide Level 26 mmol/L Anion Gap 8.0 mmol/L Blood Urea Nitrogen 54 mg/dl Creatinine 1.50 mg/dl Est Creatinine Clear Calc Drug Dose 95.5 ml/min Estimated GFR () 64.2 Estimated GFR (Non- 55.4 BUN/Creatinine Ratio 35.8 Random Glucose 84 mg/dl Calcium Level 8.6 mg/dl Phosphorus Level 4.0 mg/dl Magnesium Level 2.5 mg/dl Test 11/23/16 06:21 Bedside Glucose 83 mg/dl Assessment and Plan (1) Leukocytosis Assessment & Plan: likely reactive, agree to follow off of abx. all cultures negative. will sign off. please call with questions.
[2016-11-23] MEDS: ASPIRIN 81 MG ECTAB PO SCH (09:47)
[2016-11-23] MEDS: BuPROPion SR 150 MG TABCR PO SCH ×2 (09:48→19:53)
[2016-11-23] MEDS: ATORVASTATIN 40 MG TAB PO SCH (09:48)
[2016-11-23] MEDS: GABAPENTIN 300 MG CAP PO SCH ×3 (09:48→19:53)
--- NOTE | 2016-11-23 10:02 | Pharmacy Progress Note ---
Glycemic Control Progress Note Date of Service Nov 23, 2016. Scope Glycemic Pharmacist consulted for glycemic control to write orders per [facility] inpatient glycemic control protocol. Objective Accuchecks BSG (last 24hrs): Test 11/22/16 10:56 11/22/16 16:20 11/22/16 21:02 11/23/16 05:25 Bedside Glucose 117 mg/dl (70-99) 94 mg/dl (70-99) 76 mg/dl (70-99) Random Glucose 84 mg/dl (70-99) Test 11/23/16 06:21 Bedside Glucose 83 mg/dl (70-99) HbA1c: Test 11/21/16 03:50 Hemoglobin A1c 6.6 % (4.5-5.6) H Recent Pertinent Medications Outpatient Anti-diabetic Regimen: * Metformin 500mg PO BID * A1c = 6.6 % 11/21/16 The patient is currently receiving: * Lantus: SQ BID: 0 units if BSG less than 100; 12 units if BSG 100-139, 25 units if BSG 140 or greater * Novolog SQ Q 6 hrs * Goal range 140 - 180mg/dL * Correction factor 10mg/dL/unit * Carb ratio 1 unit per 4 grams carbs eaten Risk Factors for Insulin Resistance: * Diet: ordered T2DM diet and appears to be tolerating well Assessment & Plan ASSESSMENT: 11/21/16 * Type 2 diabetic, reasonably well controlled w/ metformin monotherapy - admitted with diarrhea, cough, SOB and increased sputum production; found to have NOEMY w/ hyperkalemia requiring hemodialysis. Also requiring intubation for hypoxemia. * Renal fxn appears to be improving based upon U.O. and SCr. Patient may be extubated later today. * IV insulin infusion + D10W initiated for management of hyperkalemia - both of which have been d/c'd this AM * BSGs ranged 140-150's on insulin infusion @10 units/hr + D10W at 75cc/hr * IV steroid therapy continues at this time. If he does begin enteral nutrition today he will likely become hyperglycemic without aggressive SQ regimen * Will begin a basal/bolus SQ regimen based upon an anticipated total daily insulin requirement of ~0.6+units/kg/day with current steroid dose 11/22/16 * Patient extubated yesterday, IV steroids stopped this AM, renal fxn improving...risk factors for insulin resistance decreasing * BSGs well controlled over the last 24 hrs: BSGs ranged 118-134 all while fasting and w/ 42 units of basal insulin on board * With lessening stressors, will begin to titrate insulin doses downward somewhat. Of note, he was well controlled w/ metformin monotherapy prior to admission * Continue Lantus BID w/ dosing scale to protect against hypoglycemia 11/23/16 * BSGs have ranged 76-117 over the last 24 hrs. * He is clearly more insulin sensitive now that steroid therapy has been stopped * Will d/c the basal insulin at this time and lessen correction and prandial doses to lessen risk of hypoglycemia * Renal fxn continues to improve. Best estimate of CrCl > 60cc/min at this time. No IV contrast was given recently. Will restart metformin this evening. PLAN FOR INPATIENT GLYCEMIC CONTROL: * D/C Lantus * Change correction factor to 25 mg/dl/unit * Change carb ratio to 1 unit per 9 grams CHO consumed * Change goal range to Low 120 mg/dL - High 150 mg/dL * Restart metformin this evening * Please note that the plan above was derived based on current level of insulin resistance and hospital stress. These recommendations are appropriate for inpatient admission only. Plan of care upon discharge will need to be reassessed to avoid potential outpatient hypo/hyperglycemia. Thank you.
--- NOTE | 2016-11-23 11:49 | Progress Note ---
Medicine Progress Note Date & Time of Visit: Nov 23, 2016 at 11:42. Subjective Pt was seen and examined Lying in bed with no distress Pt said that he feels much better He said that he is breathing seems to improve Pt said denies any chest pain, palpitation, dizziness and sob Objective Last 8 Hrs Date Time Temp Pulse Resp B/P (MAP) Pulse Ox O2 Delivery O2 Flow Rate FiO2 11/23/16 11:12 87 20 90 Room Air 11/23/16 10:43 36.5 89 20 129/85 (100) 91 Room Air 11/23/16 08:00 36.7 91 16 117/72 (87) 95 Nasal Cannula 3.0 11/23/16 07:29 83 20 94 Mask 3.0 11/23/16 06:00 92 23 121/80 (94) 90 Room Air 11/23/16 05:00 81 16 141/88 (105) 95 Room Air 11/23/16 04:00 36.8 77 17 111/76 (88) 96 Room Air 11/23/16 04:00 Room Air Physical Exam: General- no acute distress Head- atraumatic Eyes- PERRL ENT- intubated Neck- supple, no JVD Lungs- No wheezing Heart- regular rhythm Abdomen- normal bowel sounds Extremities- +edema Neuro- follow commands, speech fluent, no focal neuro deficit Skin- warm & dry Laboratory Results: Last 24 Hours Test 11/22/16 16:20 11/22/16 21:02 11/23/16 05:25 11/23/16 06:21 Bedside Glucose 94 mg/dl 76 mg/dl 83 mg/dl White Blood Count 12.66 K/uL Red Blood Count 4.24 M/uL Hemoglobin 12.7 g/dL Hematocrit 39.3 % Mean Corpuscular Volume 92.7 fL Mean Corpuscular Hemoglobin 30.0 pg Mean Corpuscular Hemoglobin Concent 32.3 g/dl RDW Standard Deviation 50.0 fL RDW Coefficient of Variation 14.9 % Platelet Count 254 K/uL Mean Platelet Volume 9.8 fL Sodium Level 137 mmol/L Potassium Level 4.6 mmol/L Chloride Level 103 mmol/L Carbon Dioxide Level 26 mmol/L Anion Gap 8.0 mmol/L Blood Urea Nitrogen 54 mg/dl Creatinine 1.50 mg/dl Est Creatinine Clear Calc Drug Dose 95.5 ml/min Estimated GFR () 64.2 Estimated GFR (Non- 55.4 BUN/Creatinine Ratio 35.8 Random Glucose 84 mg/dl Calcium Level 8.6 mg/dl Phosphorus Level 4.0 mg/dl Magnesium Level 2.5 mg/dl Test 11/23/16 11:06 Bedside Glucose 83 mg/dl Assessment & Plan ACUTE HYPOXIC RESPIRATORY FAILURE Related to COPD exacerbation Intubated on vent support sedated with versed Blood cultures pending received empirical abx that was d/c after procalcitonin was normal CXR on admission showed Mediastinal widening, possibly secondary to fat deposition Right basal airspace opacity versus overlying chest wall tissues ID on board, recommended to d/c abx since there is any clear source of infection at this time. On solumedrol Plan to wean off vent today Continue monitor in the ICU 11/23 S/P day 2 extubation Clinically improved blood cx and urine cx no growth IV solumedrol d/c will transfer to medical Pt said that he has appointment coming to get sleep study done Not on any home med for his resp will get overnight oximetry tonight 2 step exercise on discharge ACUTE RENAL FAILURE Creatinine on admission 7, last creatinine in [facility] was 1.1 in 2016 Had emergent HD done last night after failed medical therapy for hyperkalemia Nephrology on board No further HD for now, will continue monitor Avoid nephrotoxic agent Continue to hold ACEI Monitor BMP 11/22 Creatine continue to improve to 1.5 today Dialysis catheter removed has good urinary output continue monitor BMP HYPERKALEMIA K was 6.6 on admission In the ER received calcium gluconate, insulin with dextrose, Kayexalate, Repeat K last night was 7.5 Underwent emergent HD K today 4.6 continue monitor BMP avoid nephrotoxic agent HYPOTENSION Possibly due to hypovolemia Hold lisinopril/ HCTZ Off levophed BP started to elevated will add low dose hydralazine prn ECHO done showed * The study was technically limited. * The left ventricular ejection fraction is grossly normal. * Grossly normal valvular structure and function. Widened Mediastinum Seen on CXR CT chest showed no evidence of intramural hematoma within the thoracic aorta. Decreased sensitivity for detection of thoracic aortic dissection on this unenhanced exam but normal caliber thoracic aorta. Encephalopathy Elevated ammonia, hypoxia, CT head was negative Unable to assess now since pt is sedated on versed Plan to titrate off sedation and reeval 11/23 Off sedation yesterday mental status is at baseline Resolved DM TYPE 2 Hold metformin Novolog sliding scale coverage Anticipate rising BSG's while on IV steroids IV Solumedrol was d/c DEPRESSION will resume home psych med DVT PROPHYLAXIS on heparin subq CODE STATUS FULL CODE DISPOSITION will transfer to Telemetry Consultants: Nephrology ID Critical care Current Inpatient Medications: Current Inpatient Medications Medications (Trade) Dose Ordered Sig/Marcell Route Start Time Stop Time Status Last Admin Dose Admin Insulin Aspart (novoLOG ASPART) SLIDING SCALE If C... ACHS SC 11/20/16 21:00 12/20/16 20:59 11/22/16 18:03 8 UNITS Glucose (Glucose 40% Gel) 15-30 GRAMS 15 GRAMS... UD PRN PO 11/20/16 18:45 12/20/16 18:44 Glucose (Glucose Chew Tab) 4-8 Tablets 4 Tabl... UD PRN PO 11/20/16 18:45 12/20/16 18:44 Dextrose (Dextrose 50% 50ML Syringe) 25-50ML OF 50% DW IV FOR... UD PRN IV 11/20/16 18:45 12/20/16 18:44 Glucagon (Glucagon Inj) 1 mg UD PRN SQ 11/20/16 18:45 12/20/16 18:44 Heparin Sodium (Porcine) 7500 unit/Syringe 0.75 ml @ 0 mls/sec Q8H SC 11/21/16 10:00 12/21/16 09:59 11/23/16 09:51 5,000 MLS/SEC Miscellaneous Information (Consult Glycemic Management Pharmacy) 1 ea UD PRN N/A 11/21/16 16:00 12/21/16 15:59 Oxycodone/ Acetaminophen (Percocet 5-325mg Tab) 1 tab Q6 PRN PO 11/22/16 02:30 12/06/16 02:29 11/22/16 08:18 1 TAB Aspirin (Ecotrin Tab) 81 mg QAM PO 11/22/16 14:00 12/22/16 13:59 11/23/16 09:47 81 MG Atorvastatin Calcium (Lipitor Tab) 40 mg QAM PO 11/23/16 09:00 12/23/16 08:59 11/23/16 09:48 40 MG Gabapentin (Neurontin Cap) 300 mg TID PO 11/22/16 14:00 12/22/16 13:59 11/23/16 09:48 300 MG Bupropion HCl (Wellbutrin-Sr Tab) 150 mg BID PO 11/22/16 11:00 12/22/16 10:59 11/23/16 09:48 150 MG Albuterol/ Ipratropium (Duoneb) 3 ml QIDR INH 11/23/16 08:00 12/23/16 07:59 11/23/16 11:07 3 ML Insulin Aspart (novoLOG ASPART) SLIDING SCALE If C... ACHS SC 11/24/16 06:30 12/24/16 06:44 Metformin HCl (Glucophage Tab) 500 mg BIDM PO 11/23/16 16:30 12/23/16 16:29
[2016-11-23] MEDS ORDERED: SERTRALINE HCL 100 MG TAB PO ONE (12:30)
[2016-11-23] MEDS: METFORMIN HCL 500 MG TAB PO SCH (17:44)
[2016-11-24] MEDS: HEPARIN SQ 5000 UNIT/0.5ML 7,500 UNIT in SYRINGE 0 ML SC SCH ×2 (02:00→10:00)
[2016-11-24 06:34] LABS: HEMATOCRIT 38.9 % (42-52); MEAN CELL VOLUME 91.7 fL (80-100); MEAN CORPUSCULAR HEMOGLOBIN 30.2 pg (25-34); MEAN CORPUSCULAR HGB CONC 32.9 g/dl (32-36); MEAN PLATELET VOLUME 9.7 fL (7.4-10.4); PLATELET COUNT 251 K/uL (130-400); RED BLOOD COUNT 4.24 M/uL (4.7-6.1); WHITE BLOOD COUNT 9.98 K/uL (4.8-10.8)
[2016-11-24 06:57] VITALS: PULSE 89; O2SAT 93
[2016-11-24] MEDS: ALBUT/IPRATROP 3MG/0.5MG NEB 3 ML VIAL INH SCH ×3 (06:57→15:01)
[2016-11-24 07:40] VITALS: BP 115/65; PULSE 82; TEMP 36.4; O2SAT 96
[2016-11-24 08:00] VITALS: O2SAT 96
[2016-11-24] MEDS: INSULIN ASPART 100 UNITS/ML 3 ML PEN SC SCH ×2 (08:17→13:06)
[2016-11-24] MEDS: GABAPENTIN 300 MG CAP PO SCH ×2 (08:18→14:35)
[2016-11-24] MEDS: ATORVASTATIN 40 MG TAB PO SCH (08:18)
[2016-11-24] MEDS: METFORMIN HCL 500 MG TAB PO SCH (08:19)
[2016-11-24] MEDS: ASPIRIN 81 MG ECTAB PO SCH (08:19)
[2016-11-24] MEDS: BuPROPion SR 150 MG TABCR PO SCH (08:19)
[2016-11-24 08:37] LABS: BUN/CREATININE RATIO 33.9 (10-20); CALCIUM 8.9 mg/dl (8.5-10.1); CREATININE 1.4 mg/dl (0.60-1.40); MAGNESIUM 2.4 mg/dl (1.8-2.4); POTASSIUM 4.2 mmol/L (3.5-5.1)
[2016-11-24] MEDS ORDERED: SERTRALINE HCL 100 MG TAB PO SCH (09:00)
[2016-11-24 11:07] VITALS: PULSE 74; O2SAT 94
--- NOTE | 2016-11-24 12:46 | Progress Note ---
Medicine Progress Note Date & Time of Visit: Nov 24, 2016 at 12:18. Subjective Pt was seen and examined Sitting at the edge of the bed with no distress Pt said that his breathing feels better He is comfortable on room air Pt said that he schedule to see a specialist this month for possible his breathing? pt said that before coming to the hospital he was not on any inhaler for his breathing but he said that he was starting to have SOB with exertion he had a 2 step exercise done that qualified him for oxygen He had a nocturnal oximetry done as well last night denies any chest pain, palpitation, dizziness Objective Last 8 Hrs Date Time Temp Pulse Resp B/P (MAP) Pulse Ox O2 Delivery O2 Flow Rate FiO2 11/24/16 11:07 74 16 94 Room Air 11/24/16 08:00 96 Room Air 11/24/16 07:40 36.4 82 20 115/65 (82) 96 11/24/16 06:57 89 16 93 Room Air 11/24/16 05:33 Room Air Physical Exam: General- no acute distress Head- atraumatic Eyes- PERRL ENT- intubated Neck- supple, no JVD Lungs- poor air entry Heart- regular rhythm Abdomen- normal bowel sounds Extremities- +edema Neuro- follow commands, speech fluent, no focal neuro deficit Skin- warm & dry Laboratory Results: Last 24 Hours Test 11/23/16 16:20 11/23/16 20:01 11/24/16 06:03 11/24/16 07:21 Bedside Glucose 81 mg/dl 90 mg/dl 81 mg/dl White Blood Count 9.98 K/uL Red Blood Count 4.24 M/uL Hemoglobin 12.8 g/dL Hematocrit 38.9 % Mean Corpuscular Volume 91.7 fL Mean Corpuscular Hemoglobin 30.2 pg Mean Corpuscular Hemoglobin Concent 32.9 g/dl RDW Standard Deviation 49.2 fL RDW Coefficient of Variation 14.6 % Platelet Count 251 K/uL Mean Platelet Volume 9.7 fL Sodium Level 135 mmol/L Potassium Level 4.2 mmol/L Chloride Level 102 mmol/L Carbon Dioxide Level 26 mmol/L Anion Gap 8.0 mmol/L Blood Urea Nitrogen 48 mg/dl Creatinine 1.40 mg/dl Est Creatinine Clear Calc Drug Dose 102.3 ml/min Estimated GFR () 69.8 Estimated GFR (Non- 60.3 BUN/Creatinine Ratio 33.9 Random Glucose 86 mg/dl Calcium Level 8.9 mg/dl Magnesium Level 2.4 mg/dl Test 11/24/16 11:02 Bedside Glucose 72 mg/dl Assessment & Plan ACUTE HYPOXIC RESPIRATORY FAILURE Related to COPD exacerbation Intubated on vent support sedated with versed Blood cultures pending received empirical abx that was d/c after procalcitonin was normal CXR on admission showed Mediastinal widening, possibly secondary to fat deposition Right basal airspace opacity versus overlying chest wall tissues ID on board, recommended to d/c abx since there is any clear source of infection at this time. On solumedrol Plan to wean off vent today Continue monitor in the ICU 11/23 S/P day 2 extubation Clinically improved blood cx and urine cx no growth IV solumedrol d/c will transfer to medical Pt said that he has appointment coming to get sleep study done Not on any home med for his resp will get overnight oximetry tonight 2 step exercise on discharge 11/24 S/P day 3 extubation blood cx and urine cx no growth 2 step exercise done yesterday qualified pt for oxygen Overnight nocturnal oximetry done last night also qualified pt for oxygen Will need to get a sleep study done as an outpatient Not on any inhaler at home will consult pulmonary before discharge home will give case management assistant script for oxygen ACUTE RENAL FAILURE Creatinine on admission 7, last creatinine in [facility] was 1.1 in 2016 Had emergent HD done last night after failed medical therapy for hyperkalemia Nephrology on board No further HD for now, will continue monitor Avoid nephrotoxic agent Continue to hold ACEI Monitor BMP 11/24 Creatine continue to improve to 1.4 today Dialysis catheter removed has good urinary output continue monitor BMP avoid nephrotoxic agents resolved HYPERKALEMIA K was 6.6 on admission In the ER received calcium gluconate, insulin with dextrose, Kayexalate, Repeat K last night was 7.5 Underwent emergent HD K today 4.2 continue monitor BMP avoid nephrotoxic agent Resolved TOBACCO ABUSE Counseling on smoking cessation HYPOTENSION Possibly due to hypovolemia Hold lisinopril/ HCTZ Off levophed BP started to elevated will add low dose hydralazine prn Stable ECHO done showed * The study was technically limited. * The left ventricular ejection fraction is grossly normal. * Grossly normal valvular structure and function. Widened Mediastinum Seen on CXR CT chest showed no evidence of intramural hematoma within the thoracic aorta. Decreased sensitivity for detection of thoracic aortic dissection on this unenhanced exam but normal caliber thoracic aorta. Encephalopathy Elevated ammonia, hypoxia, CT head was negative Unable to assess now since pt is sedated on versed Plan to titrate off sedation and reeval 11/24 Off sedation mental status is at baseline Resolved DM TYPE 2 Recent Hba1c 6.6 on 11/21/16 metformin on hold Novolog sliding scale coverage Stable DEPRESSION Continue home psych med DVT PROPHYLAXIS on heparin subq CODE STATUS FULL CODE DISPOSITION Will discharge when medically stable Consultants: Nephrology ID Critical care Current Inpatient Medications: Current Inpatient Medications Medications (Trade) Dose Ordered Sig/Marcell Route Start Time Stop Time Status Last Admin Dose Admin Glucose (Glucose 40% Gel) 15-30 GRAMS 15 GRAMS... UD PRN PO 11/20/16 18:45 12/20/16 18:44 Glucose (Glucose Chew Tab) 4-8 Tablets 4 Tabl... UD PRN PO 11/20/16 18:45 12/20/16 18:44 Dextrose (Dextrose 50% 50ML Syringe) 25-50ML OF 50% DW IV FOR... UD PRN IV 11/20/16 18:45 12/20/16 18:44 Glucagon (Glucagon Inj) 1 mg UD PRN SQ 11/20/16 18:45 12/20/16 18:44 Heparin Sodium (Porcine) 7500 unit/Syringe 0.75 ml @ 0 mls/sec Q8H SC 11/21/16 10:00 12/21/16 09:59 11/23/16 09:51 5,000 MLS/SEC Miscellaneous Information (Consult Glycemic Management Pharmacy) 1 ea UD PRN N/A 11/21/16 16:00 12/21/16 15:59 Oxycodone/ Acetaminophen (Percocet 5-325mg Tab) 1 tab Q6 PRN PO 11/22/16 02:30 12/06/16 02:29 11/22/16 08:18 1 TAB Aspirin (Ecotrin Tab) 81 mg QAM PO 11/22/16 14:00 12/22/16 13:59 11/24/16 08:19 81 MG Atorvastatin Calcium (Lipitor Tab) 40 mg QAM PO 11/23/16 09:00 12/23/16 08:59 11/24/16 08:18 40 MG Gabapentin (Neurontin Cap) 300 mg TID PO 11/22/16 14:00 12/22/16 13:59 11/24/16 08:18 300 MG Bupropion HCl (Wellbutrin-Sr Tab) 150 mg BID PO 11/22/16 11:00 12/22/16 10:59 11/24/16 08:19 150 MG Albuterol/ Ipratropium (Duoneb) 3 ml QIDR INH 11/23/16 08:00 12/23/16 07:59 11/24/16 11:06 3 ML Insulin Aspart (novoLOG ASPART) SLIDING SCALE If C... ACHS SC 11/24/16 06:30 12/24/16 06:44 Sertraline HCl (Zoloft Tab) 200 mg QAM PO 11/24/16 09:00 12/24/16 08:59 11/24/16 08:18 200 MG Metformin HCl (Glucophage Tab) 500 mg QDB PO 11/25/16 08:00 12/25/16 07:59
--- NOTE | 2016-11-24 12:58 | Pharmacy Progress Note ---
Glycemic: Assessment & Plan Date of Service Nov 24, 2016. Assessment & Plan The patient is currently receiving 10 units of insulin per day. BSGs ranging 72 - 91 mg/dl over the past 24hrs. * Basal insulin: NONE * Correctional Insulin: Novolog Correction per scale ACHS Goal Range: Low 120 mg/dL - High 150 mg/dL Correction Factor: 25 mg/dL/unit * Prandial insulin: NONE * Oral agents: Metformin 500 mg BID BSGs slightly on the lower end Has not required insulin since dinner last night Will plan to reduce metformin to just once daily while an inpatient Pharmacy will continue to monitor patient daily and write orders per [facility] inpatient glycemic control protocol. Thanks. DISCHARGE RECOMMENDATIONS: * A1c indicates excellent outpatient control * SCr has improved from admission * Continue metformin 500 mg BID
[2016-11-24 14:49] LABS: ALLEN TEST POS (POS); ARTERIAL BLD GAS O2 SATURATION 93.8 % (90-95); ARTERIAL BLOOD GAS HCO3 27 mmol/L (19-24); ARTERIAL BLOOD GAS PO2 74 mm/Hg (80-95); ARTERIAL BLOOD GAS pH 7.46 (7.35-7.45); O2 ADMINISTRATION ROOM AIR
[2016-11-24 15:01] VITALS: PULSE 81; O2SAT 95
[2016-11-24 16:05] VITALS: BP 115/65; PULSE 81; TEMP 36.4; O2SAT 95
--- NOTE | 2016-11-24 16:21 | Pulmonary Consultation ---
History General Date of Service: Nov 24, 2016. Stated Complaint: Hyperkalemia, Renal Failure HPI The patient is a 46 year old male who presents to [facility] with complaints of Hyperkalemia, Renal Failure. The patient's primary care provider is Syed Wolff M.D.([facility]). Mr. Lemus is 46-year-old morbidly obese male with a BMI of 56, hypertension, hyperlipidemia, type 2 diabetes, anxiety who presented accompanied by sister on 11/20/2016 with complaints of increased confusion at work. Prior to admission he complained of increased daytime somnolence secondary to trouble sleeping at night due frequent nighttime awakenings. He also complained of dizziness associated with falling. Of note he had increased shortness of breath, dyspnea at rest, worsened with dyspnea on exertion, chest tightness, wheezing and productive cough with whitish to yellowish sputum. He denied any fevers, chills chest pain or upper respiratory symptoms. Initial vital signs upon presentation showed temperature 36.5, pulse 109, respiratory rate 22, blood pressure 146/73 saturating 87% on room air. His initial exam showed that he was in moderate respiratory distress, wheezing throughout with use of accessory muscles of respiration. He was placed on 4 L nasal cannula with improvement of SaO2 to 91% later placed on BiPAP. Initial laboratory data showed a white blood cell count of 15, hemoglobin 13. Sodium 129, potassium 6.6, bicarbonate 19, BUN of 66, creatinine of 7. BNP 4492 , troponin less than 0.015. His initial VBG prior to intubation showed a pH of 7.19/59/38/52/less than 60%. He was given azithromycin, vancomycin and Zosyn, Solu-Medrol 125 mg for possible COPD exacerbation as well as calcium gluconate and insulin for hyperkalemia. He was admitted to ICU for acute hypoxemic hypercapnic respiratory failure , but further decompensated and was intubated. Initial EKG was showed sinus tachycardia with right bundle branch block. Urine culture from 11/20/2016 shows less than 1000 colonies. Blood cultures show no growth to date.Sputum cultures drawn. MRSA surveillance screen negative for MRSA. History of previous wound infection seen by ID dating back to 2011. TTE was done that showed no gross valvular abnormalities with satisfactory EF. Right ventricle was difficult to visualize. On 11/21/2016 he was extubated to about 5-6 L nasal cannula. He was later transferred to the medical floor on 11/22/2016 and been doing quite well on the floor. He had a two step done and met criteria for O2 with exertion. Patient had an overnight oximetry done on 11/24/2016 in preparation for discharge, which showed 113 events with a pulse oximetry less than 90%There are 42 events between 89-85%, 49 events between 84-80% and 31 events between 79-75% . 2 events were between 74-70%. Pulmonary as was consulted for MEHRDAD/OHS syndrome. Historian: patient, other (EMR) Onset: just prior to arrival Severity: severe Complaint Status: improved Review of Systems Constitutional: reports: as stated in HPI Eyes: reports: as stated in HPI ENT: reports: as stated in HPI Cardiovascular: reports: as stated in HPI Respiratory: reports: as stated in HPI Gastrointestinal: reports: as stated in HPI Genitourinary - Male: reports: as stated in HPI Musculoskeletal: reports: as stated in HPI Integumentary: reports: as stated in HPI Neurologic: reports: as stated in HPI Psychiatric: reports: as stated in HPI Endocrine: as stated in HPI Hematologic / Lymphatic: as stated in HPI Allergic / Immunologic: as stated in HPI All Other Symptoms All Other Systems: Reviewed and Negative Past Medical History Past Medical History: Morbid obesity BMI 56 Diabetes, type II Hypertension hyperkalemia Hyperlipidemia Renal failure Tobacco use disorder Depression/anxiety Past Medical History: depression, hypertension, other Past Surgical History: History of foot and back surgery Past Surgical History: orthopedic surgery Family History FH: CAD (coronary artery disease) MOTHER FH: cancer FATHER (prostate) Mother has history of coronary artery disease Father has history of cancer of the prostate Parent: Diabetes, Heart Disease Social History Is a current every day smoker smoking about 15 cigarettes per day. About 22- pack-year history of smoking. He denies any alcohol use or illicit drug use Lives alone. Hx Tobacco Use In Past Year?: Yes Smoking Status: Current Every Day Smoker Alcohol: socially Drug Use: none Marital status: single Immunizations History of Influenza Vaccine: Unknown History of Tetanus Vaccine?: Unknown History of Pneumococcal: Unknown History of Hepatitis B Vaccine: No Allergies Coded Allergies: No Known Allergies (Unverified , 11/20/16) Current Medications Reported Home Medications Medications Dose Route/Sig Max Daily Dose Days Date Category Zoloft (Sertraline HCl) 100 Mg Tab 200 Mg PO DAILY 11/21/16 Reported Percocet 10MG/325MG (Oxycodone/Acetaminophen 10MG/325MG) 1 Tab Tab 1 Tab PO TID PRN 30 11/21/16 Reported Glucophage (Metformin Hcl) 1,000 Mg Tab 1 Tab PO BID 30 11/21/16 Reported Gabapentin 300 Mg Cap 300 Mg PO TID 11/21/16 Reported Wellbutrin Sr (Bupropion Hcl) 150 Mg Tab 1 Tab PO BID 30 11/21/16 Reported Atorvastatin Calcium (Atorvastatin) 40 Mg Tab 40 Mg PO DAILY 11/21/16 Reported Elavil (Amitriptyline HCl) 50 Mg Tab 50 Mg PO HS 11/21/16 Reported Aspirin Ec (Aspirin) 81 Mg Tab 81 Mg PO DAILY 11/20/16 Reported Valtrex (Valacyclovir Hcl) 1 Gm Tab 1 Gm PO BID 11/21/16 Reported Physical Physical Exam Vital Signs: Date Time Temp Pulse Resp B/P (MAP) Pulse Ox O2 Delivery O2 Flow Rate FiO2 11/24/16 11:07 74 16 94 Room Air 11/24/16 08:00 96 Room Air 11/24/16 07:40 36.4 82 20 115/65 (82) 96 11/24/16 06:57 89 16 93 Room Air 11/24/16 05:33 Room Air 11/24/16 00:00 Room Air 11/23/16 23:42 36.5 99 20 123/78 (93) 93 Room Air 11/23/16 19:01 86 16 92 Room Air 11/23/16 16:00 Room Air Nasal Cannula 11/23/16 15:24 88 20 90 Room Air 11/23/16 15:00 36.7 92 18 115/75 (88) 91 General Appearance: WELL-APPEARING, WD/WN, NO APPARENT DISTRESS, obese Head: NORMOCEPHALIC, ATRAUMATIC Eyes: PERRLA, NO DISCHARGE, SCLERAE NORMAL, CONJUNCTIVAE NORMAL ENT: NORMAL THROAT EXAM (Mallampati IV) Neck: NORMAL RANGE OF MOTION, NO TENDERNESS, other (Short thick neck) Respiratory: BREATH SOUNDS NORMAL, CLEAR TO AUSCULTATION, CLEAR TO PERCUSSION Cardiovasular: REGULAR RATE/RHYTHM, NORMAL S1S2, NO M/G/R Abdomen: NON TENDER, NORMAL BOWEL SOUNDS, NO REBOUND, other (Obese) Back: NORMAL INSPECTION, NO MIDLINE TENDERNESS, NO CVA TENDERNESS Upper Extremities: NO EDEMA, NO DEFORMITY, NORMAL ROM Lower Extremities: NO EDEMA, NO DEFORMITY, NORMAL ROM Pulses: dorsalis pedis (R) (2+), dorsalis pedis (L) (2+) Neuro: ALERT, ORIENTED x 3, NORMAL MOTOR EXAM, NORMAL SENSATION, NORMAL MEMORY Reflexes: biceps (R) Psychiatric: NORMAL AFFECT, NO SUICIDAL IDEATION, CONTRACTS FOR SAFETY Diagnostics Labs Results Past 24 Hours Test 11/23/16 16:20 11/23/16 20:01 11/24/16 06:03 11/24/16 07:21 Range/Units Bedside Glucose 81 90 81 70-99 mg/dl White Blood Count 9.98 4.8-10.8 K/uL Red Blood Count 4.24 4.7-6.1 M/uL Hemoglobin 12.8 14.0-18.0 g/dL Hematocrit 38.9 42-52 % Mean Corpuscular Volume 91.7 80-100 fL Mean Corpuscular Hemoglobin 30.2 25-34 pg Mean Corpuscular Hemoglobin Concent 32.9 32-36 g/dl RDW Standard Deviation 49.2 36.4-46.3 fL RDW Coefficient of Variation 14.6 11.5-14.5 % Platelet Count 251 130-400 K/uL Mean Platelet Volume 9.7 7.4-10.4 fL Sodium Level 135 136-145 mmol/L Potassium Level 4.2 3.5-5.1 mmol/L Chloride Level 102 98-107 mmol/L Carbon Dioxide Level 26 21-32 mmol/L Anion Gap 8.0 3-11 mmol/L Blood Urea Nitrogen 48 7-18 mg/dl Creatinine 1.40 0.60-1.40 mg/dl Est Creatinine Clear Calc Drug Dose 102.3 ml/min Estimated GFR () 69.8 Estimated GFR (Non- 60.3 BUN/Creatinine Ratio 33.9 10-20 Random Glucose 86 70-99 mg/dl Calcium Level 8.9 8.5-10.1 mg/dl Magnesium Level 2.4 1.8-2.4 mg/dl Test 11/24/16 11:02 Range/Units Bedside Glucose 72 70-99 mg/dl Diagnostic Radiology CT abdomen and pelvis 11/21/2016 IMPRESSION: 1. No evidence of abdominal aortic dilatation 2. Bibasilar opacities likely atelectatic. Trace right pleural effusion 3. No evidence of bowel obstruction. No evidence of free air 4. Cholelithiasis 5. Minimal fullness the right renal collecting system. Mild perinephric stranding. No renal, ureteral, or bladder calculi identified 6. Fat-containing umbilical hernia 7. Small amount of free fluid within the pelvis CT chest 11/21/2016 IMPRESSION: 1. No evidence of intramural hematoma within the thoracic aorta. Decreased sensitivity for detection of thoracic aortic dissection on this unenhanced exam but normal caliber thoracic aorta. 2. Mild multifocal ground glass opacities within the lungs. The findings could reflect pulmonary edema or an infectious process such as bronchopneumonia. No lobar consolidation. 3. Extensive coronary artery calcification, greater than expected for age. 4. Trace right pleural effusion. No pneumothorax. CHEST ONE VIEW PORTABLE 11/21/2016 HISTORY: Intubation COMPARISON: Chest 11/20/2016. FINDINGS: Endotracheal tube terminates 4.5 cm from the florencio. Remaining lines and tubes remain unchanged in position. No pneumothorax. The heart and mediastinum remain enlarged. Mild pulmonary edema. Right basilar densities persist. IMPRESSION: 1. Satisfactory support line placement. 2. Mild pulmonary edema and right basilar densities persist. 3. No change in the mediastinal and cardiac enlargement. CHEST ONE VIEW PORTABLE. 11/21/2016 HISTORY: Right HD Cath and Left CVL Placement COMPARISON: Chest 11/20/2016. FINDINGS: The endotracheal tube terminates approximately 3.5 cm from the florencio. Nasogastric tube terminates below the diaphragm. The tip is not included on this study. Left jugular central venous catheter and right jugular central venous catheter remaining at the expected location of the SVC. No pneumothorax. Persistent mediastinal widening.. Small bilateral pleural effusions and bibasilar densities, right greater than left persist. Mild central pulmonary vascular congestion without overt edema. IMPRESSION: 1. Satisfactory support line placement. 2. No definite pneumothorax. 3. Bibasilar densities and small bilateral pleural effusions persist. 4. Persistent mediastinal widening. CHEST ONE VIEW PORTABLE 11/20/2016 CLINICAL HISTORY: respiratory failure COMPARISON STUDY: 11/20/2016 FINDINGS: The examination is limited from a technical standpoint secondary to the patient's very large body habitus. This tracheal tube is been placed which is 32 mm above the florencio. A nasogastric tube is also been placed which appears to extend to the stomach. The heart is enlarged. There is mediastinal widening. There are right basilar airspace opacities.[ IMPRESSION: 1. Technically limited study secondary to patient's large body habitus 2. Endotracheal tube 32 mm above the florencio 3. Right basilar airspace opacities, atelectatic versus inflammatory 4. Faint visualization of a nasogastric tube which appears to extend to the stomach 5. Stable cardiomegaly and mediastinal widening BILATERAL LOWER EXTREMITY VENOUS DOPPLER 11/20/2016 HISTORY: Leg weakness. COMPARISON STUDY: None. FINDINGS: There is normal compressibility, flow, and augmentation within the bilateral lower extremity deep venous systems. Bilateral greater saphenous veins are not identified and may be due to prior vein stripping IMPRESSION: No DVT within the right or left lower extremity. TTE from 2016 TTE from 11/21/2016 * -- Conclusions -- * The study was technically limited. * The left ventricular ejection fraction is grossly normal. * Grossly normal valvular structure and function. * RV difficult to visualize EKG EKG on admission showed normal sinus rhythm 100 bpm Right bundle-branch block, left posterior fascicular block. Impression Assessment and Plan Morbid obesity Obesity hypoventilation syndrome MEHRDAD ? COPD Tobacco use disorder Anxiety depression Hypoxemic respiratory failure The patient presented with a component of hypercapnic hypoxemic respiratory failure in the setting of acute renal failure he could not compensate adequately and subsequently had to be intubated. This may have been precipitated by a an acute upper respiratory infection versus use of anxiolytics and narcotics for pain, anxiety and depression. He also has history of tobacco use disorder and may have a component of COPD. However his chest imaging is more suggestive of a restrictive process due to his significant obesity. His hypoxia may be also secondary to compressive atelectasis. He does meet two step requirement for oxygen for exertion. He did have an overnight oximetry which showed about 113 events with desaturations less than 88 %. This is very concerning and suggestive of obstructive sleep apnea. He should avoid operating heavy machinery, alcohol or sedatives until official diagnosis of obstructive sleep apnea is made and he has received adequate treatment. Consider sending TSH to rule out hypothyroidism. He will likely require oxygen therapy at night and ultimately should have a official sleep study and as outpatient severity to have CPAP titration to alleviate obstructions. We discussed weight loss and diet as is a major contributing factor for most of his medical problems. Encouraged smoking cessation. I ordered ABG to evaluate for hypercapnia. He may be a candidate for BiPAP upon discharge. I appreciate the consult. He should definitely follow with pulmonary as an outpatient at least 5-10 days post hospital discharge.
[2016-11-24] MEDS ORDERED: LISI-787 PO (17:12)
--- NOTE | 2016-11-24 17:26 | Discharge Instructions ---
Discharge Instructions Date of Service Nov 24, 2016. Admission Reason for Admission: Hyperkalemia, Renal Failure Discharge Discharge Diagnosis / Problem: ACUTE HYPOXIC RESPIRATORY FAILURE, HYPERKALEMIA , ACUTE KIDNEY FAILURE Discharge Goals Goal(s): Decrease discomfort, Improve function, Improve disease control Activity Recommendations Activity Limitations: resume your previous activity ( TOLERATED) . Instructions / Follow-Up Instructions / Follow-Up Follow up with your primary care provider Dr. Wolff on 11/28 @ 10:05 am Follow up with pulmonology in 1-2 weeks (please call to schedule appointment) Continue 2 L oxygen supplement with ambulation and at night (during sleep) Case management arranged for the home oxygen You will need an official sleep study and as outpatient severity to have CPAP titration to alleviate obstructions. You should avoid operating heavy machinery, alcohol or sedatives agents such as narcotic and benzodiazepines until official diagnosis of obstructive sleep apnea is made and you receive adequate treatment. Counseling on smoking cessation Counseling on weight loss and diet avoid nephrotoxic agents Continue monitor your blood pressure and bring blood pressure log at your next follow up appointment with Dr. Wolff. Hold Lisinopril/Hydrochlorothiazide for now until seeing your primary care provider ( Dr. Wolff will let you know when to resume it) Current Hospital Diet Patient's current hospital diet: Diabetes Type 2 Diet, Low Potassium Diet (2g K) Discharge Diet Recommended Diet: Diabetes Type 2 Diet Pending Studies Studies pending at discharge: no Laboratory Results Hemoglobin A1c Test 11/21/16 03:50 Range/Units Estimated Average Glucose 143 mg/dl Hemoglobin A1c 6.6 H 4.5-5.6 % Medical Emergencies . Who to Call and When: Medical Emergencies: If at any time you feel your situation is an emergency, please call 911 immediately. . Non-Emergent Contact Non-Emergency issues call your: Primary Care Provider Call Non-Emergent contact if: you have any medication questions . . "Provider Documentation" section prepared by Jun Viveros. . VTE Core Measure Inpt VTE Proph given/why not?: Unfractionated heparin SQ
[2016-11-25] MEDS ORDERED: METFORMIN HCL 500 MG TAB PO SCH (08:00)
--- NOTE | 2016-11-26 07:50 | Discharge Summary ---
Discharge Summary Date of Service Nov 26, 2016. Discharge Summary Admission Date: Nov 20, 2016 at 17:46 Discharge Date: Nov 24, 2016 Discharge Disposition: Home with services Principal Diagnosis: ACUTE HYPOXIC RESPIRATORY FAILURE Secondary Diagnoses/Problems: HYPERKALEMIA, ACUTE KIDNEY FAILURE TOBACCO USE HYPOTENSION ENCEPHALOPATHY DM TYPE 2 DEPRESSION Procedures: CT SCAN OF THE ABDOMEN AND PELVIS WITHOUT CONTRAST CLINICAL HISTORY: Acute renal failure. Mediastinal widening. Possible dissection. COMPARISON STUDY: No previous studies for comparison. TECHNIQUE: CT scan of the abdomen and pelvis was performed from the lung bases to the proximal femurs. Images are reviewed in the axial, sagittal, and coronal planes. IV contrast was not administered for this examination. A dose lowering technique was utilized adhering to the principles of ALARA. CT DOSE: FINDINGS: Lower chest: There are bibasilar opacities, likely atelectatic. There is a trace right pleural effusion. Liver: The unenhanced liver is normal in size, contour, and attenuation. There is no intrahepatic biliary ductal dilatation. Gallbladder: Cholelithiasis Spleen: Normal in size and attenuation. Pancreas: Unremarkable. Adrenal glands: Unremarkable. Kidneys: No renal, ureteral, or bladder calculi are visualized. There is mild bilateral perinephric stranding. There is minimal fullness the right renal pelvis. There is no ureteral dilatation. Bowel: There are no transition zones indicate bowel obstruction. There are no findings to indicate acute appendicitis. There are no findings to indicate acute diverticulitis. Peritoneum: No free air is visualized. There is a small amount of pelvic fluid present. There is a fat-containing umbilical hernia. Vasculature: There is no evidence of abdominal aortic dilatation. Adenopathy: None. Pelvic viscera: There is indwelling Castañeda catheter. Skeletal structures: No destructive osseous lesions are seen. IMPRESSION: 1. No evidence of abdominal aortic dilatation 2. Bibasilar opacities likely atelectatic. Trace right pleural effusion 3. No evidence of bowel obstruction. No evidence of free air 4. Cholelithiasis 5. Minimal fullness the right renal collecting system. Mild perinephric stranding. No renal, ureteral, or bladder calculi identified 6. Fat-containing umbilical hernia 7. Small amount of free fluid within the pelvis Electronically signed by: Immanuel Taylor M.D. 11/21/2016 5:59 PM Dictated Date/Time: 11/21/2016 5:[address] OF THE CHEST WITHOUT IV CONTRAST CLINICAL HISTORY: Respiratory failure. Widened mediastinum. COMPARISON STUDY: Chest CT June 22, 2010 and chest radiograph performed earlier today. CT DOSE: 3524.01 mGy.cm TECHNIQUE: Axial images of the chest were obtained without IV contrast. Images were reviewed in the axial, sagittal, and coronal planes. IV contrast was not administered for this examination. A dose lowering technique was utilized adhering to the principles of ALARA. No intravenous contrast was administered given relative renal insufficiency. FINDINGS: The endotracheal tube has been removed. Bilateral internal jugular central lines remain in place. The size of the heart is normal. There is extensive mediastinal fat which accounts for mediastinal widening on prior chest radiographs. The caliber of the thoracic aorta is normal, measuring 3.4 cm at the level of the main pulmonary artery. There is extensive coronary artery calcification, greater than expected for age. There is no evidence for intramural hematoma within the thoracic aorta. The sensitivity for detection of thoracic aortic dissection is diminished on this unenhanced exam but the caliber of the thoracic aorta is normal. Central airways are patent. There is mild bronchial wall thickening. Subpleural right lower lobe opacity suggest atelectasis. There is no pneumothorax. There is no thoracic lymphadenopathy. There is a trace right pleural effusion. Mild groundglass opacities within the lungs are noted. IMPRESSION: 1. No evidence of intramural hematoma within the thoracic aorta. Decreased sensitivity for detection of thoracic aortic dissection on this unenhanced exam but normal caliber thoracic aorta. 2. Mild multifocal ground glass opacities within the lungs. The findings could reflect pulmonary edema or an infectious process such as bronchopneumonia. No lobar consolidation. 3. Extensive coronary artery calcification, greater than expected for age. 4. Trace right pleural effusion. No pneumothorax. Electronically signed by: William Chang M.D. 11/21/2016 5:55 PM Dictated Date/Time: 11/21/2016 5:49 PM CHEST ONE VIEW PORTABLE CLINICAL HISTORY: Shortness of breath COMPARISON STUDY: 06/22/2010 FINDINGS: The study is significantly limited secondary to the patient's body habitus. The heart is enlarged. There is mediastinal widening, possibly secondary to mediastinal fat deposition. There are hazy bibasilar opacities. While likely relating to overlying soft tissue, a right basal airspace opacity cannot be excluded. A PA and lateral study is recommended in follow-up.[ IMPRESSION: 1. Technically limited study 2. Mild cardiomegaly 3. Mediastinal widening, possibly secondary to fat deposition 4. Right basal airspace opacity versus overlying chest wall tissues. A PA and lateral study should be considered in follow-up. Electronically signed by: Immanuel Taylor M.D. 11/20/2016 5:07 PM Dictated Date/Time: 11/20/2016 5:05 PM BILATERAL LOWER EXTREMITY VENOUS DOPPLER HISTORY: Leg weakness. COMPARISON STUDY: None. FINDINGS: There is normal compressibility, flow, and augmentation within the bilateral lower extremity deep venous systems. Bilateral greater saphenous veins are not identified and may be due to prior vein stripping IMPRESSION: No DVT within the right or left lower extremity. Electronically signed by: Arnaud Aguilera M.D. 11/21/2016 7:15 AM Dictated Date/Time: 11/21/2016 7:[address] HEAD WITHOUT CONTRAST (CT) CLINICAL HISTORY: Acute change in mental status COMPARISON STUDY: No previous studies for comparison. TECHNIQUE: Axial CT of the brain is performed from the vertex to the skull base. IV contrast was not administered for this examination. A dose lowering technique was utilized adhering to the principles of ALARA. CT DOSE: 1035.81 mGycm FINDINGS: No intra or extra-axial mass lesions are visualized. There is no CT evidence of acute cortical infarction. There is no evidence of midline shift. There is no acute hemorrhage. No calvarial fractures are visualized. There is no evidence of pathologic ventricular dilatation. There is no evidence of acute sinusitis IMPRESSION: No acute intracranial findings Electronically signed by: Immanuel Taylor M.D. 11/20/2016 8:43 PM Dictated Date/Time: 11/20/2016 8:42 PM Consultations: Nephrology ID Critical care Medication Reconciliation Continued Medications: Amitriptyline Hcl (Elavil) 50 Mg Tab 50 MG PO HS, TAB Aspirin (Aspirin Ec) 81 Mg Tab 81 MG PO DAILY Atorvastatin (Atorvastatin Calcium) 40 Mg Tab 40 MG PO DAILY Bupropion Hcl (Wellbutrin Sr) 150 Mg Tab 1 TAB PO BID for 30 Days, #60 TAB 5 Refills Gabapentin (Gabapentin) 300 Mg Cap 300 MG PO TID Lisinopril/Hctz (Zestoretic 20MG/12.5MG) Tab 1 TAB PO DAILY, TAB Metformin Hcl (Glucophage) 1,000 Mg Tab 1 TAB PO BID for 30 Days, #60 TAB 5 Refills Sertraline (Zoloft) 100 Mg Tab 200 MG PO DAILY, TAB Valacyclovir Hcl (Valtrex) 1 Gm Tab 1 GM PO BID, #21 TAB Discontinued Medications: Oxycodone/Acetaminophen 10MG/325MG (Percocet 10MG/325MG) 1 Tab Tab 1 TAB PO TID PRN for Pain for 30 Days, #90 TAB Admission Information HPI (per Admitting provider): This is a 46 y/o male with PMH of DM 2, HTN, morbid obesity, depression, chronic smoker, and other problems listed below who presents to the ED with shortness of breath. Pt reports 2 week history of SOB which worsens with talking , movement, and supine position. He reports associated cough with yellow sputum , dizziness, 2 falls out of bed overnight. He reports chronic diarrhea with 2-3 liquid BM per day. States bilateral LE edema is unchanged from baseline. He reports chronic diarrhea 2-3 episodes per day. Last voided at 3:30 pm today. Denies fever, chills, rhinorrhea, sore throat, chest pain, palpitations, abdominal pain, N/V, dysuria, frequency, urgency. Denies recent abx or hospitalization. Denies hx of pulmonary or renal disease. Denies use of NSAIDs. Physical Exam (per Admitting): General Appearance: + mild distress, + obese (morbidly obese), + pertinent finding (sitting up in bed, on BiPAP) Head: normocephalic, atraumatic Eyes: normal inspection, sclerae normal ENT: hearing grossly normal, + pertinent finding (BiPAP in place) Neck: supple, trachea midline Respiratory/Chest: normal breath sounds, no accessory muscle use, + rhonchi , + wheezing, + pertinent finding (mild respiratory distress. speaks in short sentences. saturating well on BiPAP.) Cardiovascular: no murmur, + tachycardia (regular rhythm) Abdomen/GI: normal bowel sounds, non tender, soft Back: normal inspection Extremities/Musculoskelatal: no calf tenderness, + pertinent finding (1+ swelling bilateral LE- chronic per patient) Neurologic/Psych: alert, normal mood/affect, oriented x 3, + pertinent finding (grossly nonfocal) Skin: normal color, warm/dry, + pertinent finding (2 skin tears right anterior lower leg) Hospital Course ACUTE HYPOXIC RESPIRATORY FAILURE Related to COPD exacerbation Intubated on vent support sedated with versed Blood cultures pending received empirical abx that was d/c after procalcitonin was normal CXR on admission showed Mediastinal widening, possibly secondary to fat deposition Right basal airspace opacity versus overlying chest wall tissues ID on board, recommended to d/c abx since there is any clear source of infection at this time. On solumedrol Plan to wean off vent today Continue monitor in the ICU 11/23 S/P day 2 extubation Clinically improved blood cx and urine cx no growth IV solumedrol d/c will transfer to medical Pt said that he has appointment coming to get sleep study done Not on any home med for his resp will get overnight oximetry tonight 2 step exercise on discharge 11/24 S/P day 3 extubation blood cx and urine cx no growth 2 step exercise done yesterday qualified pt for oxygen Overnight nocturnal oximetry done last night also qualified pt for oxygen Will need to get a sleep study done as an outpatient Not on any inhaler at home will consult pulmonary before discharge home will give block and case maker script for oxygen ACUTE RENAL FAILURE Creatinine on admission 7, last creatinine in [facility] was 1.1 in 2016 Had emergent HD done last night after failed medical therapy for hyperkalemia Nephrology on board No further HD for now, will continue monitor Avoid nephrotoxic agent Continue to hold ACEI Monitor BMP 11/24 Creatine continue to improve to 1.4 today Dialysis catheter removed has good urinary output continue monitor BMP avoid nephrotoxic agents resolved HYPERKALEMIA K was 6.6 on admission In the ER received calcium gluconate, insulin with dextrose, Kayexalate, Repeat K last night was 7.5 Underwent emergent HD K today 4.2 continue monitor BMP avoid nephrotoxic agent Resolved TOBACCO ABUSE Counseling on smoking cessation HYPOTENSION Possibly due to hypovolemia Hold lisinopril/ HCTZ Off levophed BP started to elevated will add low dose hydralazine prn Stable ECHO done showed * The study was technically limited. * The left ventricular ejection fraction is grossly normal. * Grossly normal valvular structure and function. Widened Mediastinum Seen on CXR CT chest showed no evidence of intramural hematoma within the thoracic aorta. Decreased sensitivity for detection of thoracic aortic dissection on this unenhanced exam but normal caliber thoracic aorta. Encephalopathy Elevated ammonia, hypoxia, CT head was negative Unable to assess now since pt is sedated on versed Plan to titrate off sedation and reeval 11/24 Off sedation mental status is at baseline Resolved DM TYPE 2 Recent Hba1c 6.6 on 11/21/16 metformin on hold Novolog sliding scale coverage Stable DEPRESSION Continue home psych med DVT PROPHYLAXIS on heparin subq CODE STATUS FULL CODE DISPOSITION Will discharge when medically stable Consultants: Nephrology ID Critical care Total time spent on discharge = 35 minutes This includes examination of the patient, discharge planning, medication reconciliation, and communication with other providers. Discharge Instructions DI: Medical v4 Discharge Instructions Date of Service Nov 24, 2016. Admission Reason for Admission: Hyperkalemia, Renal Failure Discharge Discharge Diagnosis / Problem: ACUTE HYPOXIC RESPIRATORY FAILURE, HYPERKALEMIA , ACUTE KIDNEY FAILURE Discharge Goals Goal(s): Decrease discomfort, Improve function, Improve disease control Activity Recommendations Activity Limitations: resume your previous activity ( TOLERATED) . Instructions / Follow-Up Instructions / Follow-Up Follow up with your primary care provider Dr. Wolff on 11/28 @ 10:05 am Follow up with pulmonology in 1-2 weeks (please call to schedule appointment) Continue 2 L oxygen supplement with ambulation and at night (during sleep) Case management arranged for the home oxygen You will need an official sleep study and as outpatient severity to have CPAP titration to alleviate obstructions. You should avoid operating heavy machinery, alcohol or sedatives agents such as narcotic and benzodiazepines until official diagnosis of obstructive sleep apnea is made and you receive adequate treatment. Counseling on smoking cessation Counseling on weight loss and diet avoid nephrotoxic agents Continue monitor your blood pressure and bring blood pressure log at your next follow up appointment with Dr. Wolff. Hold Lisinopril/Hydrochlorothiazide for now until seeing your primary care provider ( Dr. Wolff will let you know when to resume it) Current Hospital Diet Patient's current hospital diet: Diabetes Type 2 Diet, Low Potassium Diet (2g K) Discharge Diet Recommended Diet: Diabetes Type 2 Diet Pending Studies Studies pending at discharge: no Laboratory Results Hemoglobin A1c Test 11/21/16 03:50 Range/Units Estimated Average Glucose 143 mg/dl Hemoglobin A1c 6.6 H 4.5-5.6 % Medical Emergencies . Who to Call and When: Medical Emergencies: If at any time you feel your situation is an emergency, please call 911 immediately. . Non-Emergent Contact Non-Emergency issues call your: Primary Care Provider Call Non-Emergent contact if: you have any medication questions . . "Provider Documentation" section prepared by Jun Viveros. . VTE Core Measure Inpt VTE Proph given/why not?: Unfractionated heparin SQ Additional Copies To Syed Wolff M.D.(ANIYAH)
== END 2016-11-24 17:56 | disposition home health service (06) | DRG 208 ==
LOC: C.EDB 14:48 → C.MSICU 17:46 → ENRESERV 18:13 → C.MS2W 11-23 10:29
PROVIDERS: ADMIT Hospitalist; ATTEND Internal Medicine
PROC: 5A1935Z Respiratory Ventilation, Less than 24 Consecutive Hours (ICD-10-PCS; principal; 2016-11-20)
DX: J96.01 Acute respiratory failure with hypoxia (principal); G93.41 Metabolic encephalopathy; J44.1 Chronic obstructive pulmonary disease with (acute) exacerbation; Z68.43 Body mass index [BMI] 50.0-59.9, adult; N17.9 Acute kidney failure, unspecified; F41.9 Anxiety disorder, unspecified; F32.9 Major depressive disorder, single episode, unspecified; E11.9 Type 2 diabetes mellitus without complications; E78.5 Hyperlipidemia, unspecified; I10 Essential (primary) hypertension; E66.01 Morbid (severe) obesity due to excess calories; E87.5 Hyperkalemia; I95.1 Orthostatic hypotension; Z79.82 Long term (current) use of aspirin

== ENCOUNTER → 2017-01-18 | Outpatient (CLI) | payer BC ==
[~2017-01-18] MED LIST: AMT50 PO; ASPI81TA28 PO; BUPR150T7 PO; LISI-787 PO; LPT40 PO; METF1000 PO; NRN300 PO; SERT-234 PO; VALA1TAB31 PO
--- NOTE | 2017-01-19 06:45 | SPLIT NIGHT TECHNICIAN REPORT ---
[facility] Split Night Polysomnogram - [place] [facility] Report Study date: 01/18/2017 Referring Physician: HEBER Alvarez Name: KARL HANDLEY Maryam [place] Hand: LEENA Banerjee. Date of : 1970 Height: 46 years, Height 5' 8" Sex: Male Weight: 370 lbs Age: 46 Neck Circum: BMI: Medications: 56.25 Cqpdzisdu-[id number] mg, Aspirin 81 mg, Gabapentin 300 mg, Amitriptyline 50 mg, Sertraline 100 mg, Atorvastatin 40 mg, Bupropion extended release, 150 mg, Metformin 1000 mg, Valacyclovir 1000 mg, lisinopril-HCTZ 20-12.5 mg Patient History 46 yr. old male here for a possible modified split night sleep study with ETC02 if AHI >15. Patient complains of waking up gasping for air if he is sleeping supine. Patient was recently started on supplemental 02 from a recent hospitalization. Patients [place] Sleepiness Scale Score is 7/24. Parameters Monitored NPSG: E1-M2, E2-M1, Fp1-M2, Fp2-M1, F3-M2, F4-M2, F4-M1, C3-M2, C4-M2, C4-M1, O1-M2, O2-M2, O2-M1, T3-M2, T4-M1, P3-M2, P4-M1, CHIN1, CHIN2, HR, EKG, Legs, PFLOW, SNOR, FLOW, CFLOW, Tidal Volume, THOR, ABDO, SpO2, PLTH, CPRESS, ETCO2 Wave, ETCO2, pH SLEEP SUMMARY DATA DIAGNOSTIC TREATMENT Lights Out: 9:34:36 PM 1:18:06 AM Lights On: 1:12:36 AM 6:18:06 AM Total Recording Time (TRT): 217.5 min. 300.5 min. Total Sleep Time (TST): 126.5 min. 296.5 min. NREM Time: 84.0 min. 209.5 min. REM Time: 42.5 min. 87.0 min. Sleep Period Time (SPT): 132.0 min. 300.0 min. Sleep Efficiency (SE): 58 % 99 % Sleep Latency: 85.5 min. 0.0 min. Arousal Index: 13.8 2.6 PAP Treatment Levels: 4, 5, 6, 7, 8, 9, 10, 11, 12, 13, 14 * Optimal Pressure(s) SLEEP STAGING DATA DIAGNOSTIC TREATMENT Duration (min) TST % Duration (min) TST % Stage Wake: 91.0 min. -- 3.5 min. -- WASO: 6.0 min. -- 3.5 min. -- NREM: 84.0 min. 66 % 209.5 min. 71 % Stage N1: 7.0 min. 6 % 6.5 min. 2 % Stage N2: 77.0 min. 61 % 187.0 min. 63 % Stage N3: 0.0 min. 0 % 16.0 min. 5 % REM: 42.5 min. 34 % 87.0 min. 29 % POSITIONAL DATA Event Count Index Event Count Index Supine: 121 57.4 47 13.5 Supine NREM: 98 70.0 27 9.6 Supine REM: 23 32 20 30 Non-Supine: N/A N/A 10 6.8 Non-Supine NREM: N/A N/A 2 3.0 Non-Supine REM: N/A N/A 8 10.2 AROUSAL SUMMARY DATA: Event Count Index Event Count Index Apnea Arousals: 6 5.2 0 0.2 Hypopnea Arousals: 17 8.1 0 0.0 Snore Arousals: 0 0.0 6 1.2 PLM Arousals: 0 0.0 0 0.0 Non-Specific Arousals: 5 2.4 3 0.6 Total Arousals: 29 13.8 13 2.6 MYOCLONUS (PLM) Event Count Index Event Count Index PLM: 0 0.0 4 0.8 PLM AROUSAL: 0 0.0 0 0.0 PLM W/O AROUSAL 0 0.0 4 0.8 PLM W/RESP EVENT 0 0.0 0 0.0 MYOCLONUS (PLM) Event Count Index Event Count Index LM: 2 17.1 27 5.5 LM AROUSAL: 2 0.9 4 0.8 LM W/O AROUSAL LM W/RESP EVENT LM NON SPECIFIC 28 13.3 26 5.3 HEART RATE DATA DIAGNOSTIC TREATMENT Sleep (bpm): 102 90 REM (bpm): 66 89 NREM (bpm): 81 88 Tachycardia Count: 0 0 Tachycardia Duration: 0.00 0 Bradycardia Count: 0 0 Bradycardia Duration: 0.00 0 DIAGNOSTIC PORTION TREATMENT PORTION RESPIRATORY DATA Event Count Index Event Count Index AHI: -- 57.4 -- 11.5 RDI: -- 57.4 -- 12 Obstructive Apnea: 11 5.2 1 0.2 Central Apnea: 0 0.0 0 0.0 Mixed Apnea: 0 0.0 0 0.0 Hypopnea: 110 52.2 56 11.3 RERA: 0 0.0 0 0.0 Total Apneas: 11 5.2 1 0.2 RESPIRATORY DATA REM NREM SLEEP REM NREM SLEEP Supine Position: Obstructive Apneas: 9 2 11 1 0 1 Central Apneas: 0 0 0 0 0 0 Mixed Apneas: 0 0 0 0 0 0 Hypopneas: 14 96 110 19 27 46 RERA 0 0 0 0 0 0 Total Supine Events: 23 98 121 20 27 47 Supine AHI: 32 70.0 57.4 30 9.6 13.5 Supine RDI: 32.5 70.0 57.4 30.0 9.6 13.5 REM NREM SLEEP REM NREM SLEEP Non-Supine Position: Obstructive Apneas: N/A N/A N/A 0 0 0 Central Apneas: N/A N/A N/A 0 0 0 Mixed Apneas: N/A N/A N/A 0 0 0 Hypopneas: N/A N/A N/A 8 2 10 RERA N/A N/A N/A 0 0 0 Total Supine Events: N/A N/A N/A 8 2 10 Supine AHI: N/A N/A N/A 10.2 3.0 6.8 Supine RDI: N/A N/A N/A 10.2 3.0 6.8 OXYGEN DESTAURATION DATA: Event Count Index Event Count Index REM Desaturations: 39 55.1 33 22.8 NREM Desaturations: 150 107.1 36 10.3 SNORE DATA DIAGNOSTIC TREATMENT Snore Time: 2.5 1:18:06 AM Snore TST%: 1 1 Snore Arousal Count: 0 6 Snore Arousal Index: 0.0 1.2 Desaturation Event Summary: Minimum %SpO2 Event Count Mean/Min/Max Duration(sec.) Desaturation Index % Time In Bed > 90 55 16.6 / 4.8 / 59.0 54.1 11.8 86 - 90 129 14.7 / 4.0 / 59.0 27.0 55.6 81 - 85 81 18.0 / 4.3 / 54.8 58.7 16.0 76 - 80 54 17.7 / 4.3 / 53.5 82.0 7.7 71 - 75 25 26.9 / 6.3 / 56.5 91.3 3.2 66 - 70 12 16.5 / 5.0 / 32.8 62.5 2.2 61 - 65 3 22.3 / 7.8 / 48.5 37.9 0.9 56 - 60 1 10.5 / 10.5 / 10.5 16.1 0.7 51 - 55 1 10.5 / 10.5 / 10.5 10.5 1.1 < 50 0 N/A 0.0 0.7 OXYGEN SATURATION DATA DIAGNOSTIC TREATMENT SpO2 Mean Sleep: 76 % 88 % SpO2 Mean REM: 66 % 89 % SpO2 Mean NREM: 81 % 88 % SpO2 Minimum Sleep: 41 % 74 % SpO2 Minimum REM: 41 % 74 % SpO2 Minimum NREM: 46 % 77 % Time Below 90% (TST): 120.0 206.4 Time Below 88% (TST): 115.0 100.0 Total REM NREM Awake <50% 3.5 min. 3.4 min. 0.1 min. 0.0 min. 51 - 60% 9.5 min. 8.6 min. 0.8 min. 0.0 min. 61 - 70% 16.3 min. 14.2 min. 2.1 min. 0.0 min. 71 - 80% 55.9 min. 23.0 min. 32.8 min. 0.1 min. 81 - 90% 369.8 min. 43.1 min. 240.2 min. 86.5 min. 91 - 100% 61.0 min. 37.1 min. 16.8 min. 7.1 min. Average 85 81 86 88 Minimum SpO2 41 41 46 79 Desaturation Event Index 31.1 33.4 38.0 7.6 # Desat. Events below 89% 264 68 186 10 Time(%) with Saturation below 89% 64.0 15.0 36.4 12.5 Time(min.) with Saturation below 89% 330.1 77.6 187.9 64.6 Recording [place] [facility] Comments: Mr. Handley slept in the right and supine positions. Tachycardia noted. No PLMs noted. No bruxism noted. Snoring was noted and scored as a 2 on a scale of 0 through 5. (0=no snoring, 5=snoring loud enough to be heard through a closed door or down the garcia way) At 1:17 am, Mr. Handley met specific Split-Night criteria during the diagnostic portion of this study. CPAP was initiated at +4 CMH2O room air and up-titrated to a level of +14 CMH2O Cflex 1, which nearly eliminated all respiratory events and snoring. A Ricketts and [employer] Eson 2 nasal mask, was used during titration. Mr. Handley did not wake to use the restroom during the night. Mr. Handley stated, I had a good night. The final report will be interpreted and signed by a sleep physician. The completed physician report will then be placed in the patient medical record. Therapy Event: Therapy (cm H20) 0 4 5 6 7 8 Total Time at Pressure (min.) 217.5 10.7 24.6 19.1 35.8 15.4 TST at Pressure (min.) 126.5 10.7 24.6 19.1 35.8 15.4 # Periods 1 1 1 1 1 1 Sleep Onset (min.) 85.5 0.0 0.0 0.0 0.0 0.0 REM Onset (min.) 171.0 N/A N/A N/A N/A 14.8 Sleep Efficiency % 58 100 100 100 100 100 Wakefulness (%) 41.8 0.0 0.0 0.0 0.0 0.0 Wakefulness (min.) 91.0 0.0 0.0 0.0 0.0 0.0 NREM 1 (%) 3.2 0.0 0.0 0.0 1.4 0.0 NREM 1 (min.) 7.0 0.0 0.0 0.0 0.5 0.0 NREM 2 (%) 35.4 100.0 91.9 77.1 71.7 96.1 NREM 2 (min.) 77.0 10.7 22.6 14.7 25.7 14.8 NREM 3 (%) 0.0 0.0 8.1 22.9 26.9 0.0 NREM 3 (min.) 0.0 0.0 2.0 4.4 9.6 0.0 REM (%) 19.5 0.0 0.0 0.0 0.0 3.9 REM (min.) 42.5 0.0 0.0 0.0 0.0 0.6 # Arousals 29 0 0 0 3 1 Arousal Index 13.8 0.0 0.0 0.0 5.0 3.9 # Snore 105 0 1 2 4 1 Snore Index 49.8 0.0 2.4 6.3 6.7 3.9 AHI 57.4 28.1 14.6 15.7 5.0 23.3 AHI Supine 57.4 28.1 14.6 15.7 5.0 23.3 AHI Non-Supine N/A N/A N/A N/A N/A N/A NREM AHI 70.0 28.1 14.6 15.7 5.0 20.2 REM AHI 32.5 N/A N/A N/A N/A 99.0 RDI 57.4 28.1 14.6 15.7 5.0 23.3 # Obstructive 11 0 0 0 0 1 # Central Ap 0 0 0 0 0 0 # Mixed 0 0 0 0 0 0 # Hypopneas 110 5 6 5 3 5 RERAS 0 0 0 0 0 0 Total Respiratory Events 121 5 6 5 3 6 Time Below SpO2 89.00% (min.) 117.5 10.7 24.6 18.3 21.0 7.9 Mean NREM SpO2 (%) 81 83 85 86 88 88 Mean REM SpO2 (%) 66 N/A N/A N/A N/A 88 Mean Sleep SpO2 (%) 76 83 85 86 88 88 Min NREM SpO2 (%) 46 77 80 82 85 82 Min REM SpO2 (%) 41 N/A N/A N/A N/A 86 Position Supine (min.) 126.5 10.7 24.6 19.1 35.8 15.4 Position Non-supine (min.) 0.0 0.0 0.0 0.0 0.0 0.0 LM Index Sleep 17.1 0.0 0.0 3.1 3.4 0.0 LM Index NREM 12.9 0.0 0.0 3.1 3.4 0.0 LM Index REM 25.4 N/A N/A N/A N/A 0.0 Mean Heart Rate (bpm) 102 100 99 98 95 94 Min Heart Rate (bpm) 79 94 94 91 87 74 Therapy (cm H20) 9 10 11 12 13 14 Total Time at Pressure (min.) 9.6 9.0 9.3 121.4 12.7 32.5 TST at Pressure (min.) 9.6 9.0 9.3 118.9 12.2 32.0 # Periods 1 1 1 1 1 1 Sleep Onset (min.) 0.0 0.0 0.0 0.0 0.0 0.0 REM Onset (min.) 0.0 0.0 0.0 0.0 0.0 0.0 Sleep Efficiency % 100 100 100 97 96 98 Wakefulness (%) 0.0 0.0 0.0 2.1 3.9 1.5 Wakefulness (min.) 0.0 0.0 0.0 2.5 0.5 0.5 NREM 1 (%) 0.0 0.0 10.8 2.9 7.9 1.5 NREM 1 (min.) 0.0 0.0 1.0 3.5 1.0 0.5 NREM 2 (%) 0.0 0.0 5.4 80.7 0.0 0.0 NREM 2 (min.) 0.0 0.0 0.5 98.0 0.0 0.0 NREM 3 (%) 0.0 0.0 0.0 0.0 0.0 0.0 NREM 3 (min.) 0.0 0.0 0.0 0.0 0.0 0.0 REM (%) 100.0 100.0 83.8 14.3 88.2 96.9 REM (min.) 9.6 9.0 7.8 17.4 11.2 31.5 # Arousals 0 0 1 7 0 1 Arousal Index 0.0 0.0 6.5 3.5 0.0 1.9 # Snore 1 3 2 37 1 3 Snore Index 6.3 20.0 12.9 18.7 4.9 5.6 AHI 31.4 46.6 32.4 5.0 14.8 3.8 AHI Supine 31.4 46.6 32.4 4.0 N/A N/A AHI Non-Supine N/A N/A N/A 6.9 14.8 3.8 NREM AHI N/A N/A 0.0 3.0 0.0 0.0 REM AHI 31.4 46.6 38.6 17.3 16.1 3.8 RDI 31.4 46.6 32.4 5.0 14.8 3.8 # Obstructive 0 0 0 0 0 0 # Central Ap 0 0 0 0 0 0 # Mixed 0 0 0 0 0 0 # Hypopneas 5 7 5 10 3 2 RERAS 0 0 0 0 0 0 Total Respiratory Events 5 7 5 10 3 2 Time Below SpO2 89.00% (min.) 9.1 8.3 7.7 38.6 1.8 0.1 Mean NREM SpO2 (%) N/A N/A 89 89 94 94 Mean REM SpO2 (%) 82 84 85 88 91 92 Mean Sleep SpO2 (%) 82 84 86 89 91 92 Min NREM SpO2 (%) N/A N/A 83 84 92 93 Min REM SpO2 (%) 74 76 79 78 85 88 Position Supine (min.) 9.6 9.0 9.3 75.4 0.0 0.0 Position Non-supine (min.) 0.0 0.0 0.0 43.4 12.2 32.0 LM Index Sleep 31.4 0.0 12.9 9.6 4.9 1.9 LM Index NREM N/A N/A 40.0 5.9 0.0 0.0 LM Index REM 31.4 0.0 7.7 31.1 5.4 1.9 Mean Heart Rate (bpm) 96 94 90 87 85 82 Min Heart Rate (bpm) 74 81 70 68 68 67
--- NOTE | 2017-01-22 06:56 | POLYSOMNOGRAPH REPORT ---
CLINICAL DATA: A 46-year-old male with BMI of 56.3, referred by Gloria Andrade for split-night sleep study. He was recently started on oxygen at night after a recent hospitalization. His [place] Sleepiness score is 7/24. SLEEP ARCHITECTURE: For the diagnostic portion of the study, sleep period time was 132 minutes. Total sleep time was 126.5 minutes, divided between 84 minutes of non-REM sleep and 42.5 minutes of REM sleep. Sleep latency was delayed at 85.5 minutes. Sleep efficiency was 58%. Sleep consisted of stage N1 6%, stage N2 61% and REM 34%. For the treatment portion of the study, sleep period time was 300 minutes. Total sleep time was 296.5 minutes, divided between 209.5 minutes of non-REM sleep and 87 minutes of REM sleep. Sleep latency was immediate. Sleep efficiency was 99%. Sleep consisted of stage N1 2%, stage N2 63%, stage N3 5% and REM 29%. AROUSAL DATA: Prior to treatment, 29 arousals were recorded for an index of 13.8 per hour. During treatment, 13 arousals were recorded for an index of 2.6 per hour. PERIODIC LIMB MOVEMENT DATA: Prior to treatment, 28 limb movements during sleep were noted for an index of 13.3 per hour. During treatment, 26 limb movements were noted for an index of 5.3 per hour. ELECTROCARDIOGRAM: Heart rates ranged from 66-102 beats per minute. No arrhythmias were noted. RESPIRATORY DATA: Prior to treatment, severe MEHRDAD was documented. The diagnostic AHI was 57.4. There were 11 obstructive apneic episodes and 110 hypopneic episodes recorded before treatment. The average AHI during treatment was 11.5. There was 1 obstructive apneic episode and 56 hypopneic episodes. OXIMETRY DATA: Significant nocturnal hypoxemia was seen. Oxygen [place] prior to treatment was 41% during REM sleep. Mean saturation with treatment was 88%. TRAILER TECHNICIAN'S COMMENTS: The patient slept in the right and supine positions. Snoring was mild to moderate, rated 2 on a scale of 1-5. At 1:17 a.m., the patient met split-night criteria. He used a Ricketts and [employer] Eson 2 nasal mask. He was titrated up to 14 cm of water pressure, C-Flex setting 1. At his final pressure setting, he slept for 32 minutes with an AHI of 3.8 with resolution of his hypoxemia. IMPRESSION: Severe sleep apnea/hypopnea with diagnostic apnea hypopnea index of 57.4 with severe nocturnal hypoxemia, corrected with CPAP 14 cm water pressure, C-Flex 1 with a Ricketts and [employer] Eson 2 nasal mask. RECOMMENDATIONS: The patient should be started on above-noted treatment regimen and seen back in followup within 90 days to document efficacy and compliance. MTDD
== END | disposition home or self-care (01) ==
LOC: C.NEUR 21:00
PROVIDERS: ATTEND Nurse Practitioner Family
DX: G47.30 Sleep apnea, unspecified (principal)